=== PATIENT | male | born 1940 | race Caucasian/White ===

== ENCOUNTER → 2017-06-28 10:54 | Outpatient (CLI) | payer MEDICARE, OTHER, SELFPAY ==
--- NOTE | 2017-06-28 | DI.RAD.S_ITS ---
PROCEDURE: XR CERVICAL SPINE 2V OR 3V INDICATIONS: NECK PAIN, SPINAL STENOSIS TECHNIQUE: 3 view(s) of the cervical spine were acquired. COMPARISON: [facility], , CERVICAL SPINE 2 OR 3 VIEWS, 05/13/2014, 11:52. FINDINGS: Bones: Reversal of cervical lordosis, unchanged. No fractures or dislocations to the C7 level. The lateral masses of C1 appear intact on the odontoid view. No suspicious bony lesions. Multilevel disc degeneration and spondylosis C3-4 through C6-7 as before. Soft tissues: No prevertebral soft tissue swelling. Atheromatous calcifications in the carotid bifurcations again noted. IMPRESSION: 1. No acute bony abnormality. 2. Reversal of cervical lordosis and diffuse degenerative disc disease, unchanged. Dictated by: Santos Renteria M.D. on 06/28/2017 at 11:54 Approved by: Santos Renteria M.D. on 06/28/2017 at 11:56
== END ==
PROVIDERS: PCP Family Medicine; Visit Provider Family Medicine
DX: M54.2 Cervicalgia (principal); M50.30 Other cervical disc degeneration, unspecified cervical region
CPT/HCPCS: 72040

== ENCOUNTER 2017-08-12 07:30 | Outpatient (RCR) | payer MEDICARE, OTHER, SELFPAY ==
--- NOTE | 2017-07-11 12:43 | PT.OIE ---
Current Diagnoses Spinal stenosis, cervical region (07/11/17) Other cervical disc degeneration, unspecified cervical region (07/11/17) Cervicalgia (07/11/17) Past Medical History (Last Reviewed 07/11/17 @ 08:42 by Suzie Patterson, PT) CVA (cerebral vascular accident) (Acute) Myocardial infarction (Acute) Provider Visit Care Team Role Provider Type Sol Stockton MD Attending Provider Physician Family Provider Primary Care Provider Specialty: Family Practice Address: [address] [place] [address], [facility] Email: Physical Therapy Initial Evaluation PT-OP-A Visit Information Start: 07/11/17 07:26 Freq: Status: Active Protocol: Document 07/11/17 07:30 AMB (Rec: 07/11/17 08:38 AMB [email or web address]) Out-Patient Physical Therapy Visit Information Visit Information Visit Type Initial Evaluation Visit Note Pt seen for 10 visits previously in 2018. Visit Start Time 07:30 Visit Stop Time 08:10 Total Visit Minutes 40 Visit Number 1 Evaluation Information Evaluation Date 07/11/17 PT-OP-B Current Condition Start: 07/11/17 07:26 Freq: Status: Active Protocol: Document 07/11/17 07:30 AMB (Rec: 07/11/17 08:38 AMB [email or web address]) Current Condition History of Current Condition History of Current Condition The patient reports he has had neck discomfort for the past 1-2 years. He denies numbness tingling, or radiating pain down the arms. He finds the neck is the worst after lying on his orellana. He denies pain when he gets up in the morning. Prior Treatments and Tests Cervical spine X-ray: 06/28/17 : multilevel spondylosis and degenerative disc disease C3-4 , C6-7, reversal of cervical lordosis. Treatment Goals Patient/Caregiver Goals Decrease neck pain, improve range of motion Personal Factors Other Personal Factors That May Effect History of low back pain Therapy/Recovery PT-OP-C Subjective Start: 07/11/17 07:26 Freq: Status: Active Protocol: Document 07/11/17 07:30 AMB (Rec: 07/11/17 08:38 AMB [email or web address]) OP-PT Subjective Patient Comments Patient Comments Patient notes neck feels better with heat, feels better after PT. Patient Questionnaires Oswestry Low Back Index Oswestry Score 18 Oswestry Impairment 1 to 19% Impaired (Score 1-19) OP-PT Pain Assessment Pain Assessment Grid Paper Pain Assessment Grid Completed Yes Location Left Neck Intensity 3 Scale Used Numeric (1 - 10) PT-OP-J Posture/Palpation/Skin Start: 07/11/17 07:26 Freq: Status: Active Protocol: Document 07/11/17 07:30 AMB (Rec: 07/11/17 12:42 AMB [email or web address]) Posture Evaluation Position 1 Evaluation View Posterior Head/C-Spine Posture C-Spine Flattened Forward Head Palpation Assessment Location One Palpation Location cervical spine Palpation Details No pain with central PAs but stiffness throughout. Generally tight throughout posterior neck soft tissue bilaterally. More discomfort with deep palpation on the left. PT-OP-K Range of Motion Start: 07/11/17 07:26 Freq: Status: Active Protocol: Document 07/11/17 07:30 AMB (Rec: 07/11/17 08:50 AMB [email or web address]) Cervical Spine Range of Motion Cervical Spine Active Degrees Testing Position Sitting Flexion 45 Extension 20 Rotation Left 30 Rotation Right 60 Lateral Flexion Left 10 Lateral Flexion Right 20 ROM Limitations Soft Tissue Tightness Bony Restriction PT-OP-M Strength Start: 07/11/17 07:26 Freq: Status: Active Protocol: Document 07/11/17 07:30 AMB (Rec: 07/11/17 08:50 AMB [email or web address]) Hand Poultry Vaccinator/Pinch Strength Hand Dominance Hand Dominance Left Hand Strength Right Poultry Vaccinator (lbs) 90 Left Poultry Vaccinator (lbs) 95 PT-OP-Q Treatments Start: 07/11/17 07:26 Freq: Status: Active Protocol: Document 07/11/17 07:30 AMB (Rec: 07/11/17 12:40 AMB [email or web address]) Manual Therapy Treatment Soft Tissue Mobilization 1 Body Location L UT, levator scap, paraspinals Mobilization Type Sustained Pressure Intensity/Depth Moderate Body Position Sitting Manual Techniques 1 Type stretching with over pressure Body Location cervical spine Body Position Sitting PT-OP-T Assessment and Plan Start: 07/11/17 07:26 Freq: Status: Active Protocol: Document 07/11/17 07:30 AMB (Rec: 07/11/17 09:02 AMB [email or web address]) Physical Therapy Assessment Rehab Potential Rehabilitation Potential Good Evaluation Complexity Number of Personal Factors/Comorbidities 1-2 Number of Body Systems Impaired 3 Clinical Presentation at Evaluation Stable Impairments Impairments Pain Posture ROM Goals 2 Impairment Pain Short Term Goal (STG) The patient will relax on his orellana for 1 hour with neck pain of 2/10 or less. STG Duration 4 weeks Tailor Apprentice Goal (LTG) The patient will watch TV for 3 hours without neck pain. LTG Duration 8 weeks 1 Impairment Range of motion Short Term Goal (STG) The patient will improve his range of motion to 45 degrees of left rotation. STG Duration 4 weeks Tailor Apprentice Goal (LTG) The patient will turn his head to the left so that he can back up his truck without being overly reliant on his mirrors. LTG Duration 8 weeks Assessment Summary Assessment The patient presents with impaired cervical range of motion. Neck pain presents especially with lying on his orellana. No radiating symptoms. He has previously tried physical therapy which he found helpful. He does have a prior history of back pain, but that is not currently bothering him. He will benefit from PT to improve his cervical range of motion and decrease his pain, although he may need to adjust his habit of watching TV from his orellana. Physical Therapy Plan Frequency and Duration Frequency of Treatment 2x/Week Duration of Treatment 8 weeks Plan of Care Start Date 07/11/17 Plan of Care End Date 09/05/17 Therapeutic Interventions Therapeutic Interventions Home Exercise Program Joint Mobilizations Manual Therapy Neuromuscular Re-education Self-Care/Home Management Soft Tissue Mobilization Therapeutic Activities Therapeutic Exercises Modalities Electric Stimulation Hot Packs Traction- Mechanical Ultrasound Next Visit Focus/Plan Next Note Type Treatment Note Please Sign and Return: I have reviewed this Plan of Care and certify that the skilled therapy services above are required to meet the patient?s needs. Physician Signature Date Printed Name and Credentials Clinical Instructor Signature Printed Name and Credentials
--- NOTE | 2017-07-14 13:08 | PT.OTN ---
Physical Therapy Treatment Note PT-OP-A Visit Information Start: 07/11/17 07:26 Freq: Status: Active Protocol: Document 07/14/17 07:30 AMB (Rec: 07/14/17 07:38 AMB [id number]) Out-Patient Physical Therapy Visit Information Visit Information Visit Type Treatment Note Visit Start Time 07:30 Visit Stop Time 08:10 Total Visit Minutes 40 Visit Number 2 Evaluation Information Evaluation Date 07/14/17 PT-OP-B Current Condition Start: 07/11/17 07:26 Freq: Status: Active Protocol: Document 07/11/17 07:30 AMB (Rec: 07/11/17 08:38 AMB [email or web address]) Current Condition History of Current Condition History of Current Condition The patient reports he has had neck discomfort for the past 1-2 years. He denies numbness tingling, or radiating pain down the arms. He finds the neck is the worst after lying on his orellana. He denies pain when he gets up in the morning. Prior Treatments and Tests Cervical spine X-ray: 06/28/17 : multilevel spondylosis and degenerative disc disease C3-4 , C6-7, reversal of cervical lordosis. Treatment Goals Patient/Caregiver Goals Decrease neck pain, improve range of motion Personal Factors Other Personal Factors That May Effect History of low back pain Therapy/Recovery PT-OP-C Subjective Start: 07/11/17 07:26 Freq: Status: Active Protocol: Document 07/14/17 07:30 AMB (Rec: 07/14/17 07:38 AMB [id number]) OP-PT Subjective Patient Comments Patient Comments Pt is planning to buy a recliner. He has been busy with pruning. PT-OP-J Posture/Palpation/Skin Start: 07/11/17 07:26 Freq: Status: Active Protocol: Document 07/11/17 07:30 AMB (Rec: 07/11/17 12:42 AMB [email or web address]) Posture Evaluation Position 1 Evaluation View Posterior Head/C-Spine Posture C-Spine Flattened Forward Head Palpation Assessment Location One Palpation Location cervical spine Palpation Details No pain with central PAs but stiffness throughout. Generally tight throughout posterior neck soft tissue bilaterally. More discomfort with deep palpation on the left. PT-OP-K Range of Motion Start: 07/11/17 07:26 Freq: Status: Active Protocol: Document 07/11/17 07:30 AMB (Rec: 07/11/17 08:50 AMB [email or web address]) Cervical Spine Range of Motion Cervical Spine Active Degrees Testing Position Sitting Flexion 45 Extension 20 Rotation Left 30 Rotation Right 60 Lateral Flexion Left 10 Lateral Flexion Right 20 ROM Limitations Soft Tissue Tightness Bony Restriction PT-OP-M Strength Start: 07/11/17 07:26 Freq: Status: Active Protocol: Document 07/11/17 07:30 AMB (Rec: 07/11/17 08:50 AMB [email or web address]) Hand Aeronautical Project Engineer/Pinch Strength Hand Dominance Hand Dominance Left Hand Strength Right Aeronautical Project Engineer (lbs) 90 Left Aeronautical Project Engineer (lbs) 95 PT-OP-Q Treatments Start: 07/11/17 07:26 Freq: Status: Active Protocol: Document 07/14/17 07:30 AMB (Rec: 07/14/17 13:08 AMB [email or web address]) Manual Therapy Treatment Soft Tissue Mobilization 1 Body Location L UT, levator scap, paraspinals Mobilization Type Sustained Pressure Intensity/Depth Moderate Body Position Supine Joint Mobilizations 1 Joint C4-7 Direction unilateral PAs Grade III Body Position Hooklying Reps/Duration 15 x 3 Manual Traction Cervical Body Position Supine PT-OP-T Assessment and Plan Start: 07/11/17 07:26 Freq: Status: Active Protocol: Document 07/14/17 07:30 AMB (Rec: 07/14/17 13:08 AMB [email or web address]) Physical Therapy Assessment Assessment Summary Assessment Pt continues to be stiff into L rotation. Physical Therapy Plan Frequency and Duration Frequency of Treatment 2x/Week Duration of Treatment 8 weeks Plan of Care Start Date 07/11/17 Plan of Care End Date 09/05/17 Next Visit Focus/Plan Next Note Type Treatment Note Next Visit Plan Progress cervical rotation ROM Please Sign and Return: I have reviewed this Plan of Care and certify that the skilled therapy services above are required to meet the patient?s needs. Physician Signature Date Printed Name and Credentials Clinical Instructor Signature Printed Name and Credentials
--- NOTE | 2017-07-18 15:17 | PT.OTN ---
Current Diagnoses Cervicalgia (07/18/17) Physical Therapy Treatment Note PT-OP-A Visit Information Start: 07/11/17 07:26 Freq: Status: Active Protocol: Document 07/18/17 07:30 AMB (Rec: 07/18/17 07:38 AMB [id number]) Out-Patient Physical Therapy Visit Information Visit Information Visit Type Treatment Note Visit Start Time 07:30 Visit Stop Time 08:10 Total Visit Minutes 40 Visit Number 3 Evaluation Information Evaluation Date 07/14/17 PT-OP-B Current Condition Start: 07/11/17 07:26 Freq: Status: Active Protocol: Document 07/11/17 07:30 AMB (Rec: 07/11/17 08:38 AMB [email or web address]) Current Condition History of Current Condition History of Current Condition The patient reports he has had neck discomfort for the past 1-2 years. He denies numbness tingling, or radiating pain down the arms. He finds the neck is the worst after lying on his orellana. He denies pain when he gets up in the morning. Prior Treatments and Tests Cervical spine X-ray: 06/28/17 : multilevel spondylosis and degenerative disc disease C3-4 , C6-7, reversal of cervical lordosis. Treatment Goals Patient/Caregiver Goals Decrease neck pain, improve range of motion Personal Factors Other Personal Factors That May Effect History of low back pain Therapy/Recovery PT-OP-C Subjective Start: 07/11/17 07:26 Freq: Status: Active Protocol: Document 07/18/17 07:30 AMB (Rec: 07/18/17 07:38 AMB [id number]) OP-PT Subjective Patient Comments Patient Comments Pt has not bought the recliner yet, is planning on going clam digging. PT-OP-J Posture/Palpation/Skin Start: 07/11/17 07:26 Freq: Status: Active Protocol: Document 07/11/17 07:30 AMB (Rec: 07/11/17 12:42 AMB [email or web address]) Posture Evaluation Position 1 Evaluation View Posterior Head/C-Spine Posture C-Spine Flattened Forward Head Palpation Assessment Location One Palpation Location cervical spine Palpation Details No pain with central PAs but stiffness throughout. Generally tight throughout posterior neck soft tissue bilaterally. More discomfort with deep palpation on the left. PT-OP-K Range of Motion Start: 07/11/17 07:26 Freq: Status: Active Protocol: Document 07/11/17 07:30 AMB (Rec: 07/11/17 08:50 AMB [email or web address]) Cervical Spine Range of Motion Cervical Spine Active Degrees Testing Position Sitting Flexion 45 Extension 20 Rotation Left 30 Rotation Right 60 Lateral Flexion Left 10 Lateral Flexion Right 20 ROM Limitations Soft Tissue Tightness Bony Restriction PT-OP-M Strength Start: 07/11/17 07:26 Freq: Status: Active Protocol: Document 07/11/17 07:30 AMB (Rec: 07/11/17 08:50 AMB [email or web address]) Hand Hide Curer/Pinch Strength Hand Dominance Hand Dominance Left Hand Strength Right Hide Curer (lbs) 90 Left Hide Curer (lbs) 95 PT-OP-Q Treatments Start: 07/11/17 07:26 Freq: Status: Active Protocol: Document 07/18/17 07:30 AMB (Rec: 07/18/17 13:56 AMB [id number]) Manual Therapy Treatment Soft Tissue Mobilization 1 Body Location L UT, levator scap, paraspinals Mobilization Type Sustained Pressure Intensity/Depth Moderate Body Position Supine Joint Mobilizations 1 Joint C4-7 Direction unilateral PAs Grade III Body Position Hooklying Reps/Duration 15 x 3 Manual Traction Cervical Body Position Supine Manual Techniques 2 Type contract relax Comments L rotation 1 Type stretching with over pressure Body Location cervical spine Body Position Sitting PT-OP-T Assessment and Plan Start: 07/11/17 07:26 Freq: Status: Active Protocol: Document 07/18/17 07:30 AMB (Rec: 07/18/17 13:56 AMB [id number]) Physical Therapy Assessment Assessment Summary Assessment Improved rotation to the right , L remains stiff. Physical Therapy Plan Frequency and Duration Frequency of Treatment 2x/Week Duration of Treatment 8 weeks Plan of Care Start Date 07/11/17 Plan of Care End Date 09/05/17 Next Visit Focus/Plan Next Note Type Treatment Note Next Visit Plan Progress cervical rotation ROM Please Sign and Return: I have reviewed this Plan of Care and certify that the skilled therapy services above are required to meet the patient?s needs. Physician Signature Date Printed Name and Credentials Clinical Instructor Signature Printed Name and Credentials
--- NOTE | 2017-07-21 08:14 | PT.OTN ---
Current Diagnoses Cervicalgia (07/21/17) Physical Therapy Treatment Note PT-OP-A Visit Information Start: 07/11/17 07:26 Freq: Status: Active Protocol: Document 07/21/17 07:30 AMB (Rec: 07/21/17 07:32 AMB [id number]) Out-Patient Physical Therapy Visit Information Visit Information Visit Type Treatment Note Visit Start Time 07:30 Visit Stop Time 08:10 Total Visit Minutes 40 Visit Number 4 Evaluation Information Evaluation Date 07/14/17 PT-OP-B Current Condition Start: 07/11/17 07:26 Freq: Status: Active Protocol: Document 07/11/17 07:30 AMB (Rec: 07/11/17 08:38 AMB [email or web address]) Current Condition History of Current Condition History of Current Condition The patient reports he has had neck discomfort for the past 1-2 years. He denies numbness tingling, or radiating pain down the arms. He finds the neck is the worst after lying on his orellana. He denies pain when he gets up in the morning. Prior Treatments and Tests Cervical spine X-ray: 06/28/17 : multilevel spondylosis and degenerative disc disease C3-4 , C6-7, reversal of cervical lordosis. Treatment Goals Patient/Caregiver Goals Decrease neck pain, improve range of motion Personal Factors Other Personal Factors That May Effect History of low back pain Therapy/Recovery PT-OP-C Subjective Start: 07/11/17 07:26 Freq: Status: Active Protocol: Document 07/21/17 07:30 AMB (Rec: 07/21/17 07:32 AMB [id number]) OP-PT Subjective Patient Comments Patient Reported Progress Improving PT-OP-J Posture/Palpation/Skin Start: 07/11/17 07:26 Freq: Status: Active Protocol: Document 07/11/17 07:30 AMB (Rec: 07/11/17 12:42 AMB [email or web address]) Posture Evaluation Position 1 Evaluation View Posterior Head/C-Spine Posture C-Spine Flattened Forward Head Palpation Assessment Location One Palpation Location cervical spine Palpation Details No pain with central PAs but stiffness throughout. Generally tight throughout posterior neck soft tissue bilaterally. More discomfort with deep palpation on the left. PT-OP-K Range of Motion Start: 07/11/17 07:26 Freq: Status: Active Protocol: Document 07/11/17 07:30 AMB (Rec: 07/11/17 08:50 AMB [email or web address]) Cervical Spine Range of Motion Cervical Spine Active Degrees Testing Position Sitting Flexion 45 Extension 20 Rotation Left 30 Rotation Right 60 Lateral Flexion Left 10 Lateral Flexion Right 20 ROM Limitations Soft Tissue Tightness Bony Restriction PT-OP-M Strength Start: 07/11/17 07:26 Freq: Status: Active Protocol: Document 07/11/17 07:30 AMB (Rec: 07/11/17 08:50 AMB [email or web address]) Hand Vending Supervisor/Pinch Strength Hand Dominance Hand Dominance Left Hand Strength Right Vending Supervisor (lbs) 90 Left Vending Supervisor (lbs) 95 PT-OP-Q Treatments Start: 07/11/17 07:26 Freq: Status: Active Protocol: Document 07/21/17 07:30 AMB (Rec: 07/21/17 07:32 AMB [id number]) Manual Therapy Treatment Soft Tissue Mobilization 1 Body Location L UT, levator scap, paraspinals Mobilization Type Sustained Pressure Intensity/Depth Moderate Body Position Supine Joint Mobilizations 1 Joint C4-7 Direction unilateral PAs Grade III Body Position Hooklying Reps/Duration 15 x 3 Manual Traction Cervical Body Position Supine Manual Techniques 2 Type contract relax Comments L rotation 1 Type stretching with over pressure Body Location cervical spine Body Position Sitting PT-OP-T Assessment and Plan Start: 07/11/17 07:26 Freq: Status: Active Protocol: Document 07/21/17 07:30 AMB (Rec: 07/21/17 07:32 AMB [id number]) Physical Therapy Assessment Assessment Summary Assessment L rotation slightly improved, continues to be stiff Physical Therapy Plan Frequency and Duration Frequency of Treatment 2x/Week Duration of Treatment 8 weeks Plan of Care Start Date 07/11/17 Plan of Care End Date 09/05/17 Next Visit Focus/Plan Next Note Type Treatment Note Next Visit Plan Progress HEP Please Sign and Return: I have reviewed this Plan of Care and certify that the skilled therapy services above are required to meet the patient?s needs. Physician Signature Date Printed Name and Credentials Clinical Instructor Signature Printed Name and Credentials
--- NOTE | 2017-07-25 10:30 | PT.OTN ---
Current Diagnoses Cervicalgia (07/25/17) Physical Therapy Treatment Note PT-OP-A Visit Information Start: 07/11/17 07:26 Freq: Status: Active Protocol: Document 07/25/17 07:30 AMB (Rec: 07/25/17 07:31 AMB [id number]) Out-Patient Physical Therapy Visit Information Visit Information Visit Type Treatment Note Visit Start Time 07:30 Visit Stop Time 08:10 Total Visit Minutes 40 Visit Number 5 Evaluation Information Evaluation Date 07/11/17 PT-OP-B Current Condition Start: 07/11/17 07:26 Freq: Status: Active Protocol: Document 07/11/17 07:30 AMB (Rec: 07/11/17 08:38 AMB [email or web address]) Current Condition History of Current Condition History of Current Condition The patient reports he has had neck discomfort for the past 1-2 years. He denies numbness tingling, or radiating pain down the arms. He finds the neck is the worst after lying on his orellana. He denies pain when he gets up in the morning. Prior Treatments and Tests Cervical spine X-ray: 06/28/17 : multilevel spondylosis and degenerative disc disease C3-4 , C6-7, reversal of cervical lordosis. Treatment Goals Patient/Caregiver Goals Decrease neck pain, improve range of motion Personal Factors Other Personal Factors That May Effect History of low back pain Therapy/Recovery PT-OP-C Subjective Start: 07/11/17 07:26 Freq: Status: Active Protocol: Document 07/25/17 07:30 AMB (Rec: 07/25/17 07:31 AMB [id number]) OP-PT Subjective Patient Comments Patient Reported Progress Same PT-OP-J Posture/Palpation/Skin Start: 07/11/17 07:26 Freq: Status: Active Protocol: Document 07/11/17 07:30 AMB (Rec: 07/11/17 12:42 AMB [email or web address]) Posture Evaluation Position 1 Evaluation View Posterior Head/C-Spine Posture C-Spine Flattened Forward Head Palpation Assessment Location One Palpation Location cervical spine Palpation Details No pain with central PAs but stiffness throughout. Generally tight throughout posterior neck soft tissue bilaterally. More discomfort with deep palpation on the left. PT-OP-K Range of Motion Start: 07/11/17 07:26 Freq: Status: Active Protocol: Document 07/11/17 07:30 AMB (Rec: 07/11/17 08:50 AMB [email or web address]) Cervical Spine Range of Motion Cervical Spine Active Degrees Testing Position Sitting Flexion 45 Extension 20 Rotation Left 30 Rotation Right 60 Lateral Flexion Left 10 Lateral Flexion Right 20 ROM Limitations Soft Tissue Tightness Bony Restriction PT-OP-M Strength Start: 07/11/17 07:26 Freq: Status: Active Protocol: Document 07/11/17 07:30 AMB (Rec: 07/11/17 08:50 AMB [email or web address]) Hand Ore Smelter/Pinch Strength Hand Dominance Hand Dominance Left Hand Strength Right Ore Smelter (lbs) 90 Left Ore Smelter (lbs) 95 PT-OP-Q Treatments Start: 07/11/17 07:26 Freq: Status: Active Protocol: Document 07/25/17 07:30 AMB (Rec: 07/25/17 07:31 AMB [id number]) Manual Therapy Treatment Soft Tissue Mobilization 1 Body Location L UT, levator scap, paraspinals Mobilization Type Sustained Pressure Intensity/Depth Moderate Body Position Supine Joint Mobilizations 1 Joint C4-7 Direction unilateral PAs Grade III Body Position Hooklying Reps/Duration 15 x 3 Manual Traction Cervical Body Position Supine Manual Techniques 2 Type contract relax Comments L rotation 1 Type stretching with over pressure Body Location cervical spine Body Position Sitting PT-OP-R Modalities Start: 07/11/17 07:26 Freq: Status: Active Protocol: Document 07/25/17 07:30 AMB (Rec: 07/25/17 10:29 AMB [email or web address]) Hot Pack/Cold Pack Treatment Hot Pack Location cervical spine during manual Patient Position Hooklying Treatment Duration (minutes) 30 Patient Tolerance Good PT-OP-T Assessment and Plan Start: 07/11/17 07:26 Freq: Status: Active Protocol: Document 07/25/17 07:30 AMB (Rec: 07/25/17 10:29 AMB [email or web address]) Physical Therapy Assessment Assessment Summary Assessment Pt reports he can continue to feel discomfort at end range rotation and sidebending. Physical Therapy Plan Next Visit Focus/Plan Next Note Type Treatment Note Next Visit Plan Review self mobilization with movement Please Sign and Return: I have reviewed this Plan of Care and certify that the skilled therapy services above are required to meet the patient?s needs. Physician Signature Date Printed Name and Credentials Clinical Instructor Signature Printed Name and Credentials
--- NOTE | 2017-07-29 08:15 | PT.OTN ---
Current Diagnoses Cervicalgia (07/29/17) Physical Therapy Treatment Note PT-OP-A Visit Information Start: 07/11/17 07:26 Freq: Status: Active Protocol: Document 07/29/17 07:30 AMB (Rec: 07/29/17 07:30 AMB [id number]) Out-Patient Physical Therapy Visit Information Visit Information Visit Type Treatment Note Visit Start Time 07:30 Visit Stop Time 08:10 Total Visit Minutes 40 Visit Number 6 Evaluation Information Evaluation Date 07/11/17 PT-OP-B Current Condition Start: 07/11/17 07:26 Freq: Status: Active Protocol: Document 07/11/17 07:30 AMB (Rec: 07/11/17 08:38 AMB [email or web address]) Current Condition History of Current Condition History of Current Condition The patient reports he has had neck discomfort for the past 1-2 years. He denies numbness tingling, or radiating pain down the arms. He finds the neck is the worst after lying on his orellana. He denies pain when he gets up in the morning. Prior Treatments and Tests Cervical spine X-ray: 06/28/17 : multilevel spondylosis and degenerative disc disease C3-4 , C6-7, reversal of cervical lordosis. Treatment Goals Patient/Caregiver Goals Decrease neck pain, improve range of motion Personal Factors Other Personal Factors That May Effect History of low back pain Therapy/Recovery PT-OP-C Subjective Start: 07/11/17 07:26 Freq: Status: Active Protocol: Document 07/29/17 07:30 AMB (Rec: 07/29/17 07:30 AMB [id number]) OP-PT Subjective Patient Comments Patient Comments Pt reports stiffness at end range cervical rotation and sidebending, not painful at midrange. PT-OP-J Posture/Palpation/Skin Start: 07/11/17 07:26 Freq: Status: Active Protocol: Document 07/11/17 07:30 AMB (Rec: 07/11/17 12:42 AMB [email or web address]) Posture Evaluation Position 1 Evaluation View Posterior Head/C-Spine Posture C-Spine Flattened Forward Head Palpation Assessment Location One Palpation Location cervical spine Palpation Details No pain with central PAs but stiffness throughout. Generally tight throughout posterior neck soft tissue bilaterally. More discomfort with deep palpation on the left. PT-OP-K Range of Motion Start: 06/04/18 07:26 Freq: Status: Active Protocol: Document 07/11/17 07:30 AMB (Rec: 07/11/17 08:50 AMB [email or web address]) Cervical Spine Range of Motion Cervical Spine Active Degrees Testing Position Sitting Flexion 45 Extension 20 Rotation Left 30 Rotation Right 60 Lateral Flexion Left 10 Lateral Flexion Right 20 ROM Limitations Soft Tissue Tightness Bony Restriction PT-OP-M Strength Start: 07/11/17 07:26 Freq: Status: Active Protocol: Document 07/11/17 07:30 AMB (Rec: 07/11/17 08:50 AMB [email or web address]) Hand Production Operations Manager/Pinch Strength Hand Dominance Hand Dominance Left Hand Strength Right Production Operations Manager (lbs) 90 Left Production Operations Manager (lbs) 95 PT-OP-Q Treatments Start: 07/11/17 07:26 Freq: Status: Active Protocol: Document 07/29/17 07:30 AMB (Rec: 07/29/17 07:30 AMB [id number]) Manual Therapy Treatment Soft Tissue Mobilization 1 Body Location L UT, levator scap, paraspinals Mobilization Type Sustained Pressure Intensity/Depth Moderate Body Position Supine Joint Mobilizations 1 Joint C4-7 Direction unilateral PAs Grade III Body Position Hooklying Reps/Duration 15 x 3 Manual Traction Cervical Body Position Supine Manual Techniques 2 Type contract relax Comments B rotation 1 Type stretching with over pressure Body Location cervical spine Body Position Sitting PT-OP-R Modalities Start: 07/11/17 07:26 Freq: Status: Active Protocol: Document 07/29/17 07:30 AMB (Rec: 07/29/17 08:15 AMB [id number]) Hot Pack/Cold Pack Treatment Hot Pack Location cervical spine Patient Position Hooklying Patient Tolerance Good Comments with manual therapy PT-OP-T Assessment and Plan Start: 07/11/17 07:26 Freq: Status: Active Protocol: Document 07/29/17 07:30 AMB (Rec: 07/29/17 07:30 AMB [id number]) Physical Therapy Assessment Assessment Summary Assessment Pt has been careful with his body mechanics, so has not been noticing as much pain, but ROM remains stiff. Physical Therapy Plan Next Visit Focus/Plan Next Note Type Treatment Note Next Visit Plan Review stretching techniques
--- NOTE | 2017-08-01 10:04 | PT.OTN ---
Current Diagnoses Cervicalgia (08/01/17) Physical Therapy Treatment Note PT-OP-A Visit Information Start: 07/11/17 07:26 Freq: Status: Active Protocol: Document 08/01/17 07:30 AMB (Rec: 08/01/17 07:38 AMB [id number]) Out-Patient Physical Therapy Visit Information Visit Information Visit Type Treatment Note Visit Start Time 07:30 Visit Stop Time 08:15 Total Visit Minutes 45 Visit Number 7 Evaluation Information Evaluation Date 07/11/17 PT-OP-B Current Condition Start: 07/11/17 07:26 Freq: Status: Active Protocol: Document 07/11/17 07:30 AMB (Rec: 07/11/17 08:38 AMB [email or web address]) Current Condition History of Current Condition History of Current Condition The patient reports he has had neck discomfort for the past 1-2 years. He denies numbness tingling, or radiating pain down the arms. He finds the neck is the worst after lying on his orellana. He denies pain when he gets up in the morning. Prior Treatments and Tests Cervical spine X-ray: 06/28/17 : multilevel spondylosis and degenerative disc disease C3-4 , C6-7, reversal of cervical lordosis. Treatment Goals Patient/Caregiver Goals Decrease neck pain, improve range of motion Personal Factors Other Personal Factors That May Effect History of low back pain Therapy/Recovery PT-OP-C Subjective Start: 07/11/17 07:26 Freq: Status: Active Protocol: Document 08/01/17 07:30 AMB (Rec: 08/01/17 07:38 AMB [id number]) OP-PT Subjective Patient Comments Patient Comments Standing on the cement in his shop increased ankle pain, but didn't bother the neck. PT-OP-J Posture/Palpation/Skin Start: 07/11/17 07:26 Freq: Status: Active Protocol: Document 07/11/17 07:30 AMB (Rec: 07/11/17 12:42 AMB [email or web address]) Posture Evaluation Position 1 Evaluation View Posterior Head/C-Spine Posture C-Spine Flattened Forward Head Palpation Assessment Location One Palpation Location cervical spine Palpation Details No pain with central PAs but stiffness throughout. Generally tight throughout posterior neck soft tissue bilaterally. More discomfort with deep palpation on the left. PT-OP-K Range of Motion Start: 07/11/17 07:26 Freq: Status: Active Protocol: Document 07/11/17 07:30 AMB (Rec: 07/11/17 08:50 AMB [email or web address]) Cervical Spine Range of Motion Cervical Spine Active Degrees Testing Position Sitting Flexion 45 Extension 20 Rotation Left 30 Rotation Right 60 Lateral Flexion Left 10 Lateral Flexion Right 20 ROM Limitations Soft Tissue Tightness Bony Restriction PT-OP-M Strength Start: 07/11/17 07:26 Freq: Status: Active Protocol: Document 07/11/17 07:30 AMB (Rec: 07/11/17 08:50 AMB [email or web address]) Hand Headline Writer/Pinch Strength Hand Dominance Hand Dominance Left Hand Strength Right Headline Writer (lbs) 90 Left Headline Writer (lbs) 95 PT-OP-Q Treatments Start: 07/11/17 07:26 Freq: Status: Active Protocol: Document 08/01/17 07:30 AMB (Rec: 08/01/17 10:00 AMB [id number]) Manual Therapy Treatment Soft Tissue Mobilization 1 Body Location L UT, levator scap, paraspinals Mobilization Type Sustained Pressure Intensity/Depth Moderate Body Position Supine Joint Mobilizations 1 Joint C4-7 Direction unilateral PAs Grade III Body Position Hooklying Reps/Duration 15 x 3 Manual Traction Cervical Body Position Supine Manual Techniques 2 Type contract relax Comments B rotation 1 Type stretching with over pressure Body Location cervical spine Body Position Sitting PT-OP-R Modalities Start: 07/11/17 07:26 Freq: Status: Active Protocol: Document 08/01/17 07:30 AMB (Rec: 08/01/17 10:00 AMB [id number]) Hot Pack/Cold Pack Treatment Hot Pack Location cervical spine Patient Position Hooklying Patient Tolerance Good Comments with manual therapy PT-OP-T Assessment and Plan Start: 07/11/17 07:26 Freq: Status: Active Protocol: Document 08/01/17 07:30 AMB (Rec: 08/01/17 10:00 AMB [id number]) Physical Therapy Assessment Assessment Summary Assessment Pt has been tolerating PT well , lying on the orellana can make the neck stiff. Physical Therapy Plan Frequency and Duration Frequency of Treatment 2x/Week Duration of Treatment 8 weeks Plan of Care Start Date 07/11/17 Plan of Care End Date 09/05/17 Next Visit Focus/Plan Next Note Type Treatment Note Next Visit Plan Review HEP
--- NOTE | 2017-08-05 08:15 | PT.OTN ---
Current Diagnoses Cervicalgia (08/05/17) Physical Therapy Treatment Note PT-OP-A Visit Information Start: 07/11/17 07:26 Freq: Status: Active Protocol: Document 08/05/17 07:30 AMB (Rec: 08/05/17 07:37 AMB [id number]) Out-Patient Physical Therapy Visit Information Visit Information Visit Type Treatment Note Visit Start Time 07:30 Visit Stop Time 08:10 Total Visit Minutes 40 Visit Number 8 Evaluation Information Evaluation Date 07/11/17 PT-OP-B Current Condition Start: 07/11/17 07:26 Freq: Status: Active Protocol: Document 07/11/17 07:30 AMB (Rec: 07/11/17 08:38 AMB [email or web address]) Current Condition History of Current Condition History of Current Condition The patient reports he has had neck discomfort for the past 1-2 years. He denies numbness tingling, or radiating pain down the arms. He finds the neck is the worst after lying on his orellana. He denies pain when he gets up in the morning. Prior Treatments and Tests Cervical spine X-ray: 06/28/17 : multilevel spondylosis and degenerative disc disease C3-4 , C6-7, reversal of cervical lordosis. Treatment Goals Patient/Caregiver Goals Decrease neck pain, improve range of motion Personal Factors Other Personal Factors That May Effect History of low back pain Therapy/Recovery PT-OP-C Subjective Start: 07/11/17 07:26 Freq: Status: Active Protocol: Document 08/05/17 07:30 AMB (Rec: 08/05/17 07:37 AMB [id number]) OP-PT Subjective Patient Comments Patient Comments Neck feeling good this morning . Shower makes it feel better , no problem getting up from bed, but the orellana angle and still be a problem PT-OP-J Posture/Palpation/Skin Start: 07/11/17 07:26 Freq: Status: Active Protocol: Document 07/11/17 07:30 AMB (Rec: 07/11/17 12:42 AMB [email or web address]) Posture Evaluation Position 1 Evaluation View Posterior Head/C-Spine Posture C-Spine Flattened Forward Head Palpation Assessment Location One Palpation Location cervical spine Palpation Details No pain with central PAs but stiffness throughout. Generally tight throughout posterior neck soft tissue bilaterally. More discomfort with deep palpation on the left. PT-OP-K Range of Motion Start: 07/11/17 07:26 Freq: Status: Active Protocol: Document 07/11/17 07:30 AMB (Rec: 07/11/17 08:50 AMB [email or web address]) Cervical Spine Range of Motion Cervical Spine Active Degrees Testing Position Sitting Flexion 45 Extension 20 Rotation Left 30 Rotation Right 60 Lateral Flexion Left 10 Lateral Flexion Right 20 ROM Limitations Soft Tissue Tightness Bony Restriction PT-OP-M Strength Start: 07/11/17 07:26 Freq: Status: Active Protocol: Document 07/11/17 07:30 AMB (Rec: 07/11/17 08:50 AMB [email or web address]) Hand Mobile Product Manager/Pinch Strength Hand Dominance Hand Dominance Left Hand Strength Right Mobile Product Manager (lbs) 90 Left Mobile Product Manager (lbs) 95 PT-OP-Q Treatments Start: 07/11/17 07:26 Freq: Status: Active Protocol: Document 08/05/17 07:30 AMB (Rec: 08/05/17 08:13 AMB [id number]) Manual Therapy Treatment Soft Tissue Mobilization 1 Body Location L UT, levator scap, paraspinals Mobilization Type Sustained Pressure Intensity/Depth Moderate Body Position Supine Joint Mobilizations 1 Joint C4-7 Direction unilateral PAs Grade III Body Position Hooklying Reps/Duration 15 x 3 Manual Traction Cervical Body Position Supine Manual Techniques 2 Type contract relax Comments B rotation 1 Type stretching with over pressure Body Location cervical spine Body Position Sitting PT-OP-R Modalities Start: 07/11/17 07:26 Freq: Status: Active Protocol: Document 08/05/17 07:30 AMB (Rec: 08/05/17 08:13 AMB [id number]) Hot Pack/Cold Pack Treatment Hot Pack Location cervical spine Patient Position Hooklying Patient Tolerance Good Comments with manual therapy PT-OP-T Assessment and Plan Start: 07/11/17 07:26 Freq: Status: Active Protocol: Document 08/05/17 07:30 AMB (Rec: 08/05/17 08:13 AMB [id number]) Physical Therapy Assessment Assessment Summary Assessment Begin discussing d/c as pt is doing well Physical Therapy Plan Frequency and Duration Frequency of Treatment 2x/Week Duration of Treatment 8 weeks Plan of Care Start Date 07/11/17 Plan of Care End Date 09/05/17 Next Visit Focus/Plan Next Note Type Treatment Note Next Visit Plan Review HEP
--- NOTE | 2017-08-12 15:36 | PT.OTN ---
Current Diagnoses Cervicalgia (08/12/17) Physical Therapy Treatment Note PT-OP-A Visit Information Start: 07/11/17 07:26 Freq: Status: Active Protocol: Document 08/12/17 07:30 AMB (Rec: 08/12/17 07:31 AMB [id number]) Out-Patient Physical Therapy Visit Information Visit Information Visit Type Discharge Summary Visit Start Time 07:30 Visit Stop Time 08:10 Total Visit Minutes 40 Visit Number 9 Evaluation Information Evaluation Date 07/11/17 PT-OP-B Current Condition Start: 07/11/17 07:26 Freq: Status: Active Protocol: Document 07/11/17 07:30 AMB (Rec: 07/11/17 08:38 AMB [email or web address]) Current Condition History of Current Condition History of Current Condition The patient reports he has had neck discomfort for the past 1-2 years. He denies numbness tingling, or radiating pain down the arms. He finds the neck is the worst after lying on his orellana. He denies pain when he gets up in the morning. Prior Treatments and Tests Cervical spine X-ray: 06/28/17 : multilevel spondylosis and degenerative disc disease C3-4 , C6-7, reversal of cervical lordosis. 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 PT-OP-J Posture/Palpation/Skin Start: 07/11/17 07:26 Freq: Status: Active Protocol: Document 07/11/17 07:30 AMB (Rec: 07/11/17 12:42 AMB [email or web address]) Posture Evaluation Position 1 Evaluation View Posterior Head/C-Spine Posture C-Spine Flattened Forward Head Palpation Assessment Location One Palpation Location cervical spine Palpation Details No pain with central PAs but stiffness throughout. Generally tight throughout posterior neck soft tissue bilaterally. More discomfort with deep palpation on the left. PT-OP-K Range of Motion Start: 07/11/17 07:26 Freq: Status: Active Protocol: Document 08/12/17 07:30 AMB (Rec: 08/12/17 07:45 AMB [id number]) Cervical Spine Range of Motion Cervical Spine Active Degrees Flexion 35 Extension 26 Rotation Left 40 Rotation Right 60 Lateral Flexion Left 15 Lateral Flexion Right 25 PT-OP-M Strength Start: 07/11/17 07:26 Freq: Status: Active Protocol: Document 07/11/17 07:30 AMB (Rec: 07/11/17 08:50 AMB [email or web address]) Hand Tape Transferrer/Pinch Strength Hand Dominance Hand Dominance Left Hand Strength Right Tape Transferrer (lbs) 90 Left Tape Transferrer (lbs) 95 PT-OP-Q Treatments Start: 07/11/17 07:26 Freq: Status: Active Protocol: Document 08/12/17 07:30 AMB (Rec: 08/12/17 15:25 AMB [email or web address]) Manual Therapy Treatment Soft Tissue Mobilization 1 Body Location L UT, levator scap, paraspinals Mobilization Type Sustained Pressure Intensity/Depth Moderate Body Position Supine Joint Mobilizations 1 Joint C4-7 Direction unilateral PAs Grade III Body Position Hooklying Reps/Duration 15 x 3 Manual Traction Cervical Body Position Supine Manual Techniques 2 Type contract relax Comments B rotation 1 Type stretching with over pressure Body Location cervical spine Body Position Sitting PT-OP-R Modalities Start: 07/11/17 07:26 Freq: Status: Active Protocol: Document 08/12/17 07:30 AMB (Rec: 08/12/17 15:25 AMB [email or web address]) Hot Pack/Cold Pack Treatment Hot Pack Location cervical spine Patient Position Hooklying Patient Tolerance Good Comments with manual therapy PT-OP-T Assessment and Plan Start: 07/11/17 07:26 Freq: Status: Active Protocol: Document 08/12/17 07:30 AMB (Rec: 08/12/17 07:31 AMB [id number]) Physical Therapy Assessment Goals 2 Impairment Pain Short Term Goal (STG) The patient will relax on his orellana for 1 hour with neck pain of 2/10 or less. MET STG Duration 4 weeks Program Manager Rn Goal (LTG) The patient will watch TV for 3 hours without neck pain. NOT MET LTG Duration 8 weeks 1 Impairment Range of motion Short Term Goal (STG) The patient will improve his range of motion to 45 degrees of left rotation. PROGRESS MADE STG Duration 4 weeks Penitentiary Goal (LTG) The patient will turn his head to the left so that he can back up his truck without being overly reliant on his mirrors. NOT MET LTG Duration 8 weeks Assessment Summary Assessment The patient continues to have stiffness with cervical rotation to the left. He has improved by 10 degrees, but he will need to continue stretching his neck. Would recommend he not rest his head on the end of his couch, as this is his most painful activity. Physical Therapy Plan Discharge Physical Therapy Discharge Reasons Plateau in Progress Discharge Comments The pt really does not notice neck pain, except for when he is on his couch for an extended period of time, lying down on it. He does not get pain with sleeping in his bed.
== END 2017-10-26 13:05 ==
LOC: PHYS 07:30
PROVIDERS: Family Provider Family Medicine; PCP Family Medicine; Visit Provider Family Medicine
DX: M54.2 Cervicalgia (principal)
CPT/HCPCS: 97140; 97161

== ENCOUNTER 2017-11-15 08:34 | Outpatient (CLI) | payer MEDICARE, OTHER, SELFPAY ==
[2017-11-15] VITALS (8 sets, daily range): BP systolic 117–143; BP diastolic 73–98; PULSE 60–68; RESP 18–22; TEMP 35.9; O2SAT 96–100
--- NOTE | 2017-11-15 08:36 | DI.RAD.S_ITS ---
PROCEDURE: PAIN L/SI FACET INJ/BLK 1STL INDICATIONS: SPONDYLOSIS FINDINGS: Fluoroscopic spot filming was performed to verify placement of spinal needles at the left L4, L5, S1 level(s), as labeled on the films. Appropriate location(s) of the needle tip(s) was confirmed by injection of iodinated contrast. Dictated by: Darin Brambila M.D. on 11/16/2017 at 8:57 Approved by: Darin Brambila M.D. on 11/16/2017 at 8:58
[2017-11-15] MEDS: MIDAZOLAM 5 MG/5 ML VIAL IV (09:36)
--- NOTE | 2017-11-15 09:45 | PM.PROC.1 ---
Procedures Date/Time Date of procedure: 11/15/17 Time of procedure: 09:45 General Procedure description: POST OP DIAGNOSIS 1. FACET ARTHROPATHY PROCEDURES 1. Left L4, L5 and S1 MB BLOCKS PHYSICIAN: Blake Ventura DO INDICATIONS Иван is referred by Dr. Stockton for treatment of Left Axial LBP. DESCRIPTION OF PROCEDURE Fluoroscopically guided, contrast-controlled left L4, L5 and S1 medial branch blocks with 0.5cc of 0.5% Marcaine. Following denial of allergy and review of potential side effects and complications, including, but not necessarily limited to, infection, allergic reaction, local tissue breakdown, nerve injury, paralysis, stroke and possible , the patient indicated that the patient understood and agreed to proceed. An informed consent document was signed by the patient, witnessed by a nurse, and placed in the patient's chart. After review of previous anaesthesic history and IV conscious sedation the patient was deemed safe to proceed with todays procedure with IV conscious sedation as ASA class II designation. Safety time-out was performed to confirm patient ID, procedure to be performed and site of procedure. IV sedation was accomplished with a combination of 4mg of Versed was administered by the RN after DO order, titrated to patient comfort during the course of the procedure while the patient remained responsive to all verbal commands. In the prone position, following sterile prep and drape of the lumbar region, the left L4, L5 and S1 anatomical location of the medial branch of the dorsal ramus was identified fluoroscopically. Subsequently an anesthetic skin wheal using 1% lidocaine solution was initiated at each of the anatomical spots. Subsequently then a 22-gauge 3.5-inch spinal needle was atraumatically introduced and advanced under fluoroscopic guidance at each of the corresponding sites at the left L4, L5 and S1 MB. After negative aspiration, 0.2 cc of Isovue 200 was injected, confirming placement without vascular or intrathecal uptake. Subsequently then 0.5 cc of 0.5% Marcaine solution was injected at each of the corresponding sites at the left L4, L5 and S1 medial branch locations. The patient tolerated the procedure well without signs or symptoms of complications. The patient tolerated the procedure well without signs or symptoms of complications prior to transfer to the recovery area continued monitoring without incident. Post-procedure, the patient was monitored initiating provocative activities to measure the amount of relief from block of the facetogenic pain. The patient reported a VAS of 7 prior to the procedure and a post-procedure VAS of 1. It has been a pleasure to assist in the diagnostic and therapeutic care of your patient. Total Fluoroscopy Time: 24.8 seconds Total Conscious Sedation Time: 24min POST OP INSTRUCTIONS The patient was provided with a Pain Log to complete over the next several hours and subsequent days prior to the patient's follow up with the ordering physician. If the patient has drafter engineering relief to the solution applied, then they may be a candidate for medial branch rhizotomy. The patient is aware, was provided, once again, with a Pain Log and will follow up with the referring physician for review and clinical correlation Blake Ventura DO Complications: none
[2017-11-15] MEDS: IOPAMIDOL 15 ML VIAL 3 ML INJ (09:58)
[2017-11-15] MEDS: BETAMETHASONE 30 MG/5 ML MDV 12 MG INJ (09:59)
[2017-11-15] MEDS: BUPIVACAINE 0.5% (PF) VIAL 30 ML INJ (09:59)
== END 2017-11-15 10:18 | disposition home or self-care (01) ==
LOC: RAD 08:35
PROVIDERS: Family Provider Family Medicine; PCP Family Medicine; Visit Provider Physical Medicine & Rehabilitation
DX: M47.817 Spondylosis without myelopathy or radiculopathy, lumbosacral region (principal); M47.816 Spondylosis without myelopathy or radiculopathy, lumbar region
CPT/HCPCS: 64493; 64494; 99152; J0702; J2250

== ENCOUNTER → 2018-05-15 12:00 | Outpatient (CLI) | payer MEDICARE, OTHER, SELFPAY ==
[2018-05-15 09:32] LABS: INR 2.4 (0.9-1.3); Prothrombin Time 28.1 SECONDS (10.1-12.7)
== END ==
PROVIDERS: PCP Family Medicine; Visit Provider Family Medicine
DX: Z79.01 Long term (current) use of anticoagulants (principal)
CPT/HCPCS: 85610

== ENCOUNTER 2018-06-05 07:30 | Outpatient (RCR) | payer MEDICARE, OTHER, SELFPAY ==
--- NOTE | 2018-05-10 15:01 | PT.OIE ---
Current Diagnoses Other cervical disc degeneration, unspecified cervical region (05/10/18) Past Medical History (Last Reviewed 12/09/17 @ 09:54 by Blake Ventura DO) CVA (cerebral vascular accident) (Acute) Myocardial infarction (Acute) Provider Visit Care Team Role Provider Type Sol Stockton MD Attending Provider Physician Primary Care Provider Specialty: Family Practice Address: [address] [place] [address], [facility] Email: Physical Therapy Initial Evaluation PT-OP-A Visit Information Start: 05/10/18 13:00 Freq: Status: Active Protocol: Document 05/10/18 13:01 BS (Rec: 05/10/18 13:03 BS [id number]) Out-Patient Physical Therapy Visit Information Visit Information Visit Type Initial Evaluation Visit Start Time 09:00 Visit Stop Time 09:45 Total Visit Minutes 45 Visit Number 1 Evaluation Information Evaluation Date 05/10/18 PT-OP-B Current Condition Start: 05/10/18 13:00 Freq: Status: Active Protocol: Document 05/10/18 13:01 BS (Rec: 05/10/18 13:44 BS [id number]) Current Condition History of Current Condition Onset Date 2 months ago Current Complaints Neck pain/discomfort History of Current Condition Pt is a 77 year old male who presents with complaints of neck pain/discomfort and stiffness. He reports that this began around 2 months ago , insidious onset, and that is it most noticeable when lying down on the sofa. He states that he is aware of his posture and attempts to keep his neck in a neutral position with use of a towel roll while lying down to watch television. Pt does not report difficulties with other ADLs and denies radicular symptoms into his extremities. Prior Treatments and Tests Pt has been to [facility] for LBP previously. Future Testing and Treatments Planned Cervical mobility exercises, postural strengthening, manual therapy for tight upper traps bilaterally, and cervical mobiliations to address hypombility. Treatment Goals Patient/Caregiver Goals To reduce neck pain Prior Functional Status Baseline Function- ADL's Independent Baseline Function- Mobility Independent Current Functional Impairments (Reported) Functional Limitations- ADL's Unable to lie down for prolonged periods of time due to neck pain/discomfort. Functional Limitations- Recreation/ reading, yard work Hobbies PT-OP-C Subjective Start: 05/10/18 13:00 Freq: Status: Active Protocol: Document 05/10/18 13:01 BS (Rec: 05/10/18 13:44 BS [id number]) OP-PT Subjective Patient Comments Patient Comments Pt states he has had success in the past with therapy for his low back so wanted to give it a try to reduce neck pain/ discomfort. Patient Reported Progress Improving Patient Questionnaires Neck Disability Index NDI Score 7 Neck Disability Index Impairment 1 to 19% Impaired (Score 1-9) OP-PT Pain Assessment Pain Assessment Grid Paper Pain Assessment Grid Completed Yes Location Neck Pain Location Details Pt reports it is not pinpoint, but just general aching along cervical spine Intensity 4 Scale Used Numeric (1 - 10) Description Aching Dull Frequency Occasional Radiating Location denies radiation of pain Variations/Patterns most noticeable after lying down on sofa Pain Aggravating Factors Position Pain Alleviating Factors Position Changing Position Patient Stated Pain Goal To get rid of neck pain Home Pain Medication Use Pain Medications Used No Comments Pain Comments Pt states its more of a discomfort than pain. PT-OP-F Manual Assessment Start: 05/10/18 13:00 Freq: Status: Active Protocol: Document 05/10/18 13:01 BS (Rec: 05/10/18 13:44 BS [id number]) Manual Assessments Soft Tissue Assessment Soft Tissue Mobility Assessment Hypertonicity and tightness of bilateral upper traps, levator, and cervical paraspinals. Joint Mobility Assessment Joint Mobility Assessment Hypomobility with central and unilateral PAs C2-C7. PT-OP-G Mobility & Gait Start: 05/10/18 13:00 Freq: Status: Active Protocol: Document 05/10/18 13:01 BS (Rec: 05/10/18 13:44 [id number]) OP Mobility Evaluation Bed Mobility Supine to and from Sit Independent Transfers Sit to Stand Independent no use of AD. Bed to Chair Transfers Independent no use of AD. OP Gait Assessment Gait Gait Assistance Required: Independent Able to Maintain Weight Bearing Status Yes During Gait Assistive Devices Assistive Device None Gait Deviations General Gait Pattern Decreased Stride Length Flexed Trunk PT-OP-J Posture/Palpation/Skin Start: 05/10/18 13:00 Freq: Status: Active Protocol: Document 05/10/18 13:01 BS (Rec: 05/10/18 13:44 BS [id number]) Posture Evaluation Position 1 Head/C-Spine Posture Forward Head T-Spine Posture Increased Kyphosis L-Spine Posture Decreased Lordosis Shoulder Posture (L) Rounded (R) Rounded Scapula Posture (L) Protracted Palpation Assessment Location One Palpation Location Bilateral upper trapezius and levator Palpation Findings Soft Tissue Tightness PT-OP-K Range of Motion Start: 05/10/18 13:00 Freq: Status: Active Protocol: Document 05/10/18 13:01 BS (Rec: 05/10/18 13:44 BS [id number]) Cervical Spine Range of Motion Cervical Spine Active Degrees Testing Position Sitting Flexion 45 Extension 40 Rotation Left 40 Rotation Right 42 Lateral Flexion Left 16 Lateral Flexion Right 15 ROM Limitations Soft Tissue Tightness Comments ROM most limited with bilateral sidebend, rotation, and flexion. Shoulder Goniometric Range of Motion Shoulder ROM Limitations Comments Gross shoulder AROM WFL and pain free. PT-OP-L Special Tests Start: 05/10/18 13:00 Freq: Status: Active Protocol: Document 05/10/18 13:01 BS (Rec: 05/10/18 13:44 [id number]) Special Tests Cervical Spine Special Tests Spurling's Test Test Results negative Traction Test Results negative PT-OP-M Strength Start: 05/10/18 13:00 Freq: Status: Active Protocol: Document 05/10/18 13:01 BS (Rec: 05/10/18 13:44 [id number]) Cervical Spine Strength Cervical Spine Manual Muscle Testing Testing Position Sitting Flexion (C1-2) 4+ Good+ Extension 4+ Good+ Rotation Left 4+ Good+ Rotation Right 4+ Good+ Lateral Flexion Left (C3) 4+ Good+ Lateral Flexion Right (C3) 4+ Good+ PT-OP-Q Treatments Start: 05/10/18 13:00 Freq: Status: Active Protocol: Document 05/10/18 13:01 BS (Rec: 05/10/18 13:44 BS [id number]) Therapeutic Exercises Sitting Exercises 2 Sitting Exercise Name Upper trapezius stretch Side bilateral Reps/Minutes 2x30 each Comments VCs to drop shoulder for increased stretch 1 Sitting Exercise Name Cervical AROM: SB/ROT Side bilateral Reps/Minutes x10 each way Manual Therapy Treatment Soft Tissue Mobilization 1 Body Location Bilateral upper trapezius Mobilization Type Myofascial Release Intensity/Depth Moderate Body Position Sitting Self-Care/Home Management Treatment Education Patient Education Home Exercise Program Posture PT-OP-T Assessment and Plan Start: 05/10/18 13:00 Freq: Status: Active Protocol: Document 05/10/18 13:01 BS (Rec: 05/10/18 13:44 BS [id number]) Physical Therapy Assessment Rehab Potential Rehabilitation Potential Good Evaluation Complexity Number of Personal Factors/Comorbidities 0 Number of Body Systems Impaired 1-2 Clinical Presentation at Evaluation Stable Impairments Impairments Functional Activities Functional Mobility Pain Posture ROM Soft Tissue Mobility Goals One Impairment HEP Short Term Goal (STG) Pt to become independent with HEP for cervical mobility and stretching of upper traps. STG Duration 3 2 Impairment ROM Short Term Goal (STG) Cervical AROM B rotation to improve to at least 70 degrees . STG Duration 4 Mcc Goal (LTG) Pt to be able to lie down on couch for at leat 2 hours without experiencing neck pain /discomfort. LTG Duration 8 1 Impairment Posture Short Term Goal (STG) Pt to become more aware of correct posture and positioning strategies to avoid aggravation of neck symptoms. STG Duration 4 Game Breeding Farm Manager Goal (LTG) Cervical AROM for bilateral sidebending to increase to at least 25 degrees. LTG Duration 8 Assessment Summary Assessment Pt presents with positional cervical discomfort/pain secondary to cervical hypomobility, decreased ROM, and postural deficits. Pt will benefit from skilled PT to address the above listed impairments to promote return to PLOF pain-free. Physical Therapy Plan Frequency and Duration Frequency of Treatment 1-2x/week Duration of Treatment 6-8 weeks Plan of Care Start Date 05/10/18 Plan of Care End Date 07/05/18 Therapeutic Interventions Therapeutic Interventions Home Exercise Program Joint Mobilizations Manual Therapy Patient/Caregiver Education Self-Care/Home Management Soft Tissue Mobilization Taping Therapeutic Activities Therapeutic Exercises Modalities Cold Pack/Ice Massage Electric Stimulation Hot Packs Next Visit Focus/Plan Next Note Type Treatment Note Next Visit Plan Cervical ROM, cervical mobilizations, STM to upper traps, postural strengthening.
--- NOTE | 2018-05-10 15:04 | PT.OPPOC ---
Current Diagnoses Other cervical disc degeneration, unspecified cervical region (05/10/18) Provider Visit Care Team Role Provider Type Sol Stockton MD Attending Provider Physician Primary Care Provider Specialty: Family Practice Address: [address] [place] [address], [facility] Email: Plan Of Care PT-OP-T Assessment and Plan Start: 05/10/18 13:00 Freq: Status: Active Protocol: Document 05/10/18 13:01 BS (Rec: 05/10/18 13:44 BS [id number]) Physical Therapy Assessment Rehab Potential Rehabilitation Potential Good Evaluation Complexity Number of Personal Factors/Comorbidities 0 Number of Body Systems Impaired 1-2 Clinical Presentation at Evaluation Stable Impairments Impairments Functional Activities Functional Mobility Pain Posture ROM Soft Tissue Mobility Goals One Impairment HEP Short Term Goal (STG) Pt to become independent with HEP for cervical mobility and stretching of upper traps. STG Duration 3 2 Impairment ROM Short Term Goal (STG) Cervical AROM B rotation to improve to at least 70 degrees . STG Duration 4 Senior Living Goal (LTG) Pt to be able to lie down on couch for at leat 2 hours without experiencing neck pain /discomfort. LTG Duration 8 1 Impairment Posture Short Term Goal (STG) Pt to become more aware of correct posture and positioning strategies to avoid aggravation of neck symptoms. STG Duration 4 Glass Blower Goal (LTG) Cervical AROM for bilateral sidebending to increase to at least 25 degrees. LTG Duration 8 Assessment Summary Assessment Pt presents with positional cervical discomfort/pain secondary to cervical hypomobility, decreased ROM, and postural deficits. Pt will benefit from skilled PT to address the above listed impairments to promote return to PLOF pain-free. Physical Therapy Plan Frequency and Duration Frequency of Treatment 1-2x/week Duration of Treatment 6-8 weeks Plan of Care Start Date 05/10/18 Plan of Care End Date 07/05/18 Therapeutic Interventions Therapeutic Interventions Home Exercise Program Joint Mobilizations Manual Therapy Patient/Caregiver Education Self-Care/Home Management Soft Tissue Mobilization Taping Therapeutic Activities Therapeutic Exercises Modalities Cold Pack/Ice Massage Electric Stimulation Hot Packs Next Visit Focus/Plan Next Note Type Treatment Note Next Visit Plan Cervical ROM, cervical mobilizations, STM to upper traps, postural strengthening. Plan of Care Dates Plan of Care Start Date 05/10/18 Plan of Care End Date 07/05/18 Please Sign and Return: I have reviewed this Plan of Care and certify that the skilled therapy services above are required to meet the patient?s needs. Physician Signature Date Printed Name and Credentials Clinical Instructor Signature Printed Name and Credentials
--- NOTE | 2018-05-15 15:28 | PT.OTN ---
Current Diagnoses Other cervical disc degeneration, unspecified cervical region (05/15/18) senior care (current) use of anticoagulants (05/15/18) Physical Therapy Treatment Note PT-OP-A Visit Information Start: 05/10/18 13:00 Freq: Status: Active Protocol: Document 05/15/18 07:40 BS (Rec: 05/15/18 07:44 BS [id number]) Out-Patient Physical Therapy Visit Information Visit Information Visit Type Treatment Note Visit Start Time 07:35 Visit Stop Time 08:15 Total Visit Minutes 40 Visit Number 2 PT-OP-B Current Condition Start: 05/10/18 13:00 Freq: Status: Active Protocol: Document 05/10/18 13:01 BS (Rec: 05/10/18 13:44 BS [id number]) Current Condition History of Current Condition Onset Date 2 months ago Current Complaints Neck pain/discomfort History of Current Condition Pt is a 77 year old male who presents with complaints of neck pain/discomfort and stiffness. He reports that this began around 2 months ago , insidious onset, and that is it most noticeable when lying down on the sofa. He states that he is aware of his posture and attempts to keep his neck in a neutral position with use of a towel roll while lying down to watch television. Pt does not report difficulties with other ADLs and denies radicular symptoms into his extremities. Prior Treatments and Tests Pt has been to [facility] therapy for LBP previously. Future Testing and Treatments Planned Cervical mobility exercises, postural strengthening, manual therapy for tight upper traps bilaterally, and cervical mobiliations to address hypombility. Treatment Goals Patient/Caregiver Goals To reduce neck pain Prior Functional Status Baseline Function- ADL's Independent Baseline Function- Mobility Independent Current Functional Impairments (Reported) Functional Limitations- ADL's Unable to lie down for prolonged periods of time due to neck pain/discomfort. Functional Limitations- Recreation/ reading, yard work Hobbies PT-OP-C Subjective Start: 05/10/18 13:00 Freq: Status: Active Protocol: Document 05/15/18 07:40 BS (Rec: 05/15/18 07:44 BS [id number]) OP-PT Subjective Patient Comments Patient Comments Pt states his neck pain is as usual and only bothering him when lying down on the couch. His R low back continues to hurt after traveling in car last week. Patient Reported Progress Same PT-OP-F Manual Assessment Start: 05/10/18 13:00 Freq: Status: Active Protocol: Document 05/10/18 13:01 BS (Rec: 05/10/18 13:44 BS [id number]) Manual Assessments Soft Tissue Assessment Soft Tissue Mobility Assessment Hypertonicity and tightness of bilateral upper traps, levator, and cervical paraspinals. Joint Mobility Assessment Joint Mobility Assessment Hypomobility with central and unilateral PAs C2-C7. PT-OP-G Mobility & Gait Start: 05/10/18 13:00 Freq: Status: Active Protocol: Document 05/10/18 13:01 BS (Rec: 05/10/18 13:44 BS [id number]) OP Mobility Evaluation Bed Mobility Supine to and from Sit Independent Transfers Sit to Stand Independent no use of AD. Bed to Chair Transfers Independent no use of AD. OP Gait Assessment Gait Gait Assistance Required: Independent Able to Maintain Weight Bearing Status Yes During Gait Assistive Devices Assistive Device None Gait Deviations General Gait Pattern Decreased Stride Length Flexed Trunk PT-OP-J Posture/Palpation/Skin Start: 05/10/18 13:00 Freq: Status: Active Protocol: Document 05/10/18 13:01 BS (Rec: 05/10/18 13:44 BS [id number]) Posture Evaluation Position 1 Head/C-Spine Posture Forward Head T-Spine Posture Increased Kyphosis L-Spine Posture Decreased Lordosis Shoulder Posture (L) Rounded (R) Rounded Scapula Posture (L) Protracted Palpation Assessment Location One Palpation Location Bilateral upper trapezius and levator Palpation Findings Soft Tissue Tightness PT-OP-K Range of Motion Start: 05/10/18 13:00 Freq: Status: Active Protocol: Document 05/10/18 13:01 BS (Rec: 05/10/18 13:44 BS [id number]) Cervical Spine Range of Motion Cervical Spine Active Degrees Testing Position Sitting Flexion 45 Extension 40 Rotation Left 40 Rotation Right 42 Lateral Flexion Left 16 Lateral Flexion Right 15 ROM Limitations Soft Tissue Tightness Comments ROM most limited with bilateral sidebend, rotation, and flexion. Shoulder Goniometric Range of Motion Shoulder ROM Limitations Comments Gross shoulder AROM WFL and pain free. PT-OP-L Special Tests Start: 05/10/18 13:00 Freq: Status: Active Protocol: Document 05/10/18 13:01 BS (Rec: 05/10/18 13:44 BS [id number]) Special Tests Cervical Spine Special Tests Spurling's Test Test Results negative Traction Test Results negative PT-OP-M Strength Start: 05/10/18 13:00 Freq: Status: Active Protocol: Document 05/10/18 13:01 BS (Rec: 05/10/18 13:44 BS [id number]) Cervical Spine Strength Cervical Spine Manual Muscle Testing Testing Position Sitting Flexion (C1-2) 4+ Good+ Extension 4+ Good+ Rotation Left 4+ Good+ Rotation Right 4+ Good+ Lateral Flexion Left (C3) 4+ Good+ Lateral Flexion Right (C3) 4+ Good+ PT-OP-Q Treatments Start: 05/10/18 13:00 Freq: Status: Active Protocol: Document 05/15/18 07:40 BS (Rec: 05/15/18 12:20 BS [id number]) Therapeutic Exercises Sitting Exercises 4 Sitting Exercise Name Scapular Retraction Side bilateral Reps/Minutes x15 Comments VCs for correct technique 3 Sitting Exercise Name Shoulder Rolls-Posterior Side bilateral Reps/Minutes x15 Comments VCs for correct technique 2 Sitting Exercise Name Upper trapezius stretch Side bilateral Reps/Minutes 2x30 each Comments VCs for correct technique 1 Sitting Exercise Name Cervical AROM: SB/ROT/Flex/Ext Side bilateral Reps/Minutes x10 each way Manual Therapy Treatment Soft Tissue Mobilization 2 Body Location Bilateral Suboccipitals Mobilization Type Myofascial Release Rolling Intensity/Depth Moderate Body Position Hooklying 1 Body Location Bilateral upper trapezius Mobilization Type Myofascial Release Intensity/Depth Moderate Body Position Supine Joint Mobilizations 1 Joint C2-C7 Direction Central and unilateral PAs Grade III Body Position Hooklying Comments Hypomobility throughout C spine with mobilizations. Followed by PROM into sidebend and rotation bilaterally Manual Traction Cervical Details Manual Cervical Traction Body Position Hooklying PT-OP-T Assessment and Plan Start: 05/10/18 13:00 Freq: Status: Active Protocol: Document 05/15/18 07:40 BS (Rec: 05/15/18 12:20 BS [id number]) Physical Therapy Assessment Assessment Summary Assessment Reviewed HEP with patient and with education and demonstration for correct technique with upper trapezius stretch. Manual therapy and cervical AROM with postural mm strengthening today. Physical Therapy Plan Frequency and Duration Frequency of Treatment 1-2x/week Duration of Treatment 6-8 weeks Plan of Care Start Date 05/10/18 Plan of Care End Date 07/05/18 Therapeutic Interventions Therapeutic Interventions Home Exercise Program Joint Mobilizations Manual Therapy Patient/Caregiver Education Self-Care/Home Management Soft Tissue Mobilization Taping Therapeutic Activities Therapeutic Exercises Modalities Cold Pack/Ice Massage Electric Stimulation Hot Packs Next Visit Focus/Plan Next Note Type Treatment Note Next Visit Plan Cervical ROM, mobilizations and manual therapy with progression toward more postural strengthening. Possibly trial mechanical traction.
--- NOTE | 2018-05-19 09:43 | PT.OTN ---
Current Diagnoses Other cervical disc degeneration, unspecified cervical region (05/19/18) Physical Therapy Treatment Note PT-OP-A Visit Information Start: 05/10/18 13:00 Freq: Status: Active Protocol: Document 05/19/18 07:30 AMB (Rec: 05/19/18 07:40 AMB [id number]) Out-Patient Physical Therapy Visit Information Visit Information Visit Start Time 07:35 Visit Stop Time 08:15 Total Visit Minutes 40 Visit Number 3 PT-OP-B Current Condition Start: 05/10/18 13:00 Freq: Status: Active Protocol: Document 05/10/18 13:01 BS (Rec: 05/10/18 13:44 BS [id number]) Current Condition History of Current Condition Onset Date 2 months ago Current Complaints Neck pain/discomfort History of Current Condition Pt is a 77 year old male who presents with complaints of neck pain/discomfort and stiffness. He reports that this began around 2 months ago , insidious onset, and that is it most noticeable when lying down on the sofa. He states that he is aware of his posture and attempts to keep his neck in a neutral position with use of a towel roll while lying down to watch television. Pt does not report difficulties with other ADLs and denies radicular symptoms into his extremities. Prior Treatments and Tests Pt has been to [facility] for [facility]BP previously. Future Testing and Treatments Planned Cervical mobility exercises, postural strengthening, manual therapy for tight upper traps bilaterally, and cervical mobiliations to address hypombility. Treatment Goals Patient/Caregiver Goals To reduce neck pain Prior Functional Status Baseline Function- ADL's Independent Baseline Function- Mobility Independent Current Functional Impairments (Reported) Functional Limitations- ADL's Unable to lie down for prolonged periods of time due to neck pain/discomfort. Functional Limitations- Recreation/ reading, yard work Hobbies PT-OP-C Subjective Start: 05/10/18 13:00 Freq: Status: Active Protocol: Document 05/19/18 07:30 AMB (Rec: 05/19/18 07:40 AMB [id number]) OP-PT Subjective Patient Comments Patient Comments Pt states he is continuing to have right sided low back pain that he will be seeing his PCP next week for. His neck has been ok, he has been arranging his house a bit moving and lifting things. PT-OP-F Manual Assessment Start: 05/10/18 13:00 Freq: Status: Active Protocol: Document 05/10/18 13:01 BS (Rec: 05/10/18 13:44 BS [id number]) Manual Assessments Soft Tissue Assessment Soft Tissue Mobility Assessment Hypertonicity and tightness of bilateral upper traps, levator, and cervical paraspinals. Joint Mobility Assessment Joint Mobility Assessment Hypomobility with central and unilateral PAs C2-C7. PT-OP-G Mobility & Gait Start: 05/10/18 13:00 Freq: Status: Active Protocol: Document 05/10/18 13:01 BS (Rec: 05/10/18 13:44 BS [id number]) OP Mobility Evaluation Bed Mobility Supine to and from Sit Independent Transfers Sit to Stand Independent no use of AD. Bed to Chair Transfers Independent no use of AD. OP Gait Assessment Gait Gait Assistance Required: Independent Able to Maintain Weight Bearing Status Yes During Gait Assistive Devices Assistive Device None Gait Deviations General Gait Pattern Decreased Stride Length Flexed Trunk PT-OP-J Posture/Palpation/Skin Start: 05/10/18 13:00 Freq: Status: Active Protocol: Document 05/10/18 13:01 BS (Rec: 05/10/18 13:44 BS [id number]) Posture Evaluation Position 1 Head/C-Spine Posture Forward Head T-Spine Posture Increased Kyphosis L-Spine Posture Decreased Lordosis Shoulder Posture (L) Rounded (R) Rounded Scapula Posture (L) Protracted Palpation Assessment Location One Palpation Location Bilateral upper trapezius and levator Palpation Findings Soft Tissue Tightness PT-OP-K Range of Motion Start: 05/10/18 13:00 Freq: Status: Active Protocol: Document 05/10/18 13:01 BS (Rec: 05/10/18 13:44 [id number]) Cervical Spine Range of Motion Cervical Spine Active Degrees Testing Position Sitting Flexion 45 Extension 40 Rotation Left 40 Rotation Right 42 Lateral Flexion Left 16 Lateral Flexion Right 15 ROM Limitations Soft Tissue Tightness Comments ROM most limited with bilateral sidebend, rotation, and flexion. Shoulder Goniometric Range of Motion Shoulder ROM Limitations Comments Gross shoulder AROM WFL and pain free. PT-OP-L Special Tests Start: 05/10/18 13:00 Freq: Status: Active Protocol: Document 05/10/18 13:01 BS (Rec: 05/10/18 13:44 BS [id number]) Special Tests Cervical Spine Special Tests Spurling's Test Test Results negative Traction Test Results negative PT-OP-M Strength Start: 05/10/18 13:00 Freq: Status: Active Protocol: Document 05/10/18 13:01 BS (Rec: 05/10/18 13:44 BS [id number]) Cervical Spine Strength Cervical Spine Manual Muscle Testing Testing Position Sitting Flexion (C1-2) 4+ Good+ Extension 4+ Good+ Rotation Left 4+ Good+ Rotation Right 4+ Good+ Lateral Flexion Left (C3) 4+ Good+ Lateral Flexion Right (C3) 4+ Good+ PT-OP-Q Treatments Start: 05/10/18 13:00 Freq: Status: Active Protocol: Document 05/19/18 07:30 AMB (Rec: 05/19/18 07:42 AMB [id number]) Therapeutic Exercises Sitting Exercises 3 Sitting Exercise Name Shoulder Rolls-Posterior Side bilateral Reps/Minutes x15 Comments VCs for correct technique 2 Sitting Exercise Name Upper trapezius stretch Side bilateral Reps/Minutes 2x30 each Comments VCs for correct technique 1 Sitting Exercise Name Cervical AROM: SB/ROT/Flex/Ext Side bilateral Reps/Minutes x10 each way Manual Therapy Treatment Soft Tissue Mobilization 1 Body Location Bilateral upper trapezius Mobilization Type Myofascial Release Intensity/Depth Moderate Body Position Supine Joint Mobilizations 1 Joint C2-C7 Direction Central and unilateral PAs Grade III Body Position Hooklying Comments Hypomobility throughout C spine with mobilizations. Followed by PROM into sidebend and rotation bilaterally Manual Traction Cervical Details Manual Cervical Traction Body Position Hooklying Manual Techniques 1 Type contract relax cervical rotation Comments supine PT-OP-T Assessment and Plan Start: 05/10/18 13:00 Freq: Status: Active Protocol: Document 05/19/18 07:30 AMB (Rec: 05/19/18 09:42 AMB [id number]) Physical Therapy Assessment Assessment Summary Assessment Pt continues to need cueing for correct form with HEP. Physical Therapy Plan Next Visit Focus/Plan Next Note Type Treatment Note Next Visit Plan Cervical ROM, mobilizations and manual therapy with progression toward more postural strengthening. Possibly trial mechanical traction.
--- NOTE | 2018-05-22 09:01 | PT.OTN ---
Current Diagnoses Other cervical disc degeneration, unspecified cervical region (05/22/18) Physical Therapy Treatment Note PT-OP-A Visit Information Start: 05/10/18 13:00 Freq: Status: Active Protocol: Document 05/22/18 07:30 AMB (Rec: 05/22/18 07:36 AMB [id number]) Out-Patient Physical Therapy Visit Information Visit Information Visit Type Treatment Note Visit Start Time 07:30 Visit Stop Time 08:10 Total Visit Minutes 40 Visit Number 4 PT-OP-B Current Condition Start: 05/10/18 13:00 Freq: Status: Active Protocol: Document 05/10/18 13:01 BS (Rec: 05/10/18 13:44 BS [id number]) Current Condition History of Current Condition Onset Date 2 months ago Current Complaints Neck pain/discomfort History of Current Condition Pt is a 77 year old male who presents with complaints of neck pain/discomfort and stiffness. He reports that this began around 2 months ago , insidious onset, and that is it most noticeable when lying down on the sofa. He states that he is aware of his posture and attempts to keep his neck in a neutral position with use of a towel roll while lying down to watch television. Pt does not report difficulties with other ADLs and denies radicular symptoms into his extremities. Prior Treatments and Tests Pt has been to [facility] for [facility]BP previously. Future Testing and Treatments Planned Cervical mobility exercises, postural strengthening, manual therapy for tight upper traps bilaterally, and cervical mobiliations to address hypombility. Treatment Goals Patient/Caregiver Goals To reduce neck pain Prior Functional Status Baseline Function- ADL's Independent Baseline Function- Mobility Independent Current Functional Impairments (Reported) Functional Limitations- ADL's Unable to lie down for prolonged periods of time due to neck pain/discomfort. Functional Limitations- Recreation/ reading, yard work Hobbies PT-OP-C Subjective Start: 05/10/18 13:00 Freq: Status: Active Protocol: Document 05/22/18 07:30 AMB (Rec: 05/22/18 07:36 AMB [id number]) OP-PT Subjective Patient Comments Patient Comments Pt reports neck is feeling good. Seeing MD tomorrow about low back. PT-OP-F Manual Assessment Start: 05/10/18 13:00 Freq: Status: Active Protocol: Document 05/10/18 13:01 BS (Rec: 05/10/18 13:44 BS [id number]) Manual Assessments Soft Tissue Assessment Soft Tissue Mobility Assessment Hypertonicity and tightness of bilateral upper traps, levator, and cervical paraspinals. Joint Mobility Assessment Joint Mobility Assessment Hypomobility with central and unilateral PAs C2-C7. PT-OP-G Mobility & Gait Start: 05/10/18 13:00 Freq: Status: Active Protocol: Document 05/10/18 13:01 BS (Rec: 05/10/18 13:44 BS [id number]) OP Mobility Evaluation Bed Mobility Supine to and from Sit Independent Transfers Sit to Stand Independent no use of AD. Bed to Chair Transfers Independent no use of AD. OP Gait Assessment Gait Gait Assistance Required: Independent Able to Maintain Weight Bearing Status Yes During Gait Assistive Devices Assistive Device None Gait Deviations General Gait Pattern Decreased Stride Length Flexed Trunk PT-OP-J Posture/Palpation/Skin Start: 05/10/18 13:00 Freq: Status: Active Protocol: Document 05/10/18 13:01 BS (Rec: 05/10/18 13:44 BS [id number]) Posture Evaluation Position 1 Head/C-Spine Posture Forward Head T-Spine Posture Increased Kyphosis L-Spine Posture Decreased Lordosis Shoulder Posture (L) Rounded (R) Rounded Scapula Posture (L) Protracted Palpation Assessment Location One Palpation Location Bilateral upper trapezius and levator Palpation Findings Soft Tissue Tightness PT-OP-K Range of Motion Start: 05/10/18 13:00 Freq: Status: Active Protocol: Document 05/10/18 13:01 BS (Rec: 05/10/18 13:44 [id number]) Cervical Spine Range of Motion Cervical Spine Active Degrees Testing Position Sitting Flexion 45 Extension 40 Rotation Left 40 Rotation Right 42 Lateral Flexion Left 16 Lateral Flexion Right 15 ROM Limitations Soft Tissue Tightness Comments ROM most limited with bilateral sidebend, rotation, and flexion. Shoulder Goniometric Range of Motion Shoulder ROM Limitations Comments Gross shoulder AROM WFL and pain free. PT-OP-L Special Tests Start: 05/10/18 13:00 Freq: Status: Active Protocol: Document 05/10/18 13:01 BS (Rec: 05/10/18 13:44 BS [id number]) Special Tests Cervical Spine Special Tests Spurling's Test Test Results negative Traction Test Results negative PT-OP-M Strength Start: 04/03/19 13:00 Freq: Status: Active Protocol: Document 05/10/18 13:01 BS (Rec: 05/10/18 13:44 BS [id number]) Cervical Spine Strength Cervical Spine Manual Muscle Testing Testing Position Sitting Flexion (C1-2) 4+ Good+ Extension 4+ Good+ Rotation Left 4+ Good+ Rotation Right 4+ Good+ Lateral Flexion Left (C3) 4+ Good+ Lateral Flexion Right (C3) 4+ Good+ PT-OP-Q Treatments Start: 05/10/18 13:00 Freq: Status: Active Protocol: Document 05/22/18 07:30 AMB (Rec: 05/22/18 07:40 AMB [id number]) Therapeutic Exercises Sitting Exercises 3 Sitting Exercise Name Shoulder Rolls-Posterior Side bilateral Reps/Minutes x15 Comments VCs for correct technique 2 Sitting Exercise Name Upper trapezius stretch Side bilateral Reps/Minutes 2x30 each Comments VCs for correct technique 1 Sitting Exercise Name Cervical AROM: SB/ROT/Flex/Ext Side bilateral Reps/Minutes x10 each way Manual Therapy Treatment Soft Tissue Mobilization 2 Body Location Bilateral Suboccipitals Mobilization Type Myofascial Release Rolling Intensity/Depth Moderate Body Position Hooklying 1 Body Location Bilateral upper trapezius Mobilization Type Myofascial Release Intensity/Depth Moderate Body Position Supine Joint Mobilizations 1 Joint C2-C7 Direction Central and unilateral PAs Grade III Body Position Hooklying Comments Hypomobility throughout C spine with mobilizations. Followed by PROM into sidebend and rotation bilaterally Manual Traction Cervical Details Manual Cervical Traction Body Position Hooklying PT-OP-T Assessment and Plan Start: 05/10/18 13:00 Freq: Status: Active Protocol: Document 05/22/18 07:30 AMB (Rec: 05/22/18 08:16 AMB [id number]) Physical Therapy Assessment Assessment Summary Assessment Иван reports his neck is feeling good, he does continue to have reduced left rotation , right rotation improving. Physical Therapy Plan Next Visit Focus/Plan Next Note Type Treatment Note Next Visit Plan Progress postural strengthening.
--- NOTE | 2018-05-25 08:15 | PT.OTN ---
Current Diagnoses Other cervical disc degeneration, unspecified cervical region (05/25/18) Physical Therapy Treatment Note PT-OP-A Visit Information Start: 05/10/18 13:00 Freq: Status: Active Protocol: Document 05/25/18 07:30 AMB (Rec: 05/25/18 07:39 AMB [id number]) Out-Patient Physical Therapy Visit Information Visit Information Visit Type Treatment Note Visit Start Time 07:30 Visit Stop Time 08:10 Total Visit Minutes 40 Visit Number 5 PT-OP-B Current Condition Start: 05/10/18 13:00 Freq: Status: Active Protocol: Document 05/10/18 13:01 BS (Rec: 05/10/18 13:44 BS [id number]) Current Condition History of Current Condition Onset Date 2 months ago Current Complaints Neck pain/discomfort History of Current Condition Pt is a 77 year old male who presents with complaints of neck pain/discomfort and stiffness. He reports that this began around 2 months ago , insidious onset, and that is it most noticeable when lying down on the sofa. He states that he is aware of his posture and attempts to keep his neck in a neutral position with use of a towel roll while lying down to watch television. Pt does not report difficulties with other ADLs and denies radicular symptoms into his extremities. Prior Treatments and Tests Pt has been to [facility] for [facility]BP previously. Future Testing and Treatments Planned Cervical mobility exercises, postural strengthening, manual therapy for tight upper traps bilaterally, and cervical mobiliations to address hypombility. Treatment Goals Patient/Caregiver Goals To reduce neck pain Prior Functional Status Baseline Function- ADL's Independent Baseline Function- Mobility Independent Current Functional Impairments (Reported) Functional Limitations- ADL's Unable to lie down for prolonged periods of time due to neck pain/discomfort. Functional Limitations- Recreation/ reading, yard work Hobbies PT-OP-C Subjective Start: 05/10/18 13:00 Freq: Status: Active Protocol: Document 05/25/18 07:30 AMB (Rec: 05/25/18 07:39 AMB [id number]) OP-PT Subjective Patient Comments Patient Comments Pt is going to wait out the back pain for now. My neck is doing well PT-OP-F Manual Assessment Start: 05/10/18 13:00 Freq: Status: Active Protocol: Document 05/10/18 13:01 BS (Rec: 05/10/18 13:44 BS [id number]) Manual Assessments Soft Tissue Assessment Soft Tissue Mobility Assessment Hypertonicity and tightness of bilateral upper traps, levator, and cervical paraspinals. Joint Mobility Assessment Joint Mobility Assessment Hypomobility with central and unilateral PAs C2-C7. PT-OP-G Mobility & Gait Start: 05/10/18 13:00 Freq: Status: Active Protocol: Document 05/10/18 13:01 BS (Rec: 05/10/18 13:44 BS [id number]) OP Mobility Evaluation Bed Mobility Supine to and from Sit Independent Transfers Sit to Stand Independent no use of AD. Bed to Chair Transfers Independent no use of AD. OP Gait Assessment Gait Gait Assistance Required: Independent Able to Maintain Weight Bearing Status Yes During Gait Assistive Devices Assistive Device None Gait Deviations General Gait Pattern Decreased Stride Length Flexed Trunk PT-OP-J Posture/Palpation/Skin Start: 05/10/18 13:00 Freq: Status: Active Protocol: Document 05/10/18 13:01 BS (Rec: 05/10/18 13:44 BS [id number]) Posture Evaluation Position 1 Head/C-Spine Posture Forward Head T-Spine Posture Increased Kyphosis L-Spine Posture Decreased Lordosis Shoulder Posture (L) Rounded (R) Rounded Scapula Posture (L) Protracted Palpation Assessment Location One Palpation Location Bilateral upper trapezius and levator Palpation Findings Soft Tissue Tightness PT-OP-K Range of Motion Start: 05/10/18 13:00 Freq: Status: Active Protocol: Document 05/10/18 13:01 BS (Rec: 05/10/18 13:44 BS [id number]) Cervical Spine Range of Motion Cervical Spine Active Degrees Testing Position Sitting Flexion 45 Extension 40 Rotation Left 40 Rotation Right 42 Lateral Flexion Left 16 Lateral Flexion Right 15 ROM Limitations Soft Tissue Tightness Comments ROM most limited with bilateral sidebend, rotation, and flexion. Shoulder Goniometric Range of Motion Shoulder ROM Limitations Comments Gross shoulder AROM WFL and pain free. PT-OP-L Special Tests Start: 05/10/18 13:00 Freq: Status: Active Protocol: Document 05/10/18 13:01 BS (Rec: 05/10/18 13:44 BS [id number]) Special Tests Cervical Spine Special Tests Spurling's Test Test Results negative Traction Test Results negative PT-OP-M Strength Start: 05/10/18 13:00 Freq: Status: Active Protocol: Document 05/10/18 13:01 BS (Rec: 05/10/18 13:44 BS [id number]) Cervical Spine Strength Cervical Spine Manual Muscle Testing Testing Position Sitting Flexion (C1-2) 4+ Good+ Extension 4+ Good+ Rotation Left 4+ Good+ Rotation Right 4+ Good+ Lateral Flexion Left (C3) 4+ Good+ Lateral Flexion Right (C3) 4+ Good+ PT-OP-Q Treatments Start: 05/10/18 13:00 Freq: Status: Active Protocol: Document 05/25/18 07:30 AMB (Rec: 05/25/18 07:39 AMB [id number]) Therapeutic Exercises Sitting Exercises 4 Sitting Exercise Name Scapular Retraction Side bilateral Reps/Minutes x15 Comments VCs for correct technique 3 Sitting Exercise Name Shoulder Rolls-Posterior Side bilateral Reps/Minutes x15 Comments VCs for correct technique 2 Sitting Exercise Name Upper trapezius stretch Side bilateral Reps/Minutes 2x30 each Comments VCs for correct technique 1 Sitting Exercise Name Cervical AROM: SB/ROT/Flex/Ext Side bilateral Reps/Minutes x10 each way Standing Exercises 1 Standing Exercise Name pec stretch Reps/Minutes 30x2 Comments corner Manual Therapy Treatment Soft Tissue Mobilization 2 Body Location Bilateral Suboccipitals Mobilization Type Myofascial Release Rolling Intensity/Depth Moderate Body Position Hooklying 1 Body Location Bilateral upper trapezius Mobilization Type Myofascial Release Intensity/Depth Moderate Body Position Supine Joint Mobilizations 1 Joint C2-C7 Direction Central and unilateral PAs Grade III Body Position Hooklying Comments Hypomobility throughout C spine with mobilizations. Followed by PROM into sidebend and rotation bilaterally Manual Traction Cervical Details Manual Cervical Traction Body Position Hooklying Manual Techniques 1 Type contract relax cervical rotation Comments supine PT-OP-R Modalities Start: 05/25/18 08:09 Freq: Status: Active Protocol: Document 05/25/18 07:30 AMB (Rec: 05/25/18 08:11 AMB [id number]) Spinal Traction Traction Treatment Cervical Method Static Patient Position Hooklying Force Applied (Pounds) 20 Duration of Treatment (Minutes) 5 Heating Pad Applied No PT-OP-T Assessment and Plan Start: 05/10/18 13:00 Freq: Status: Active Protocol: Document 05/25/18 07:30 AMB (Rec: 05/25/18 08:15 DERRICK [id number]) Physical Therapy Assessment Assessment Summary Assessment Иван's ROM is improving, pt tolerated short duration of traction well, could try to increase duration next visit. Physical Therapy Plan Next Visit Focus/Plan Next Note Type Treatment Note Next Visit Plan Continue to work on what Иван can do at home to progress his cervical movement.
--- NOTE | 2018-05-29 13:01 | PT.OTN ---
Current Diagnoses Other cervical disc degeneration, unspecified cervical region (05/29/18) Physical Therapy Treatment Note PT-OP-A Visit Information Start: 05/10/18 13:00 Freq: Status: Active Protocol: Document 05/29/18 08:20 BS (Rec: 05/29/18 08:13 BS [id number]) Out-Patient Physical Therapy Visit Information Visit Information Visit Type Treatment Note Visit Start Time 07:30 Visit Stop Time 08:15 Total Visit Minutes 45 Visit Number 7 PT-OP-B Current Condition Start: 05/10/18 13:00 Freq: Status: Active Protocol: Document 05/10/18 13:01 BS (Rec: 05/10/18 13:44 BS [id number]) Current Condition History of Current Condition Onset Date 2 months ago Current Complaints Neck pain/discomfort History of Current Condition Pt is a 77 year old male who presents with complaints of neck pain/discomfort and stiffness. He reports that this began around 2 months ago , insidious onset, and that is it most noticeable when lying down on the sofa. He states that he is aware of his posture and attempts to keep his neck in a neutral position with use of a towel roll while lying down to watch television. Pt does not report difficulties with other ADLs and denies radicular symptoms into his extremities. Prior Treatments and Tests Pt has been to [facility] therapy for LBP previously. Future Testing and Treatments Planned Cervical mobility exercises, postural strengthening, manual therapy for tight upper traps bilaterally, and cervical mobiliations to address hypombility. Treatment Goals Patient/Caregiver Goals To reduce neck pain Prior Functional Status Baseline Function- ADL's Independent Baseline Function- Mobility Independent Current Functional Impairments (Reported) Functional Limitations- ADL's Unable to lie down for prolonged periods of time due to neck pain/discomfort. Functional Limitations- Recreation/ reading, yard work Hobbies PT-OP-C Subjective Start: 05/10/18 13:00 Freq: Status: Active Protocol: Document 05/29/18 08:20 BS (Rec: 05/29/18 07:34 BS [id number]) OP-PT Subjective Patient Comments Patient Comments Pt reports the neck is feeling good and that he feels therapy is really helping. His back is still about the same. PT-OP-F Manual Assessment Start: 05/10/18 13:00 Freq: Status: Active Protocol: Document 05/10/18 13:01 BS (Rec: 05/10/18 13:44 BS [id number]) Manual Assessments Soft Tissue Assessment Soft Tissue Mobility Assessment Hypertonicity and tightness of bilateral upper traps, levator, and cervical paraspinals. Joint Mobility Assessment Joint Mobility Assessment Hypomobility with central and unilateral PAs C2-C7. PT-OP-G Mobility & Gait Start: 05/10/18 13:00 Freq: Status: Active Protocol: Document 05/10/18 13:01 BS (Rec: 05/10/18 13:44 BS [id number]) OP Mobility Evaluation Bed Mobility Supine to and from Sit Independent Transfers Sit to Stand Independent no use of AD. Bed to Chair Transfers Independent no use of AD. OP Gait Assessment Gait Gait Assistance Required: Independent Able to Maintain Weight Bearing Status Yes During Gait Assistive Devices Assistive Device None Gait Deviations General Gait Pattern Decreased Stride Length Flexed Trunk PT-OP-J Posture/Palpation/Skin Start: 05/10/18 13:00 Freq: Status: Active Protocol: Document 05/10/18 13:01 BS (Rec: 05/10/18 13:44 BS [id number]) Posture Evaluation Position 1 Head/C-Spine Posture Forward Head T-Spine Posture Increased Kyphosis L-Spine Posture Decreased Lordosis Shoulder Posture (L) Rounded (R) Rounded Scapula Posture (L) Protracted Palpation Assessment Location One Palpation Location Bilateral upper trapezius and levator Palpation Findings Soft Tissue Tightness PT-OP-K Range of Motion Start: 05/10/18 13:00 Freq: Status: Active Protocol: Document 05/10/18 13:01 BS (Rec: 05/10/18 13:44 [id number]) Cervical Spine Range of Motion Cervical Spine Active Degrees Testing Position Sitting Flexion 45 Extension 40 Rotation Left 40 Rotation Right 42 Lateral Flexion Left 16 Lateral Flexion Right 15 ROM Limitations Soft Tissue Tightness Comments ROM most limited with bilateral sidebend, rotation, and flexion. Shoulder Goniometric Range of Motion Shoulder ROM Limitations Comments Gross shoulder AROM WFL and pain free. PT-OP-L Special Tests Start: 05/10/18 13:00 Freq: Status: Active Protocol: Document 05/10/18 13:01 BS (Rec: 05/10/18 13:44 BS [id number]) Special Tests Cervical Spine Special Tests Spurling's Test Test Results negative Traction Test Results negative PT-OP-M Strength Start: 05/10/18 13:00 Freq: Status: Active Protocol: Document 05/10/18 13:01 BS (Rec: 05/10/18 13:44 BS [id number]) Cervical Spine Strength Cervical Spine Manual Muscle Testing Testing Position Sitting Flexion (C1-2) 4+ Good+ Extension 4+ Good+ Rotation Left 4+ Good+ Rotation Right 4+ Good+ Lateral Flexion Left (C3) 4+ Good+ Lateral Flexion Right (C3) 4+ Good+ PT-OP-Q Treatments Start: 05/10/18 13:00 Freq: Status: Active Protocol: Document 05/29/18 08:20 BS (Rec: 05/29/18 07:30 BS [id number]) Therapeutic Exercises Sitting Exercises 4 Sitting Exercise Name Scapular Retraction Side bilateral Reps/Minutes x15 Comments VCs for correct technique 3 Sitting Exercise Name Shoulder Rolls-Posterior Side bilateral Reps/Minutes x15 Comments VCs for correct technique 2 Sitting Exercise Name Upper trapezius stretch Side bilateral Reps/Minutes 2x30 each Comments VCs for correct technique 1 Sitting Exercise Name Cervical AROM: SB/ROT/Flex/Ext Side bilateral Reps/Minutes x10 each way Standing Exercises 1 Standing Exercise Name pec stretch Side bilateral Reps/Minutes 30x2 Comments at wall Manual Therapy Treatment Soft Tissue Mobilization 2 Body Location Bilateral Suboccipitals Mobilization Type Myofascial Release Rolling Intensity/Depth Moderate Body Position Hooklying 1 Body Location Bilateral upper trapezius Mobilization Type Myofascial Release Intensity/Depth Moderate Body Position Supine Joint Mobilizations 1 Joint C2-C7 Direction Central and unilateral PAs Grade III Body Position Hooklying Comments Hypomobility throughout C spine with mobilizations. Followed by PROM into sidebend and rotation bilaterally Manual Traction Cervical Details Manual Cervical Traction Body Position Hooklying PT-OP-R Modalities Start: 05/25/18 08:09 Freq: Status: Active Protocol: Document 05/29/18 08:20 BS (Rec: 05/29/18 08:21 BS [id number]) Spinal Traction Traction Treatment Cervical Method Static Patient Position Hooklying Force Applied (Pounds) 20 Duration of Treatment (Minutes) 5 Heating Pad Applied No Traction Treatment Comment 15-20lbs PT-OP-T Assessment and Plan Start: 05/10/18 13:00 Freq: Status: Active Protocol: Document 05/29/18 08:20 BS (Rec: 05/29/18 08:21 BS [id number]) Physical Therapy Assessment Assessment Summary Assessment Pt reports that he feels therapy is really helping with his neck, he admits he is not very compliant with HEP. He tolerated mechanical traction well today and continues to need some VCs for correct technique with most exercises. Physical Therapy Plan Next Visit Focus/Plan Next Note Type Treatment Note Next Visit Plan Progress postural strenthening as able. Continue with mechanical traction as long as pt continues to tolerate it and notices improvements.
--- NOTE | 2018-06-01 08:36 | PT.OTN ---
Current Diagnoses Other cervical disc degeneration, unspecified cervical region (06/01/18) Physical Therapy Treatment Note PT-OP-A Visit Information Start: 05/10/18 13:00 Freq: Status: Active Protocol: Document 06/01/18 08:16 BS (Rec: 06/01/18 07:43 BS [id number]) Out-Patient Physical Therapy Visit Information Visit Information Visit Type Treatment Note Visit Start Time 07:35 Visit Stop Time 08:15 Total Visit Minutes 40 Visit Number 8 PT-OP-B Current Condition Start: 05/10/18 13:00 Freq: Status: Active Protocol: Document 05/10/18 13:01 BS (Rec: 05/10/18 13:44 BS [id number]) Current Condition History of Current Condition Onset Date 2 months ago Current Complaints Neck pain/discomfort History of Current Condition Pt is a 77 year old male who presents with complaints of neck pain/discomfort and stiffness. He reports that this began around 2 months ago , insidious onset, and that is it most noticeable when lying down on the sofa. He states that he is aware of his posture and attempts to keep his neck in a neutral position with use of a towel roll while lying down to watch television. Pt does not report difficulties with other ADLs and denies radicular symptoms into his extremities. Prior Treatments and Tests Pt has been to [facility] for [facility]BP previously. Future Testing and Treatments Planned Cervical mobility exercises, postural strengthening, manual therapy for tight upper traps bilaterally, and cervical mobiliations to address hypombility. Treatment Goals Patient/Caregiver Goals To reduce neck pain Prior Functional Status Baseline Function- ADL's Independent Baseline Function- Mobility Independent Current Functional Impairments (Reported) Functional Limitations- ADL's Unable to lie down for prolonged periods of time due to neck pain/discomfort. Functional Limitations- Recreation/ reading, yard work Hobbies PT-OP-C Subjective Start: 05/10/18 13:00 Freq: Status: Active Protocol: Document 06/01/18 08:16 BS (Rec: 06/01/18 07:43 BS [id number]) OP-PT Subjective Patient Comments Patient Comments Pt states that his neck is feeling better than fair. PT-OP-F Manual Assessment Start: 05/10/18 13:00 Freq: Status: Active Protocol: Document 05/10/18 13:01 BS (Rec: 05/10/18 13:44 BS [id number]) Manual Assessments Soft Tissue Assessment Soft Tissue Mobility Assessment Hypertonicity and tightness of bilateral upper traps, levator, and cervical paraspinals. Joint Mobility Assessment Joint Mobility Assessment Hypomobility with central and unilateral PAs C2-C7. PT-OP-G Mobility & Gait Start: 05/10/18 13:00 Freq: Status: Active Protocol: Document 05/10/18 13:01 BS (Rec: 05/10/18 13:44 BS [id number]) OP Mobility Evaluation Bed Mobility Supine to and from Sit Independent Transfers Sit to Stand Independent no use of AD. Bed to Chair Transfers Independent no use of AD. OP Gait Assessment Gait Gait Assistance Required: Independent Able to Maintain Weight Bearing Status Yes During Gait Assistive Devices Assistive Device None Gait Deviations General Gait Pattern Decreased Stride Length Flexed Trunk PT-OP-J Posture/Palpation/Skin Start: 05/10/18 13:00 Freq: Status: Active Protocol: Document 05/10/18 13:01 BS (Rec: 05/10/18 13:44 [id number]) Posture Evaluation Position 1 Head/C-Spine Posture Forward Head T-Spine Posture Increased Kyphosis L-Spine Posture Decreased Lordosis Shoulder Posture (L) Rounded (R) Rounded Scapula Posture (L) Protracted Palpation Assessment Location One Palpation Location Bilateral upper trapezius and levator Palpation Findings Soft Tissue Tightness PT-OP-K Range of Motion Start: 05/10/18 13:00 Freq: Status: Active Protocol: Document 05/10/18 13:01 BS (Rec: 05/10/18 13:44 [id number]) Cervical Spine Range of Motion Cervical Spine Active Degrees Testing Position Sitting Flexion 45 Extension 40 Rotation Left 40 Rotation Right 42 Lateral Flexion Left 16 Lateral Flexion Right 15 ROM Limitations Soft Tissue Tightness Comments ROM most limited with bilateral sidebend, rotation, and flexion. Shoulder Goniometric Range of Motion Shoulder ROM Limitations Comments Gross shoulder AROM WFL and pain free. PT-OP-L Special Tests Start: 05/10/18 13:00 Freq: Status: Active Protocol: Document 05/10/18 13:01 BS (Rec: 05/10/18 13:44 [id number]) Special Tests Cervical Spine Special Tests Spurling's Test Test Results negative Traction Test Results negative PT-OP-M Strength Start: 05/10/18 13:00 Freq: Status: Active Protocol: Document 05/10/18 13:01 BS (Rec: 05/10/18 13:44 BS [id number]) Cervical Spine Strength Cervical Spine Manual Muscle Testing Testing Position Sitting Flexion (C1-2) 4+ Good+ Extension 4+ Good+ Rotation Left 4+ Good+ Rotation Right 4+ Good+ Lateral Flexion Left (C3) 4+ Good+ Lateral Flexion Right (C3) 4+ Good+ PT-OP-Q Treatments Start: 05/10/18 13:00 Freq: Status: Active Protocol: Document 06/01/18 08:16 BS (Rec: 06/01/18 07:43 BS [id number]) Therapeutic Exercises Sitting Exercises 4 Sitting Exercise Name Scapular Retraction Side bilateral Reps/Minutes x15 Comments VCs for correct technique 3 Sitting Exercise Name Shoulder Rolls-Posterior Side bilateral Reps/Minutes x15 Comments VCs for correct technique 2 Sitting Exercise Name Upper trapezius stretch Side bilateral Reps/Minutes 2x30 each Comments VCs for correct technique 1 Sitting Exercise Name Cervical AROM: SB/ROT/Flex/Ext Side bilateral Reps/Minutes x10 each way Standing Exercises 1 Standing Exercise Name pec stretch Side bilateral Reps/Minutes 30x2 Comments at wall Manual Therapy Treatment Soft Tissue Mobilization 2 Body Location Bilateral Suboccipitals Mobilization Type Myofascial Release Rolling Intensity/Depth Moderate Body Position Hooklying 1 Body Location Bilateral upper trapezius Mobilization Type Myofascial Release Intensity/Depth Moderate Body Position Supine Joint Mobilizations 1 Joint C2-C7 Direction Central and unilateral PAs Grade III Body Position Hooklying Comments Hypomobility throughout C spine with mobilizations. Followed by PROM into sidebend and rotation bilaterally PT-OP-R Modalities Start: 05/25/18 08:09 Freq: Status: Active Protocol: Document 06/01/18 08:16 BS (Rec: 06/01/18 07:43 BS [id number]) Spinal Traction Traction Treatment Cervical Method Static Patient Position Hooklying Force Applied (Pounds) 20 Duration of Treatment (Minutes) 5 Heating Pad Applied No Traction Treatment Comment 15-20lbs. PT-OP-T Assessment and Plan Start: 05/10/18 13:00 Freq: Status: Active Protocol: Document 06/01/18 08:16 BS (Rec: 06/01/18 07:43 BS [id number]) Physical Therapy Assessment Assessment Summary Assessment Pt subjectively reports that his neck is feeling a lot better. Plan to d/c patient next visit. Physical Therapy Plan Next Visit Focus/Plan Next Note Type Discharge Summary Next Visit Plan Assess goal progress and cervical AROM. Plan to d/c pt and review HEP.
--- NOTE | 2018-06-05 11:33 | PT.OTN ---
Current Diagnoses Other cervical disc degeneration, unspecified cervical region (06/05/18) Physical Therapy Treatment Note PT-OP-A Visit Information Start: 05/10/18 13:00 Freq: Status: Active Protocol: Document 06/05/18 08:15 BS (Rec: 06/05/18 07:29 BS [id number]) Out-Patient Physical Therapy Visit Information Visit Information Visit Type Discharge Summary Visit Start Time 07:30 Visit Stop Time 08:15 Total Visit Minutes 45 Visit Number 9 PT-OP-B Current Condition Start: 05/10/18 13:00 Freq: Status: Active Protocol: Document 05/10/18 13:01 BS (Rec: 05/10/18 13:44 BS [id number]) Current Condition History of Current Condition Onset Date 2 months ago Current Complaints Neck pain/discomfort History of Current Condition Pt is a 77 year old male who presents with complaints of neck pain/discomfort and stiffness. He reports that this began around 2 months ago , insidious onset, and that is it most noticeable when lying down on the sofa. He states that he is aware of his posture and attempts to keep his neck in a neutral position with use of a towel roll while lying down to watch television. Pt does not report difficulties with other ADLs and denies radicular symptoms into his extremities. Prior Treatments and Tests Pt has been to [facility] therapy for [facility]BP previously. Future Testing and Treatments Planned Cervical mobility exercises, postural strengthening, manual therapy for tight upper traps bilaterally, and cervical mobiliations to address hypombility. Treatment Goals Patient/Caregiver Goals To reduce neck pain Prior Functional Status Baseline Function- ADL's Independent Baseline Function- Mobility Independent Current Functional Impairments (Reported) Functional Limitations- ADL's Unable to lie down for prolonged periods of time due to neck pain/discomfort. Functional Limitations- Recreation/ reading, yard work Hobbies PT-OP-C Subjective Start: 05/10/18 13:00 Freq: Status: Active Protocol: Document 06/05/18 08:15 BS (Rec: 06/05/18 07:36 BS [id number]) OP-PT Subjective Patient Comments Patient Comments Pt to PT with no new complaints today. Patient Reported Progress Improving PT-OP-F Manual Assessment Start: 05/10/18 13:00 Freq: Status: Active Protocol: Document 05/10/18 13:01 BS (Rec: 05/10/18 13:44 BS [id number]) Manual Assessments Soft Tissue Assessment Soft Tissue Mobility Assessment Hypertonicity and tightness of bilateral upper traps, levator, and cervical paraspinals. Joint Mobility Assessment Joint Mobility Assessment Hypomobility with central and unilateral PAs C2-C7. PT-OP-G Mobility & Gait Start: 05/10/18 13:00 Freq: Status: Active Protocol: Document 05/10/18 13:01 BS (Rec: 05/10/18 13:44 BS [id number]) OP Mobility Evaluation Bed Mobility Supine to and from Sit Independent Transfers Sit to Stand Independent no use of AD. Bed to Chair Transfers Independent no use of AD. OP Gait Assessment Gait Gait Assistance Required: Independent Able to Maintain Weight Bearing Status Yes During Gait Assistive Devices Assistive Device None Gait Deviations General Gait Pattern Decreased Stride Length Flexed Trunk PT-OP-J Posture/Palpation/Skin Start: 05/10/18 13:00 Freq: Status: Active Protocol: Document 05/10/18 13:01 BS (Rec: 05/10/18 13:44 BS [id number]) Posture Evaluation Position 1 Head/C-Spine Posture Forward Head T-Spine Posture Increased Kyphosis L-Spine Posture Decreased Lordosis Shoulder Posture (L) Rounded (R) Rounded Scapula Posture (L) Protracted Palpation Assessment Location One Palpation Location Bilateral upper trapezius and levator Palpation Findings Soft Tissue Tightness PT-OP-K Range of Motion Start: 05/10/18 13:00 Freq: Status: Active Protocol: Document 06/05/18 08:15 BS (Rec: 06/05/18 09:57 BS [id number]) Cervical Spine Range of Motion Cervical Spine Active Degrees Testing Position Sitting Rotation Left 55 Rotation Right 60 Lateral Flexion Left 15 Lateral Flexion Right 35 Comments improvements in bilateral sidebending and rotation since IE. PT-OP-L Special Tests Start: 05/10/18 13:00 Freq: Status: Active Protocol: Document 05/10/18 13:01 BS (Rec: 05/10/18 13:44 BS [id number]) Special Tests Cervical Spine Special Tests Spurling's Test Test Results negative Traction Test Results negative PT-OP-M Strength Start: 05/10/18 13:00 Freq: Status: Active Protocol: Document 05/10/18 13:01 BS (Rec: 05/10/18 13:44 BS [id number]) Cervical Spine Strength Cervical Spine Manual Muscle Testing Testing Position Sitting Flexion (C1-2) 4+ Good+ Extension 4+ Good+ Rotation Left 4+ Good+ Rotation Right 4+ Good+ Lateral Flexion Left (C3) 4+ Good+ Lateral Flexion Right (C3) 4+ Good+ PT-OP-Q Treatments Start: 05/10/18 13:00 Freq: Status: Active Protocol: Document 06/05/18 08:15 BS (Rec: 06/05/18 07:29 BS [id number]) Therapeutic Exercises Sitting Exercises 4 Sitting Exercise Name Scapular Retraction Side bilateral Reps/Minutes x15 Comments VCs for correct technique 3 Sitting Exercise Name Shoulder Rolls-Posterior Side bilateral Reps/Minutes x15 Comments VCs for correct technique 2 Sitting Exercise Name Upper trapezius stretch Side bilateral Reps/Minutes 2x30 each Comments VCs for correct technique 1 Sitting Exercise Name Cervical AROM: SB/ROT/Flex/Ext Side bilateral Reps/Minutes x10 each way Standing Exercises 1 Standing Exercise Name pec stretch Side bilateral Reps/Minutes 30 x3 Comments at wall Manual Therapy Treatment Soft Tissue Mobilization 2 Body Location Bilateral Suboccipitals Mobilization Type Myofascial Release Rolling Intensity/Depth Moderate Body Position Hooklying 1 Body Location Bilateral upper trapezius Mobilization Type Myofascial Release Intensity/Depth Moderate Body Position Supine Joint Mobilizations 1 Joint C2-C7 Direction Central and unilateral PAs Grade III Body Position Hooklying Comments Hypomobility throughout C spine with mobilizations. Followed by PROM into sidebend and rotation bilaterally Manual Traction Cervical Details Manual Cervical Traction Body Position Hooklying PT-OP-R Modalities Start: 05/25/18 08:09 Freq: Status: Active Protocol: Document 06/05/18 08:15 BS (Rec: 06/05/18 07:29 BS [id number]) Spinal Traction Traction Treatment Cervical Method Static Patient Position Hooklying Force Applied (Pounds) 20 Duration of Treatment (Minutes) 5 Heating Pad Applied No Traction Treatment Comment 15-20lbs. PT-OP-T Assessment and Plan Start: 05/10/18 13:00 Freq: Status: Active Protocol: Document 06/05/18 08:15 BS (Rec: 06/05/18 07:26 BS [id number]) Physical Therapy Assessment Goals One Impairment HEP Short Term Goal (STG) Pt to become independent with HEP for cervical mobility and stretching of upper traps. STG Duration MET 2 Impairment ROM Short Term Goal (STG) Cervical AROM B rotation to improve to at least 70 deg. R Rot: 60 deg, L Rot: 55 deg STG Duration NOT MET Seat Cover Installer Goal (LTG) Pt to be able to lie down on couch for at leat 2 hours without experiencing neck pain /discomfort. LTG Duration MET 1 Impairment Posture Short Term Goal (STG) Pt to become more aware of correct posture and positioning strategies to avoid aggravation of neck symptoms. STG Duration MET Seat Cover Installer Goal (LTG) Cervical AROM for bilateral sidebending to increase to at least 25 degrees. 06/05/18 L SB:15 deg R SB:35 deg. LTG Duration NOT MET Assessment Summary Assessment Pt has made improvements with physical therapy and he is more aware of cervical posture and positioning strategies when laying on couch. His cervical AROM has improved bilaterally with sidebending and flexion. Pt denies neck pain and has been prescribed a HEP for continued cervical ROM and stretching. Pt has met most goals set upon IE and will be discharged at this time.
== END 2018-06-20 11:14 ==
LOC: PHYS 07:30
PROVIDERS: PCP Family Medicine; Visit Provider Family Medicine
DX: M50.30 Other cervical disc degeneration, unspecified cervical region (principal)
CPT/HCPCS: 85610; 97110; 97140; 97161

== ENCOUNTER → 2018-06-21 08:38 | Outpatient (ROUT) | payer MEDICARE, OTHER, SELFPAY ==
[2018-06-21 09:05] LABS: INR 2.1 (0.9-1.3); Prothrombin Time 24.7 SECONDS (10.1-12.7)
== END ==
PROVIDERS: PCP Family Medicine; Visit Provider Family Medicine
DX: Z79.01 Long term (current) use of anticoagulants (principal)
CPT/HCPCS: 85610

== ENCOUNTER → 2018-07-25 08:13 | Outpatient (ROUT) | payer MEDICARE, OTHER, SELFPAY ==
[2018-07-25 08:32] LABS: INR 2.6 (0.9-1.3); Prothrombin Time 30.6 SECONDS (10.1-12.7)
== END ==
PROVIDERS: PCP Family Medicine; Visit Provider Family Medicine
DX: Z79.01 Long term (current) use of anticoagulants (principal)
CPT/HCPCS: 85610

== ENCOUNTER → 2018-08-07 10:33 | Outpatient (CLI) | payer MEDICARE, OTHER, SELFPAY ==
--- NOTE | 2018-08-07 10:35 | DI.RAD.S_ITS ---
PROCEDURE: XR LUMBAR SPINE MIN 4V INDICATIONS: Lumbosacral spondylosis TECHNIQUE: 3 views of the lumbar spine were acquired. [facility] [place] [facility] LUMB [facility] 4VW, 12/25/2015, 11:35. FINDINGS: Bones: No fracture or focal osseous destruction. Multilevel degenerative endplate sclerosis and spurring. Diffuse facet arthropathy. Straightening of the normal lordotic curvature. Moderate narrowing of L5-S1 disc space. Mild narrowing of the lower thoracic, L2-L3, and L1-L2 disc spaces. Grade 1 retrolisthesis of L2 on L3, unchanged. Soft tissues: Overlying bowel gas pattern is normal. Scattered vascular calcifications seen in the aorta. No suspicious soft tissue calcifications. Oblique images: No pars defects. IMPRESSION: Multilevel spondylosis and facet arthropathy, grossly unchanged since 12/25/15. Dictated by: Darin Brambila M.D. on 08/07/2018 at 12:50 Approved by: Darin Brambila M.D. on 08/07/2018 at 12:52
== END ==
PROVIDERS: PCP Family Medicine; Visit Provider Physical Medicine & Rehabilitation
DX: M47.817 Spondylosis without myelopathy or radiculopathy, lumbosacral region (principal); M48.00 Spinal stenosis, site unspecified; I48.2 Chronic atrial fibrillation
CPT/HCPCS: 72110; 99214

== ENCOUNTER → 2018-08-23 09:26 | Outpatient (ROUT) | payer MEDICARE, OTHER, SELFPAY ==
[2018-08-23 09:40] LABS: Prothrombin Time 22.7 SECONDS (10.1-12.7)
== END ==
PROVIDERS: PCP Family Medicine; Visit Provider Family Medicine
DX: Z79.01 Long term (current) use of anticoagulants (principal)
CPT/HCPCS: 85610

== ENCOUNTER 2018-08-24 12:12 | Outpatient (CLI) | payer MEDICARE, OTHER, SELFPAY ==
[2018-08-24] VITALS (8 sets, daily range): BP systolic 122–157; BP diastolic 67–86; PULSE 54–66; RESP 16–20; TEMP 36.3; O2SAT 96–100
--- NOTE | 2018-08-24 12:13 | DI.RAD.S_ITS ---
PROCEDURE: PAIN L/SI FACET INJ/BLK 1STL INDICATIONS: Lumbosacral spondylosis FINDINGS: Fluoroscopic spot filming was performed to verify placement of spinal needles at the L4, L5, S1 level(s), as labeled on the films. Appropriate location(s) of the needle tip(s) was confirmed by injection of iodinated contrast. Dictated by: Darin Brambila M.D. on 08/24/2018 at 14:43 Approved by: Darin Brambila M.D. on 08/24/2018 at 14:43
[2018-08-24] MEDS: MIDAZOLAM 5 MG/5 ML VIAL IV (13:10)
[2018-08-24] MEDS: IOPAMIDOL 15 ML VIAL 3 ML INJ (13:14)
[2018-08-24] MEDS: BUPIVACAINE 0.5% (PF) VIAL 2 ML INJ (13:14)
[2018-08-24] MEDS: LIDOCAINE 1% 20 ML INJ 10 ML INJ (13:14)
[2018-08-24] MEDS: BETAMETHASONE 30 MG/5 ML MDV 12 MG INJ (13:15)
--- NOTE | 2018-08-24 13:18 | PC.NURSE ---
Pt tolerated procedure well. Able to get off table with standby assist. Transferred pt via wheelchair to pre procedure room for continued monitoring with Mati ARAUJO.
--- NOTE | 2018-08-24 13:22 | PM.PROC.1 ---
Procedures Date/Time Date of procedure: 08/24/18 Time of procedure: 13:22 General Procedure description: POST OP DIAGNOSIS 1. FACET ARTHROPATHY PROCEDURES 1. Right L4, L5 and S1 MB BLOCKS PHYSICIAN: Blake Ventura DO INDICATIONS Иван is referred by Dr. Stockton for treatment of Right Axial LBP. DESCRIPTION OF PROCEDURE Fluoroscopically guided, contrast-controlled right L4, L5 and S1 medial branch blocks with 0.5cc of 0.5% Marcaine. Following review of allergy and review of potential side effects and complications, including, but not necessarily limited to, infection, allergic reaction, local tissue breakdown, nerve injury, paralysis, stroke and possible , the patient indicated that the patient understood and agreed to proceed. An informed consent document was signed by the patient, witnessed by a nurse, and placed in the patient's chart. After review of previous anaesthesic history and IV conscious sedation the patient was deemed safe to proceed with todays procedure with IV conscious sedation as ASA class II designation. Safety time-out was performed to confirm patient ID, procedure to be performed and site of procedure. IV sedation was accomplished with a combination of 2mg of Versed was administered by the RN after DO order, titrated to patient comfort during the course of the procedure while the patient remained responsive to all verbal commands In the prone position, following sterile prep and drape of the lumbar region, the right L4, L5 and S1 anatomical location of the medial branch of the dorsal ramus was identified fluoroscopically. Subsequently an anesthetic skin wheal using 1% lidocaine solution was initiated at each of the anatomical spots. Subsequently then a 22-gauge 3.5-inch spinal needle was atraumatically introduced and advanced under fluoroscopic guidance at each of the corresponding sites at the right L4, L5 and S1 MB. After negative aspiration, 0.2 cc of Isovue 200 was injected, confirming placement without vascular or intrathecal uptake. Subsequently then 0.5 cc of 0.5% Marcaine solution was injected at each of the corresponding sites at the right L4, L5 and S1 medial branch locations. The patient tolerated the procedure well without signs or symptoms of complications. The procedure tolerated the procedure well without signs or symptoms of complications prior to transfer to the recovery area continued monitoring without incident. Post-procedure, the patient was monitored initiating provocative activities to measure the amount of relief from block of the facetogenic pain. The patient reported a VAS of 7 prior to the procedure and a post-procedure VAS of 1. It has been a pleasure to assist in the diagnostic and therapeutic care of your patient. Total Fluoroscopy Time: 24.8 seconds Total Conscious Sedation Time: 24min POST OP INSTRUCTIONS The patient was provided with a Pain Log to complete over the next several hours and subsequent days prior to the patient's follow up with the ordering physician. If the patient has radiology orderly relief to the solution applied, then they may be a candidate for medial branch rhizotomy. The patient is aware, was provided, once again, with a Pain Log and will follow up with the referring physician for review and clinical correlation Blake Ventura DO Complications: none
== END 2018-08-24 13:48 ==
LOC: RAD 12:12
PROVIDERS: PCP Family Medicine; Visit Provider Physical Medicine & Rehabilitation
DX: M47.817 Spondylosis without myelopathy or radiculopathy, lumbosacral region (principal); M47.816 Spondylosis without myelopathy or radiculopathy, lumbar region
CPT/HCPCS: 64493; 64494; 99152; J0702; J2250; J3010

== ENCOUNTER 2018-10-24 10:09 | Outpatient (CLI) | payer MEDICARE, OTHER, SELFPAY ==
[2018-10-24] VITALS (10 sets, daily range): BP systolic 118–152; BP diastolic 54–90; PULSE 51–60; RESP 16; TEMP 36.1; O2SAT 95–100
--- NOTE | 2018-10-24 10:10 | DI.RAD.S_ITS ---
PROCEDURE: PAIN L/S MED/LAT N RFA INDICATIONS: SPONDYLOSIS FINDINGS: Fluoroscopic spot filming was performed to verify placement of spinal needles at the right side L4, L5 and S1 medial branch level(s), as labeled on the films. Appropriate location(s) of the needle tip(s) was confirmed by injection of iodinated contrast. IMPRESSION: Successful needle tip localization for L4-S1 medial branch block procedure. Dictated by: Shay Arnold M.D. on 10/24/2018 at 13:46 Approved by: Shay Arnold M.D. on 10/24/2018 at 13:47
--- NOTE | 2018-10-24 11:24 | PC.NURSE ---
waiting for supplies.
--- NOTE | 2018-10-24 11:55 | P.PCN_ITS ---
Procedures Date/Time Date of procedure: 10/24/18 Time of procedure: 12:34 General Procedure description: PREOP DIAGNOSIS 1. RECALCITRANT FACET ARTHROPATHY, POST OP DIAGNOSIS 1. RECALCITRANT FACET ARTHROPATHY, PROCEDURES 1. RIGHT L4 AND L5 MEDIAL BRANCH RADIOFREQUENCY NEUROTOMY AND RIGHT S1 DORSAL RAMUS BRANCH RADIOFREQUENCY NEUROTOMY, SURGEON: Blake Ventura, DO INDICATIONS Иван is referred by Dr. Stockton for treatment of facet arthropathy. DESCRIPTION OF PROCEDURE Right L4 and L5 medial branch radiofrequency neurotomy and right S1 dorsal ramus branch radiofrequency neurotomy under fluoroscopy with conscious sedation. The patient is well known to this clinic having undergone previous facet injections with good but temporary relief. The patient has experienced appropriate, concordant relief with previous facet and median branch blocks but the patient's pain has been recalcitrant to further conservative measures. Therefore, based upon the patient's relief and persistent symptoms, the patient is considered an appropriate candidate for facet rhizotomy. All of the patient's questions regarding the risks versus benefits of the procedure, including, but not limited to, bleeding, infection, temporary as well as lasting nerve injury, paralysis, stroke, and , as well treatment alternatives were answered to satisfaction. After review of previous anaesthesic history and IV conscious sedation the patient was deemed safe to proceed with todays procedure with IV conscious sedation as ASA class II designation. Safety time-out was performed to confirm patient ID, procedure to be performed and site of procedure. IV sedation was accomplished with a combination of 2mg of Versed and 50mcg of Fentanyl was administered by the RN after DO order, titrated to patient comfort during the course of the procedure while the patient remained responsive to all verbal commands. After obtaining informed consent, denial of pertinent drug allergies, as well as being made aware of the potential risks of bleeding, infection, spinal cord trauma, paralysis, temporary and permanent nerve damage, seizure, stroke, and possible , the patient was brought to the fluoroscopy suite and positioned prone on the fluoroscopy table. The lumbar region was prepped with Betadine and covered with a fenestrated drape in the usual sterile fashion. Appropriate monitors applied including pulse oximeter, pulse, and blood pressure for regular monitoring throughout the procedure. After local infiltration using 1% lidocaine, under fluoroscopic guidance, a 10- cm RF insulated needle with a 10-mm active tip was positioned parallel to the junction of the right sacral ala and the superior articulating process where the S1 dorsal ramus resides. Needle placement was confirmed with sensory stimulation at 50 Hz, with motor stimulation of .5v on the right which produced local stimulation without radicular component. The stimulation was then increased to 1.5v with, once again, only local multifidus stimulation without radicular component. This was then followed by two discreet lesions performed at 80 degrees Celsius for 90 seconds each. The needle was then removed and the identical procedure was performed along the length of the right L5 medial branch with motor stimulation at .7v on the right. The identical procedure was once again performed along the length of the right L4 medial branch with motor stimulation of .5v on the right. The patient tolerated the procedure well without signs or symptoms of complications prior to transfer to the recovery area continued monitoring without incident. The patient was then transferred to the recovery area where they were observed for an appropriate period of time after the injection. The patient was then transferred to the recovery area where they were observed for an appropriate period of time after the injection. The patient reported a VAS score of 9 prior to the procedure and a post- procedure VAS of 0. Total Fluoroscopy Time: 31 seconds Total Conscious Sedation Time: 45min POST OP INSTRUCTIONS The patient was provided a Pain Log to continue to record the patient's response to the target-specific procedure prior to the patient's follow-up visit with the referring physician. Additionally, specific post-injection care instructions and a contact number to our office were provided if concerns arise regarding possible complications associated with the procedure are suspected. Blake Ventura DO Complications: none
[2018-10-24] MEDS: MIDAZOLAM 5 MG/5 ML VIAL IV (12:02)
[2018-10-24] MEDS: fentaNYL 100 MCG/2 ML INJ 50 MCG IV (12:06)
[2018-10-24] MEDS: BUPIVACAINE 0.5% (PF) VIAL 2 ML INJ (12:18)
[2018-10-24] MEDS: LIDOCAINE 1% 20 ML 10 ML INJ (12:18)
[2018-10-24] MEDS: BETAMETHASONE 30 MG/5 ML MDV 12 MG INJ (12:19)
--- NOTE | 2018-10-24 12:27 | PC.NURSE ---
ASSISTING PT OFF TABLE AND TRANSPORTING TO POST PROC AREA IN STABLE CONDITION. PASSING CARE OF PT ON TO FREDI Buchanan RN.
--- NOTE | 2018-10-24 12:38 | PC.NURSE ---
Post procedure nurses note: patient arrived to post procedure recovery via w/c. AA/O x 3 VSS, O2 sat WNL, no complaints of pain or numbness to lower extremities. tolerating PO without any nausea.
== END 2018-10-24 13:05 | disposition home or self-care (01) ==
LOC: RAD 10:10
PROVIDERS: PCP Family Medicine; Visit Provider Physical Medicine & Rehabilitation
DX: M47.817 Spondylosis without myelopathy or radiculopathy, lumbosacral region (principal); M47.816 Spondylosis without myelopathy or radiculopathy, lumbar region
CPT/HCPCS: 64635; 64636; 99152; J0702; J2250; J3010

== ENCOUNTER → 2018-12-25 09:23 | Outpatient (ROUT) | payer MEDICARE, OTHER, SELFPAY ==
[2018-12-25 09:43] LABS: INR 2.8 (0.9-1.3); Prothrombin Time 32.4 SECONDS (10.1-12.7)
== END ==
PROVIDERS: PCP Family Medicine; Visit Provider Family Medicine
DX: Z79.01 Long term (current) use of anticoagulants (principal)
CPT/HCPCS: 85610

== ENCOUNTER → 2019-01-23 10:20 | Outpatient (ROUT) | payer MEDICARE, OTHER, SELFPAY ==
[2019-01-23 11:11] LABS: INR 2.9 (0.9-1.3); Prothrombin Time 34.3 SECONDS (10.1-12.7)
== END ==
PROVIDERS: PCP Family Medicine; Visit Provider Family Medicine
DX: Z79.01 Long term (current) use of anticoagulants (principal)
CPT/HCPCS: 85610

== ENCOUNTER → 2019-02-26 10:27 | Outpatient (ROUT) | payer MEDICARE, OTHER, SELFPAY ==
[2019-02-26 10:33] LABS: INR 2.6 (0.9-1.3); Prothrombin Time 30.9 SECONDS (10.1-12.7)
== END ==
PROVIDERS: PCP Family Medicine; Visit Provider Family Medicine
DX: Z79.01 Long term (current) use of anticoagulants (principal)
CPT/HCPCS: 85610

== ENCOUNTER → 2019-03-28 10:54 | Outpatient (ROUT) | payer MEDICARE, OTHER, SELFPAY ==
[2019-03-28 11:02] LABS: Prothrombin Time 22.5 SECONDS (10.1-12.7)
== END ==
PROVIDERS: PCP Family Medicine; Visit Provider Family Medicine
DX: Z79.01 Long term (current) use of anticoagulants (principal)
CPT/HCPCS: 85610

== ENCOUNTER → 2019-05-10 09:37 | Outpatient (ROUT) | payer MEDICARE, OTHER, SELFPAY ==
[2019-05-10 09:43] LABS: INR 2.1 (0.9-1.3); Prothrombin Time 23.5 SECONDS (10.1-12.7)
== END ==
PROVIDERS: PCP Family Medicine; Visit Provider Family Medicine
DX: Z79.01 Long term (current) use of anticoagulants (principal)
CPT/HCPCS: 85610

== ENCOUNTER → 2019-06-19 10:07 | Outpatient (ROUT) | payer MEDICARE, OTHER, SELFPAY ==
[2019-06-19 10:25] LABS: INR 2.7 (0.9-1.3); Prothrombin Time 30.8 SECONDS (10.1-12.7)
== END ==
PROVIDERS: PCP Family Medicine; Visit Provider Family Medicine
DX: Z79.01 Long term (current) use of anticoagulants (principal)
CPT/HCPCS: 85610

== ENCOUNTER → 2019-06-19 11:25 | Outpatient (CLI) | payer MEDICARE, OTHER, SELFPAY ==
--- NOTE | 2019-06-19 | DI.RAD.S_ITS ---
PROCEDURE: XR CHEST 2V INDICATIONS: pneumonia, left foot/great toe pain TECHNIQUE: 2 views of the chest were acquired. COMPARISON: [facility], CR, XR CHEST 1 VIEW, 05/15/2019, 10:08. FINDINGS: Surgical changes and devices: None. Lungs and pleura: Lungs are clear except for what appears to be mild focal consolidation seen on the lateral view at the posterior lung bases, and on the frontal view likely at the right lower lung. No pleural effusions or pneumothorax. Mediastinum: Mediastinal contours are normal. Heart size is normal. Bones and chest wall: No suspicious bony abnormalities. Soft tissues appear unremarkable. IMPRESSION: Minimal pneumonia lower lungs seen on the lateral view, likely on the right from the frontal projection view. Followup 2 view chest is recommended to confirm resolution in several weeks. Dictated by: Shay Arnold M.D. on 06/19/2019 at 11:52 Approved by: Shay Arnold M.D. on 06/19/2019 at 11:53
--- NOTE | 2019-06-19 | DI.RAD.S_ITS ---
PROCEDURE: XR FOOT LT 2V INDICATIONS: pneumonia, left foot/great toe pain TECHNIQUE: 3 views of the foot were acquired. COMPARISON: [facility], CR, FOOT 3V LEFT, 10/20/2016, 10:20. FINDINGS: Bones: No fractures or dislocations. No suspicious bony lesions. Soft tissues: No tibiotalar joint effusion. Achilles tendon appears normal. Mild soft tissue swelling over the MTP joint at the first ray, no sign of osteomyelitis or joint effusion. No trauma seen. IMPRESSION: Degenerative osteoarthritic change, mild soft tissue swelling as discussed, no trauma found. Dictated by: Shay Arnold M.D. on 06/19/2019 at 12:20 Approved by: Shay Arnold M.D. on 06/19/2019 at 12:21
== END ==
PROVIDERS: PCP Family Medicine; Referring Provider Family Medicine; Visit Provider Family Medicine
DX: J18.9 Pneumonia, unspecified organism (principal); M79.676 Pain in unspecified toe(s); M79.89 Other specified soft tissue disorders; Z79.01 Long term (current) use of anticoagulants
CPT/HCPCS: 71046; 73630; 85610

== ENCOUNTER → 2019-06-22 12:26 | Outpatient (CLI) | payer MEDICARE, OTHER, SELFPAY ==
--- NOTE | 2019-06-22 12:44 | DI.CT.S_ITS ---
PROCEDURE: CT CHEST W CON INDICATIONS: pneumonia, unspec organism TECHNIQUE: After the administration of intravenous contrast, 5 mm thick sections acquired from the pulmonary apices to the posterior costophrenic angles. 1 mm axial lung, 5 mm thick coronal and sagittal reformats and 7 mm axial MIP were acquired. For radiation dose reduction, the following was used: automated exposure control, adjustment of mA and/or kV according to patient size. COMPARISON: [facility], CR, XR CHEST 2V, 06/19/2019, 11:26. FINDINGS: Image quality: Excellent. Lungs and pleura: No acute air space opacities. Note is made of a 6 x 8 mm sharply demarcated ovoid radiodensity within the deep medial left posterior costophrenic sulcus seen on series 3 image 292. A single additional pulmonary nodule is found at the medial segment right middle lobe measuring up to 7 x 9 mm. This is seen on series 4 image 43.. A single lateral right lower lobe nodule is found at the mid chest level, seen on series 4 image 41 and measuring 5 mm in diameter. Finally, mild alveolar infiltration is seen at the posterior right lower lobe,, which correlates with the area of prior plain film concern seen on the lateral view superimposed on the low thoracic spine anteriorly. No pleural effusions or pneumothorax. Central and peripheral airways are patent and normal in caliber. Mediastinum: Heart size is normal. No pericardial effusion. No mediastinal or hilar adenopathy by size criteria. Thoracic aorta and central pulmonary arteries are normal in size. Esophagus is normal in caliber. No hiatal hernia. Bones and chest wall: No suspicious bony lesions. No vertebral body compression fractures. No axillary or supraclavicular adenopathy by size criteria. Thyroid gland appears normal where well seen. Abdomen: Visualized upper abdominal solid organs appear normal. Upper abdominal bowel loops are normal in caliber. IMPRESSION: 3 separate pulmonary nodules are found, the largest of which is seen within the medial segment right middle lobe measuring up to 7 x 9 mm. Superimposed mild pneumonia seen at the medial right lung base. No definite malignancy. The [facility] ID criteria for followup of pulmonary nodules of this size warrants noncontrast CT scanning in 6 months. Dictated by: Shay Arnold M.D. on 06/22/2019 at 13:21 Approved by: Shay Arnold M.D. on 06/22/2019 at 13:29
== END ==
PROVIDERS: PCP Family Medicine; Referring Provider Family Medicine; Visit Provider Family Medicine
DX: J18.9 Pneumonia, unspecified organism (principal); R91.8 Other nonspecific abnormal finding of lung field
CPT/HCPCS: 71260; Q9967

== ENCOUNTER → 2019-08-02 09:12 | Outpatient (CLI) | payer MEDICARE, OTHER, SELFPAY ==
--- NOTE | 2019-08-02 | DI.RAD.S_ITS ---
PROCEDURE: XR CHEST 2V INDICATIONS: PNEUMONIA TECHNIQUE: 2 views of the chest were acquired. COMPARISON: [facility], CR, XR CHEST 1 VIEW, 05/15/2019, 10:08. [facility], CT, CT CHEST W CON, 06/22/2019, 12:38. [facility], CR, XR CHEST 2V, 06/19/2019, 11:26. FINDINGS: Surgical changes and devices: None. Lungs and pleura: Lungs are little if any change, with mild interstitial prominence and slight stranding of the lung base on lateral view imaging. No pleural effusions or pneumothorax. Mediastinum: Mediastinal contours are normal. Heart size is normal. Bones and chest wall: No suspicious bony abnormalities. Soft tissues appear unremarkable. IMPRESSION: The study is essentially unchanged from prior plain film imaging 06/19/19. Chronic mild interstitial prominence. This may represent lung scarring rather than evidence of mild pneumonia given stability over time. Please refer to prior CT scanning report from 06/22/[address]-identified small pulmonary nodules. Dictated by: Shay Arnold M.D. on 08/02/2019 at 10:03 Approved by: Shay Arnold M.D. on 08/02/2019 at 10:06
== END ==
PROVIDERS: PCP Family Medicine; Referring Provider Family Medicine; Visit Provider Family Medicine
DX: J18.9 Pneumonia, unspecified organism (principal); R91.8 Other nonspecific abnormal finding of lung field
CPT/HCPCS: 71046

== ENCOUNTER → 2019-09-17 12:10 | Outpatient (CLI) | payer MEDICARE, OTHER, SELFPAY ==
--- NOTE | 2019-09-17 12:12 | DI.RAD.S_ITS ---
PROCEDURE: XR LUMBAR SPINE MIN 4V INDICATIONS: LBP TECHNIQUE: 5 views of the lumbar spine were acquired. COMPARISON: [facility], CR, XR LUMBAR SPINE MIN 4V, 08/07/2018, 10:44. FINDINGS: Bones: 5 nonrib-bearing vertebrae are present. There is trace retrolisthesis of L2 on L3, L3 on L4. There is severe disc space narrowing at L5-S1, moderate at L1-L2, L2-3 and mild L3-4, L4-5. Severe foraminal narrowing is noted L4-5, L5-S1, moderate at L2-3, L3-4. Anterior osteophytes are present at multiple levels. Overall, mild interval progression of degenerative changes No vertebral body compression fractures. No suspicious bony lesions. Soft tissues: Overlying bowel gas pattern is normal. No suspicious soft tissue calcifications. Oblique images: No pars defects. IMPRESSION: Multilevel degenerative changes as above, progressive compared to 2019. Dictated by: Pema Garcia M.D. on 09/17/2019 at 14:28 Approved by: Pema Garcia M.D. on 09/17/2019 at 14:29
== END ==
PROVIDERS: PCP Family Medicine; Referring Provider Family Medicine; Visit Provider Physical Medicine & Rehabilitation
DX: M54.5 Low back pain (principal); M47.817 Spondylosis without myelopathy or radiculopathy, lumbosacral region; M48.061 Spinal stenosis, lumbar region without neurogenic claudication; M48.07 Spinal stenosis, lumbosacral region; I48.20 Chronic atrial fibrillation, unspecified; Z79.01 Long term (current) use of anticoagulants
CPT/HCPCS: 72110; 99214

== ENCOUNTER → 2019-09-20 11:38 | Outpatient (CLI) | payer MEDICARE, OTHER, SELFPAY ==
--- NOTE | 2019-09-20 11:40 | DI.MRI.S_ITS ---
PROCEDURE: MR LUMBAR SPINE WO CON INDICATIONS: chronic progressive LBP TECHNIQUE: Noncontrast sagittal T1 spin echo and T2 fast echo, sagittal STIR, axial T1 and T2 fast spin echo through the lumbar spine. In cases with scoliosis, additional coronal T2 fast spin echo may be performed. COMPARISON: [facility], CR, XR LUMBAR SPINE MIN 4V, 09/17/2019, 12:02. [facility], MR, L-SPINE WITHOUT CONTRAST, 01/02/2016, 9:47. FINDINGS: Image quality: Excellent. Alignment and Curvature: There is there is trace L2-L3 retrolisthesis. Bone Marrow: Marrow is of normal overall signal. No acute vertebral body compression fractures. Spinal Cord: Conus medullaris terminates at the L1-2 disc level. Visualized cord demonstrates normal signal and size. Paraspinous Soft Tissues: No paravertebral masses. Bilateral renal cysts noted.. L1-L2: Loss of disc signal and height. Mild to moderate diffuse disc bulge. Mild narrowing of the central canal. Mild bilateral neural foraminal narrowing. No neural compression. L2-L3: Loss of disc signal and height. Mild to moderate diffuse disc bulge. Mild narrowing of the central canal. Mild bilateral neural foraminal narrowing. No neural compression. L3-L4: Loss of disc space signal and slight loss of disc height. Mild to moderate diffuse disc bulge. Mild narrowing of the central canal. Mild bilateral neural foraminal narrowing. No neural compression. L4-L5: Loss of disc signal. Mild to moderate diffuse disc bulge. Mild narrowing of the central canal. Moderate right mild left neural foraminal narrowing. No neural compression. L5-S1: Loss of disc space signal and height. Mild, diffuse disc bulge. No central stenosis. Moderate right and mild left neural foraminal narrowing. No neural compression. IMPRESSION: 1. Multilevel degenerative disease. 2. Mild L1-L2, L2-L3, L3-L4 and L4-L5 central canal narrowing. 3. Moderate right and mild left L4-L5 and L5-S1 neural foraminal narrowing. Mild bilateral L1-L2, L2-L3 and L3-L4 neural foraminal narrowing. 4. No neural compression. Dictated by: Leydi Olson MD, PhD on 09/20/2019 at 14:58 Approved by: Leydi Olson MD, PhD on 09/20/2019 at 15:07
== END ==
PROVIDERS: PCP Family Medicine; Referring Provider Family Medicine; Visit Provider Physical Medicine & Rehabilitation
DX: M47.817 Spondylosis without myelopathy or radiculopathy, lumbosacral region (principal); M54.5 Low back pain; M51.36 Other intervertebral disc degeneration, lumbar region; M51.37 Other intervertebral disc degeneration, lumbosacral region; M48.061 Spinal stenosis, lumbar region without neurogenic claudication; M48.07 Spinal stenosis, lumbosacral region
CPT/HCPCS: 72148

== ENCOUNTER → 2019-10-13 13:45 | Outpatient (CLI) | payer MEDICARE, OTHER, SELFPAY ==
[2019-10-16 15:48] LABS: COVID19 Sendout Not Detected (Not Detect)
== END ==
PROVIDERS: PCP Family Medicine; Visit Provider Physician Assistant
DX: Z11.59 Encounter for screening for other viral diseases (principal)
CPT/HCPCS: 87635

== ENCOUNTER 2019-10-16 11:59 | Outpatient (CLI) | payer MEDICARE, OTHER, SELFPAY ==
[2019-10-16] VITALS (8 sets, daily range): BP systolic 115–146; BP diastolic 62–78; PULSE 57–67; RESP 14–21; TEMP 36.1; O2SAT 94–100
--- NOTE | 2019-10-16 12:00 | DI.RAD.S_ITS ---
PROCEDURE: PAIN L/SI FACET INJ/BLK 1STL INDICATIONS: SPONDYLOSIS COMPARISON: [facility], , PAIN L/SI FACET INJ/BLK 1STL, 08/24/2018, 13:15. FINDINGS: Fluoroscopic spot filming was performed to verify placement of spinal needles at the L3-L4, L4-L5, L5-S1 level(s), as labeled on the films. Appropriate location(s) of the needle tip(s) was confirmed by injection of iodinated contrast. Dictated by: Darin Brambila M.D. on 10/16/2019 at 15:01 Approved by: Darni Brambila M.D. on 10/16/2019 at 15:02
[2019-10-16 13:22] LABS: COVID19 -Nasal RAPID Negative (Negative)
[2019-10-16] MEDS: MIDAZOLAM 5 MG/5 ML VIAL IV (13:28)
[2019-10-16] MEDS: BETAMETHASONE 30 MG/5 ML MDV 12 MG INJ (13:30)
[2019-10-16] MEDS: LIDOCAINE 1% 20 ML 5 ML INJ (13:30)
[2019-10-16] MEDS: IOPAMIDOL 15 ML VIAL 3 ML INJ (13:35)
[2019-10-16] MEDS: BUPIVACAINE 0.5% (PF) VIAL 2 ML INJ (13:35)
--- NOTE | 2019-10-16 13:44 | P.PCN_ITS ---
Date/Time/Diagnoses Date of procedure: 10/16/19 Time of procedure: 13:44 Pre-procedure diagnosis: 1. FACET ARTHROPATHY, 2. AXIAL LBP, 3. MULTILEVEL DDD Post-procedure diagnosis: same Procedure Notes Procedure: 1. FLUOROSCOPICALLY GUIDED CONTRAST CONTROLLED FACET JOINT INJECTIONS RIGHT L3/4, L4/5, L5/S1 Indications: Иван is referred by for treatment of Axial LBP Physician: Blake Ventura Total Fluoroscopy time (seconds): 4 Total sedation minutes: 11 Complications: none Procedure in detail & Post-procedure care: FINDINGS Multilevel Facet Arthropathy with Clinically significant axial LBP DESCRIPTION OF PROCEDURE Fluoroscopically guided, contrast-controlled right L3/4, L4/5, L5/S1 facet joint injections. Following review of allergy and review of potential side effects and complications, including, but not necessarily limited to, infection, allergic reaction, local tissue breakdown, stroke, temporary or permanent nerve injury, paralysis, and possible , the patient indicated that the patient understood and agreed to proceed. An informed consent document was signed by the patient, witnessed by a nurse, and placed in the patient's chart. Additionally, other treatment options including medications, modalities, and physical therapy were reviewed with the patient. After review of previous anaesthesic history and IV conscious sedation the yolie ent was deemed safe to proceed with today?s procedure with IV conscious sedation as ASA class II designation. Safety time-out was performed to confirm patient ID, procedure to be performed and site of procedure. IV sedation was accomplished with a combination of 2mg of Versed was administered by the RN after DO order, titrated to patient comfort during the course of the procedure while the patient remained responsive to all verbal commands. In the prone position, following sterile prep and drape of the lumbar region, the posterior aspect of the right L3/4, L4/5, L5/S1 facet joints were identified fluoroscopically. The skin was anesthetized via a 25-gauge 1.5-inch needle with 1% lidocaine solution into the corresponding facet joints. At this point, a 22- gauge 3.5-inch spinal needle was atraumatically introduced and advanced under fluoroscopic guidance into the corresponding facet joints. Following negative aspiration, injections of approximately 0.2-cc of Isovue 200 confirmed int erarticular placement without vascular uptake. Radiological data, including multiple fluoroscopic views of the lumbosacral spine, reveal a spinal needle at the right L3/4, L4/5, L5/S1 facet joints. Subsequent views show flow of contrast material both superiorly and inferiorly within the joint space without vascular or intrathecal uptake. At this point, a total of 0.5cc including a mixture of 0.25cc Marcaine and 0.25cc betamethasone was injected without complication into each of the corresponding facet joints. The procedure tolerated the procedure well without signs or symptoms of com plications prior to transfer to the recovery area continued monitoring without incident. The patient was then transferred to the recovery area where they were observed for an appropriate period of time after the injection. The patient reported a VAS score of 7 prior to the procedure and a post-procedure VAS of 0. POST OP INSTRUCTIONS The patient was provided a Pain Log to continue to record their response to the target-specific procedure prior to follow-up visit with their referring physician. Additionally, specific post-injection care instructions and a contact number to our office were provided if concerns arise regarding possible complications associated with the procedure are suspected.
== END 2019-10-16 14:02 | disposition home or self-care (01) ==
LOC: RAD 12:00
PROVIDERS: PCP Family Medicine; Referring Provider Family Medicine; Visit Provider Physical Medicine & Rehabilitation
DX: M47.817 Spondylosis without myelopathy or radiculopathy, lumbosacral region (principal); M47.816 Spondylosis without myelopathy or radiculopathy, lumbar region; M54.5 Low back pain; M51.36 Other intervertebral disc degeneration, lumbar region; M51.37 Other intervertebral disc degeneration, lumbosacral region; Z11.59 Encounter for screening for other viral diseases
CPT/HCPCS: 64493; 64494; 64495; 87635; 99152; J0702; J2250; J3010

== ENCOUNTER → 2019-11-13 08:04 | Outpatient (ROUT) | payer MEDICARE, OTHER, SELFPAY ==
[2019-11-13 08:13] LABS: INR 1.9 (0.9-1.3); Prothrombin Time 22.4 SECONDS (10.1-12.7)
== END ==
PROVIDERS: PCP Family Medicine; Visit Provider Family Medicine
DX: Z79.01 Long term (current) use of anticoagulants (principal)
CPT/HCPCS: 85610

== ENCOUNTER → 2019-12-20 10:20 | Outpatient (ROUT) | payer MEDICARE, OTHER, SELFPAY ==
[2019-12-20 10:37] LABS: INR 2.1 (0.9-1.3); Prothrombin Time 24.6 SECONDS (10.1-12.7)
== END ==
PROVIDERS: PCP Family Medicine; Visit Provider Family Medicine
DX: I48.91 Unspecified atrial fibrillation (principal); Z79.01 Long term (current) use of anticoagulants
CPT/HCPCS: 85610

== ENCOUNTER → 2020-01-21 08:55 | Outpatient (ROUT) | payer MEDICARE, OTHER, SELFPAY ==
[2020-01-21 09:05] LABS: INR 2.1 (0.9-1.3); Prothrombin Time 24.2 SECONDS (10.1-12.7)
== END ==
PROVIDERS: PCP Family Medicine; Visit Provider Family Medicine
DX: Z79.01 Long term (current) use of anticoagulants (principal)
CPT/HCPCS: 85610

== ENCOUNTER → 2020-02-21 09:57 | Outpatient (ROUT) | payer MEDICARE, OTHER, SELFPAY ==
[2020-02-21 10:09] LABS: INR 2.2 (0.9-1.3)
== END ==
PROVIDERS: PCP Family Medicine; Visit Provider Family Medicine
DX: Z79.01 Long term (current) use of anticoagulants (principal)
CPT/HCPCS: 85610

== ENCOUNTER → 2020-03-24 09:56 | Outpatient (ROUT) | payer MEDICARE, OTHER, SELFPAY ==
[2020-03-24 10:15] LABS: INR 2.1 (0.9-1.3); Prothrombin Time 23.5 SECONDS (10.1-12.7)
== END ==
PROVIDERS: PCP Family Medicine; Visit Provider Family Medicine
DX: Z79.01 Long term (current) use of anticoagulants (principal)
CPT/HCPCS: 85610

== ENCOUNTER → 2020-04-23 09:12 | Outpatient (ROUT) | payer MEDICARE, OTHER, SELFPAY ==
[2020-04-23 09:28] LABS: INR 1.9 (0.9-1.3); Prothrombin Time 21.1 SECONDS (10.1-12.7)
== END ==
PROVIDERS: PCP Family Medicine; Visit Provider Family Medicine
DX: Z79.01 Long term (current) use of anticoagulants (principal)
CPT/HCPCS: 85610

== ENCOUNTER → 2020-05-08 10:23 | Outpatient (CLI) | payer MEDICARE, OTHER, SELFPAY ==
--- NOTE | 2020-05-08 | DI.RAD.S_ITS ---
PROCEDURE: XR ANKLE RT MIN 3V INDICATIONS: Pain in right ankle and joints of right foot TECHNIQUE: 3 views of the ankle were acquired. COMPARISON: None. FINDINGS: Bones: No fractures or dislocations. Ankle mortise is normally aligned. No suspicious bony lesions. Mild midfoot and tibiotalar joint osteoarthritis. Soft tissues: No tibiotalar joint effusion. Achilles tendon appears normal. Lower extremity atherosclerotic calcifications. IMPRESSION: No fracture. No acute osseous lesion. If symptoms and/or clinical suspicion for pathology persists, further assessment with repeat radiographs (7-10 days) or advanced imaging (e.g. CT, MRI or bone scan) should be considered. Dictated by: Leydi Olson MD, PhD on 05/08/2020 at 13:17 Approved by: Leydi Olson MD, PhD on 05/08/2020 at 13:18
== END ==
PROVIDERS: PCP Family Medicine; Referring Provider Nurse Practitioner Family; Visit Provider Nurse Practitioner Family
DX: M25.571 Pain in right ankle and joints of right foot (principal)
CPT/HCPCS: 73610

== ENCOUNTER → 2020-05-26 08:49 | Outpatient (ROUT) | payer MEDICARE, OTHER, SELFPAY ==
[2020-05-26 09:07] LABS: Prothrombin Time 45.8 SECONDS (10.1-12.7)
== END ==
PROVIDERS: PCP Family Medicine; Visit Provider Family Medicine
DX: Z79.01 Long term (current) use of anticoagulants (principal)
CPT/HCPCS: 85610

== ENCOUNTER → 2020-05-28 09:35 | Outpatient (ROUT) | payer MEDICARE, OTHER, SELFPAY ==
[2020-05-28 09:44] LABS: INR 2.4 (0.9-1.3)
== END ==
PROVIDERS: PCP Family Medicine; Visit Provider Family Medicine
DX: Z79.01 Long term (current) use of anticoagulants (principal)
CPT/HCPCS: 85610

== ENCOUNTER → 2020-06-04 09:16 | Outpatient (ROUT) | payer MEDICARE, OTHER, SELFPAY ==
[2020-06-04 09:36] LABS: INR 1.9 (0.9-1.3); Prothrombin Time 21.9 SECONDS (10.1-12.7)
== END ==
PROVIDERS: PCP Family Medicine; Visit Provider Family Medicine
DX: Z79.01 Long term (current) use of anticoagulants (principal)
CPT/HCPCS: 85610

== ENCOUNTER → 2020-06-13 09:16 | Outpatient (ROUT) | payer MEDICARE, OTHER, SELFPAY ==
[2020-06-13 09:22] LABS: Prothrombin Time 22.6 SECONDS (10.1-12.7)
== END ==
PROVIDERS: PCP Family Medicine; Visit Provider Family Medicine
DX: Z79.01 Long term (current) use of anticoagulants (principal)
CPT/HCPCS: 85610

== ENCOUNTER → 2020-06-25 08:50 | Outpatient (ROUT) | payer MEDICARE, OTHER, SELFPAY ==
[2020-06-25 09:41] LABS: INR 2.4 (0.9-1.3); Prothrombin Time 26.9 SECONDS (10.1-12.7)
== END ==
PROVIDERS: PCP Family Medicine; Visit Provider Family Medicine
DX: Z79.01 Long term (current) use of anticoagulants (principal)
CPT/HCPCS: 85610

== ENCOUNTER → 2020-07-14 09:36 | Outpatient (ROUT) | payer MEDICARE, OTHER, SELFPAY ==
[2020-07-14 09:50] LABS: INR 2.9 (0.9-1.3); Prothrombin Time 33.6 SECONDS (10.1-12.7)
== END ==
PROVIDERS: PCP Family Medicine; Visit Provider Family Medicine
DX: Z79.01 Long term (current) use of anticoagulants (principal)
CPT/HCPCS: 85610

== ENCOUNTER → 2020-07-28 09:22 | Outpatient (ROUT) | payer MEDICARE, OTHER, SELFPAY ==
[2020-07-28 09:27] LABS: INR 2.4 (0.9-1.3); Prothrombin Time 26.8 SECONDS (10.1-12.7)
== END ==
PROVIDERS: PCP Family Medicine; Visit Provider Family Medicine
DX: Z79.01 Long term (current) use of anticoagulants (principal)
CPT/HCPCS: 85610

== ENCOUNTER → 2020-08-13 10:17 | Outpatient (ROUT) | payer MEDICARE, OTHER, SELFPAY ==
[2020-08-13 11:02] LABS: INR 2.2 (0.9-1.3); Prothrombin Time 25.8 SECONDS (10.1-12.7)
== END ==
PROVIDERS: PCP Family Medicine; Visit Provider Family Medicine
DX: Z79.01 Long term (current) use of anticoagulants (principal)
CPT/HCPCS: 85610

== ENCOUNTER → 2020-08-27 09:49 | Outpatient (ROUT) | payer MEDICARE, OTHER, SELFPAY ==
[2020-08-27 10:02] LABS: INR 2.4 (0.9-1.3); Prothrombin Time 28.4 SECONDS (10.1-12.7)
== END ==
PROVIDERS: PCP Family Medicine; Visit Provider Family Medicine
DX: Z79.01 Long term (current) use of anticoagulants (principal)
CPT/HCPCS: 85610

== ENCOUNTER → 2020-09-29 10:10 | Outpatient (ROUT) | payer MEDICARE, OTHER, SELFPAY ==
[2020-09-29 10:35] LABS: INR 3.8 (0.9-1.3); Prothrombin Time 44.4 SECONDS (10.1-12.7)
== END ==
PROVIDERS: PCP Family Medicine; Visit Provider Family Medicine
DX: Z79.01 Long term (current) use of anticoagulants (principal)
CPT/HCPCS: 85610

== ENCOUNTER → 2020-09-29 12:23 | Outpatient (CLI) | payer MEDICARE, OTHER, SELFPAY ==
--- NOTE | 2020-09-29 | DI.RAD.S_ITS ---
PROCEDURE: XR HAND RT MIN 3V INDICATIONS: BILATERAL WRIST PAIN TECHNIQUE: 3 views of the hand(s) acquired. COMPARISON: [facility], CR, XR HAND LT MIN 3V, 09/29/2020, 12:36. FINDINGS: Bones: No fractures or dislocations. Osteoarthritic changes are noted throughout right hand and wrist joints more prominent at scaphoid trapezial joint. No definite bony erosion is seen. Subcortical cyst formation involving ulnar aspect of 4th proximal phalangeal head is seen. Carpal bones are normally aligned. No suspicious bony lesions. Soft tissues: No suspicious soft tissue calcifications. IMPRESSION: Mild to moderate osteoarthritic changes in right hand and wrist joints. No fracture or dislocation. No definite bony erosion. Likely subcortical cyst formation in ulnar aspect of 4th proximal phalangeal head. Dictated by: Jay Jung M.D. on 09/29/2020 at 13:49 Approved by: Jay Jung M.D. on 09/29/2020 at 13:49
--- NOTE | 2020-09-29 | DI.RAD.S_ITS ---
PROCEDURE: XR WRIST RT MIN 3V INDICATIONS: BILATERAL WRIST PAIN TECHNIQUE: 4 views of the wrist were acquired. COMPARISON: [facility], CR, XR WRIST LT MIN 3V, 09/29/2020, 12:36. FINDINGS: Bones: No fractures or dislocations. No suspicious bony lesions. Osteoarthritic changes along radial aspect of right wrist are seen more prominent at scaphoid trapezial joint. Scaphoid view: Scaphoid is intact. Soft tissues: Vascular calcifications are noted in right wrist soft tissue. IMPRESSION: Right wrist joint osteoarthritis. No acute fracture or dislocation. Osteoarthritis along radial aspect of right wrist as above. Dictated by: Jay Jung M.D. on 09/29/2020 at 14:35 Approved by: Jay Jung M.D. on 09/29/2020 at 14:36
--- NOTE | 2020-09-29 | DI.RAD.S_ITS ---
PROCEDURE: XR HAND LT MIN 3V INDICATIONS: BILATERAL WRIST PAIN TECHNIQUE: 3 views of the hand(s) acquired. COMPARISON: None. FINDINGS: Bones: No fractures or dislocations. Osteoarthritic changes are noted throughout wrist joints more prominent at scaphoid trapezial joint. Mild interphalangeal joint space narrowing is also seen. No gross bony erosive changes. Carpal bones are normally aligned. No suspicious bony lesions. Soft tissues: No suspicious soft tissue calcifications. IMPRESSION: Mild osteoarthritic changes are noted in left hand and wrist joints. No definite bony erosion is seen. No fracture or dislocation. Dictated by: Jay Jung M.D. on 09/29/2020 at 13:44 Approved by: Jay Jung M.D. on 09/29/2020 at 13:48
--- NOTE | 2020-09-29 | DI.RAD.S_ITS ---
PROCEDURE: XR WRIST LT MIN 3V INDICATIONS: Wrist pain TECHNIQUE: 4 views of the wrist were acquired. COMPARISON: None. FINDINGS: Bones: No fractures or dislocations. No suspicious bony lesions. Scaphoid view: Negative Soft tissues: No suspicious soft tissue calcifications. IMPRESSION: No acute fracture. No osseous lesion. If symptoms and/or clinical suspicion for pathology persist, further assessment with repeat, or advanced imaging (e.g., CT, MRI, or bone scan) may be helpful for further assessment. Dictated by: Tae Baxter M.D. on 09/29/2020 at 14:24 Approved by: Tae Baxter M.D. on 09/29/2020 at 14:25
== END ==
PROVIDERS: PCP Family Medicine; Referring Provider Family Medicine; Visit Provider Family Medicine
DX: M25.531 Pain in right wrist (principal); M25.532 Pain in left wrist; M19.031 Primary osteoarthritis, right wrist; Z79.01 Long term (current) use of anticoagulants
CPT/HCPCS: 73110; 73130; 85610

== ENCOUNTER → 2020-10-15 09:42 | Outpatient (ROUT) | payer MEDICARE, OTHER, SELFPAY ==
[2020-10-15 10:58] LABS: INR 3.1 (0.9-1.3); Prothrombin Time 35.5 SECONDS (10.1-12.7)
== END ==
PROVIDERS: PCP Family Medicine; Visit Provider Family Medicine
DX: Z79.01 Long term (current) use of anticoagulants (principal)
CPT/HCPCS: 85610

== ENCOUNTER → 2020-11-18 09:18 | Outpatient (ROUT) | payer MEDICARE, OTHER, SELFPAY ==
[2020-11-18 09:42] LABS: INR 3.5 (0.9-1.3); Prothrombin Time 40.3 SECONDS (10.1-12.7)
== END ==
PROVIDERS: PCP Family Medicine; Visit Provider Family Medicine
DX: Z79.01 Long term (current) use of anticoagulants (principal)
CPT/HCPCS: 85610

== ENCOUNTER → 2020-11-24 09:53 | Outpatient (ROUT) | payer MEDICARE, OTHER, SELFPAY ==
[2020-11-24 10:20] LABS: INR 1.9 (0.9-1.3); Prothrombin Time 21.2 SECONDS (10.1-12.7)
== END ==
PROVIDERS: PCP Family Medicine; Visit Provider Family Medicine
DX: Z79.01 Long term (current) use of anticoagulants (principal)
CPT/HCPCS: 85610

== ENCOUNTER → 2021-01-29 10:27 | Outpatient (ROUT) | payer MEDICARE, OTHER, SELFPAY ==
[2021-01-29 11:12] LABS: Prothrombin Time 47.3 SECONDS (10.1-12.7)
== END ==
PROVIDERS: PCP Family Medicine; Visit Provider Family Medicine
DX: I48.91 Unspecified atrial fibrillation (principal); Z79.01 Long term (current) use of anticoagulants
CPT/HCPCS: 85610

== ENCOUNTER → 2021-02-16 10:27 | Outpatient (ROUT) | payer MEDICARE, OTHER, SELFPAY ==
[2021-02-16 10:56] LABS: INR 5.6 (0.9-1.3)
== END ==
PROVIDERS: PCP Family Medicine; Visit Provider Family Medicine
DX: Z79.01 Long term (current) use of anticoagulants (principal)
CPT/HCPCS: 85610

== ENCOUNTER → 2021-02-19 09:40 | Outpatient (CLI) | payer MEDICARE, OTHER, SELFPAY ==
[2021-02-19 11:45] LABS: INR 3.2 (0.9-1.3); Prothrombin Time 36.7 SECONDS (10.1-12.7)
== END ==
PROVIDERS: PCP Family Medicine; Referring Provider Family Medicine; Visit Provider Family Medicine
DX: I48.91 Unspecified atrial fibrillation (principal)
CPT/HCPCS: 36415; 85610

== ENCOUNTER → 2021-03-02 10:44 | Outpatient (ROUT) | payer MEDICARE, OTHER, SELFPAY ==
[2021-03-02 11:19] LABS: INR 3.7 (0.9-1.3); Prothrombin Time 42.4 SECONDS (10.1-12.7)
== END ==
PROVIDERS: PCP Family Medicine; Visit Provider Family Medicine
DX: Z79.01 Long term (current) use of anticoagulants (principal)
CPT/HCPCS: 85610

== ENCOUNTER → 2021-03-09 10:48 | Outpatient (ROUT) | payer MEDICARE, OTHER, SELFPAY ==
[2021-03-09 11:12] LABS: INR 1.9 (0.9-1.3); Prothrombin Time 22.1 SECONDS (10.1-12.7)
== END ==
PROVIDERS: PCP Family Medicine; Visit Provider Family Medicine
DX: I48.91 Unspecified atrial fibrillation (principal); Z79.01 Long term (current) use of anticoagulants
CPT/HCPCS: 85610

== ENCOUNTER → 2021-03-16 11:58 | Outpatient (ROUT) | payer MEDICARE, OTHER, SELFPAY ==
[2021-03-16 12:17] LABS: INR 3.3 (0.9-1.3); Prothrombin Time 37.6 SECONDS (10.1-12.7)
== END ==
PROVIDERS: PCP Family Medicine; Visit Provider Family Medicine
DX: I48.91 Unspecified atrial fibrillation (principal); Z79.01 Long term (current) use of anticoagulants
CPT/HCPCS: 85610

== ENCOUNTER → 2021-03-23 10:58 | Outpatient (ROUT) | payer MEDICARE, OTHER, SELFPAY ==
[2021-03-23 11:11] LABS: INR 2.2 (0.9-1.3); Prothrombin Time 25.7 SECONDS (10.1-12.7)
== END ==
PROVIDERS: PCP Family Medicine; Visit Provider Family Medicine
DX: Z79.01 Long term (current) use of anticoagulants (principal)
CPT/HCPCS: 85610

== ENCOUNTER → 2021-04-06 09:49 | Outpatient (ROUT) | payer MEDICARE, OTHER, SELFPAY ==
[2021-04-06 10:04] LABS: Prothrombin Time 22.9 SECONDS (10.1-12.7)
== END ==
PROVIDERS: PCP Family Medicine; Visit Provider Family Medicine
DX: Z79.01 Long term (current) use of anticoagulants (principal)
CPT/HCPCS: 85610

== ENCOUNTER → 2021-05-08 09:27 | Outpatient (ROUT) | payer MEDICARE, OTHER, SELFPAY ==
[2021-05-08 09:39] LABS: INR 1.4 (0.9-1.3)
== END ==
PROVIDERS: PCP Family Medicine; Visit Provider Family Medicine
DX: Z79.01 Long term (current) use of anticoagulants (principal)
CPT/HCPCS: 85610

== ENCOUNTER → 2021-05-22 09:29 | Outpatient (ROUT) | payer MEDICARE, OTHER, SELFPAY ==
[2021-05-22 09:35] LABS: INR 1.6 (0.9-1.3); Prothrombin Time 17.4 SECONDS (10.1-12.7)
== END ==
PROVIDERS: PCP Family Medicine; Visit Provider Family Medicine
DX: Z79.01 Long term (current) use of anticoagulants (principal)
CPT/HCPCS: 85610

== ENCOUNTER → 2021-05-29 10:21 | Outpatient (ROUT) | payer MEDICARE, OTHER, SELFPAY ==
[2021-05-29 10:30] LABS: INR 1.6 (0.9-1.3); Prothrombin Time 18.8 SECONDS (10.1-12.7)
== END ==
PROVIDERS: PCP Family Medicine; Visit Provider Family Medicine
DX: Z79.01 Long term (current) use of anticoagulants (principal)
CPT/HCPCS: 85610

== ENCOUNTER → 2021-06-12 10:54 | Outpatient (ROUT) | payer MEDICARE, OTHER, SELFPAY ==
[2021-06-12 11:09] LABS: INR 2.4 (0.9-1.3); Prothrombin Time 27.7 SECONDS (10.1-12.7)
== END ==
PROVIDERS: PCP Family Medicine; Visit Provider Family Medicine
DX: Z79.01 Long term (current) use of anticoagulants (principal)
CPT/HCPCS: 85610

== ENCOUNTER → 2021-06-19 10:15 | Outpatient (ROUT) | payer MEDICARE, OTHER, SELFPAY ==
[2021-06-19 10:33] LABS: INR 1.8 (0.9-1.3); Prothrombin Time 20.2 SECONDS (10.1-12.7)
== END ==
PROVIDERS: PCP Family Medicine; Visit Provider Family Medicine
DX: Z79.01 Long term (current) use of anticoagulants (principal)
CPT/HCPCS: 85610

== ENCOUNTER → 2021-06-30 09:52 | Outpatient (ROUT) | payer MEDICARE, OTHER, SELFPAY ==
[2021-06-30 10:04] LABS: INR 1.5 (0.9-1.3); Prothrombin Time 16.9 SECONDS (10.1-12.7)
== END ==
PROVIDERS: PCP Family Medicine; Visit Provider Family Medicine
DX: I48.91 Unspecified atrial fibrillation (principal); Z79.01 Long term (current) use of anticoagulants
CPT/HCPCS: 85610

== ENCOUNTER → 2021-07-10 10:58 | Outpatient (ROUT) | payer MEDICARE, OTHER, SELFPAY ==
[2021-07-10 11:22] LABS: Prothrombin Time 22.6 SECONDS (10.1-12.7)
== END ==
PROVIDERS: PCP Family Medicine; Visit Provider Family Medicine
DX: Z79.01 Long term (current) use of anticoagulants (principal)
CPT/HCPCS: 85610

== ENCOUNTER → 2021-07-17 10:12 | Outpatient (ROUT) | payer MEDICARE, OTHER, SELFPAY ==
[2021-07-17 11:27] LABS: INR 2.3 (0.9-1.3)
== END ==
PROVIDERS: PCP Family Medicine; Visit Provider Family Medicine
DX: Z79.01 Long term (current) use of anticoagulants (principal)
CPT/HCPCS: 85610

== ENCOUNTER → 2021-07-24 09:07 | Outpatient (ROUT) | payer MEDICARE, OTHER, SELFPAY ==
[2021-07-24 10:04] LABS: INR 2.7 (0.9-1.3); Prothrombin Time 30.5 SECONDS (10.1-12.7)
== END ==
PROVIDERS: PCP Family Medicine; Visit Provider Family Medicine
DX: Z79.01 Long term (current) use of anticoagulants (principal)
CPT/HCPCS: 85610

== ENCOUNTER → 2021-07-31 11:22 | Outpatient (ROUT) | payer MEDICARE, OTHER, SELFPAY ==
[2021-07-31 12:21] LABS: INR 2.3 (0.9-1.3); Prothrombin Time 25.9 SECONDS (10.1-12.7)
== END ==
PROVIDERS: PCP Family Medicine; Visit Provider Family Medicine
DX: Z79.01 Long term (current) use of anticoagulants (principal)
CPT/HCPCS: 85610

== ENCOUNTER → 2021-08-14 10:20 | Outpatient (ROUT) | payer MEDICARE, OTHER, SELFPAY ==
[2021-08-14 10:39] LABS: INR 2.3 (0.9-1.3); Prothrombin Time 26.3 SECONDS (10.1-12.7)
== END ==
PROVIDERS: PCP Family Medicine; Visit Provider Family Medicine
DX: Z79.01 Long term (current) use of anticoagulants (principal)
CPT/HCPCS: 85610

== ENCOUNTER → 2021-09-14 08:45 | Outpatient (ROUT) | payer MEDICARE, OTHER, SELFPAY ==
[2021-09-14 09:08] LABS: INR 2.7 (0.9-1.3); Prothrombin Time 30.3 SECONDS (10.1-12.7)
== END ==
PROVIDERS: PCP Family Medicine; Visit Provider Family Medicine
DX: Z79.01 Long term (current) use of anticoagulants (principal)
CPT/HCPCS: 85610

== ENCOUNTER → 2021-10-15 14:06 | Outpatient (ROUT) | payer MEDICARE, OTHER, SELFPAY ==
[2021-10-15 14:23] LABS: INR 2.8 (0.9-1.3); Prothrombin Time 31.9 SECONDS (10.1-12.7)
== END ==
PROVIDERS: PCP Family Medicine; Visit Provider Family Medicine
DX: Z79.01 Long term (current) use of anticoagulants (principal)
CPT/HCPCS: 85610

== ENCOUNTER → 2021-11-16 09:08 | Outpatient (ROUT) | payer MEDICARE, OTHER, SELFPAY ==
[2021-11-16 09:23] LABS: INR 2.6 (0.9-1.3); Prothrombin Time 29.9 SECONDS (10.1-12.7)
== END ==
PROVIDERS: PCP Family Medicine; Visit Provider Family Medicine
DX: I48.91 Unspecified atrial fibrillation (principal); Z79.01 Long term (current) use of anticoagulants
CPT/HCPCS: 85610

== ENCOUNTER → 2021-12-15 12:26 | Outpatient (ROUT) | payer MEDICARE, OTHER, SELFPAY ==
[2021-12-15 12:45] LABS: INR 2.6 (0.9-1.3)
== END ==
PROVIDERS: PCP Family Medicine; Visit Provider Family Medicine
DX: I48.91 Unspecified atrial fibrillation (principal)
CPT/HCPCS: 85610

== ENCOUNTER → 2021-12-28 16:05 | Outpatient (ROUT) | payer MEDICARE, OTHER, SELFPAY ==
[2021-12-28 16:13] LABS: INR 2.8 (0.9-1.3); Prothrombin Time 32.9 SECONDS (10.1-12.7)
== END ==
PROVIDERS: PCP Family Medicine; Visit Provider Family Medicine
DX: Z79.01 Long term (current) use of anticoagulants (principal)
CPT/HCPCS: 85610

== ENCOUNTER → 2021-12-30 12:42 | Outpatient (CLI) | payer MEDICARE, OTHER, SELFPAY ==
--- NOTE | 2021-12-30 | DI.MRI.S_ITS ---
PROCEDURE: MR HEAD/BRAIN WO CON INDICATIONS: signs involving cognitive functions and awareness TECHNIQUE: Non-contrast axial T1 spin echo, axial T2 fast spin echo, sagittal and axial FLAIR, coronal T2 fast spin echo, axial gradient echo, axial diffusion and ADC through the brain. COMPARISON: [facility], CT, CT HEAD WITHOUT CONTRAST, 05/15/2019, 11:22. [facility], MR, STROKE PROTOCOL (PNL), 09/19/2013, 8:15. FINDINGS: Image quality: Excellent. CSF spaces: Ventricles appear symmetric in size and shape. Basal cisterns are patent. No extra-axial fluid collections. Brain: No intracranial mass effects. Numerous areas prior hemorrhage can be seen, which are worst involving the left parietal occipital region. However, additional areas of superficial hemorrhage can be seen involving both cerebral hemispheres anteriorly and posteriorly. There is cerebral volume loss for age. There are relatively prominent periventricular and deep white matter chronic small vessel ischemic changes. Brainstem appears normal. Diffusion-weighted images show no acute ischemic insults. Focal volume loss with encephalomalacia can be seen involving the right parietal occipital region. Normal intravascular flow voids are present. Skull and face: Calvarial bone marrow is normal in signal. Orbits are normal. Note is made of bilateral lens replacements. Sinuses: Sinuses and mastoids are clear. 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 IMPRESSION: Numerous areas of remote appearing hemorrhage can be seen, which are worst involving the left parietal occipital region. These are clearly worse compared to 2013. Please correlate with prior history, including superficial siderosis. Brain parenchymal volume loss and relatively prominent chronic small vessel ischemic change can be seen. 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 Remote right parietal occipital infarction. Dictated by: Aquiles Calvert M.D. on 12/30/2021 at 13:07 Approved by: Aquiles Calvert M.D. on 12/30/2021 at 13:12
== END ==
PROVIDERS: PCP Family Medicine; Referring Provider Family Medicine; Visit Provider Family Medicine
DX: R41.89 Other symptoms and signs involving cognitive functions and awareness (principal); I61.1 Nontraumatic intracerebral hemorrhage in hemisphere, cortical; G93.89 Other specified disorders of brain; J34.1 Cyst and mucocele of nose and nasal sinus; Z86.73 Personal history of transient ischemic attack (TIA), and cerebral infarction without residual deficits
CPT/HCPCS: 70551

== ENCOUNTER → 2022-01-08 18:41 | Outpatient (CLI) | payer MEDICARE, OTHER, SELFPAY ==
--- NOTE | 2022-01-08 18:44 | DI.MRI.S_ITS ---
PROCEDURE: MR STROKE Pre- and post-contrast brain MRI, non-contrast brain MR angiogram, pre- and postcontrast neck MR angiogram INDICATIONS: CEREBRAL INFARCTION TECHNIQUE: Brain: Noncontrast axial T1 spin echo, axial T2 fast spin echo, sagittal and axial FLAIR, coronal T2 fast spin echo, axial gradient echo, axial diffusion and ADC through the brain. After the administration of contrast, axial 3D VIBE of the cranial vasculature and brain. Brain MRA: Non-contrast 3-D time of flight MR angiogram, with multiple qyngjck-amgkkvbsg-otrvxfhsjn (MIP) reformats performed. Neck MRA: Axial and sagittal TruFISP through the neck. Coronal dynamic MR angiogram during administration of contrast in the arterial and venous phases, with 3-dimenstional yajpjjo-jzmcgbaqv-uvoqhoywfa (MIP) reformats constructed from subtraction images. COMPARISON: [facility], MR, MR HEAD/BRAIN WO CON, 12/30/2021, 12:53. FINDINGS: Image quality: Excellent. BRAIN: CSF spaces: Ventricles are normal in size and shape. Basal cisterns are patent. No extra-axial fluid collections. Brain: Previously seen curvilinear high T1 signal intensity within the left parietal lobe has decreased. Multiple curvilinear foci of low gradient echo signal intensity within the bilateral cerebral and cerebellar hemispheres, as before. There is moderate diffuse cerebral volume loss. There is a small chronic right occipital lobe infarct. There is a moderate degree of patchy high FLAIR signal within the periventricular and subcortical white matter. Pope-white matter interface is normal. Diffusion weighted images show no acute ischemic insults. Brainstem appears normal. Normal intravascular flow voids are present. No abnormal intracranial enhancement. Skull and face: Calvarial marrow signal is normal. Orbits appear normal. 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 Sinuses: Sinuses and mastoids are clear. BRAIN MR ANGIOGRAM: Anterior circulation: Intracranial internal carotid arteries are normal in size and enhancement. The flow within the paired anterior cerebral arteries is normal and symmetric. The flow within the middle cerebral arteries is normal and symmetric. The anterior communicating artery is seen. No stenoses, occlusions, or aneurysms. Posterior circulation: The visualized portions of the vertebral arteries demonstrate normal caliber, and join to form a normal appearing basilar artery. The flow within the posterior cerebral arteries is normal and symmetric. No stenoses, occlusions, or aneurysms. NECK MR ANGIOGRAM: Carotids: Great vessels demonstrate a conventional anatomy as they arise from the aortic arch. The origins of the common carotid arteries appear patent. The calibers and courses of both common carotid arteries are normal. The bifurcation regions appear normal bilaterally. The internal carotid arteries demonstrate normal course and caliber. Posterior circulation: The origins of the vertebral arteries appear patent. More superior portions of both vertebral arteries demonstrate normal course and caliber, and join to form a normal appearing basilar artery. Miscellaneous: Subclavian arteries appear patent. Pre-contrast images through the neck show no soft tissue abnormalities. IMPRESSION: BRAIN MRI: 1. No recent infarct. 2. Resolving subacute appearing left parietal subarachnoid hemorrhage. 3. No change in multiple bilateral chronic hemorrhagic foci within the cerebral and cerebellar hemispheres. 4. Volume loss and small vessel ischemic disease. 5. No change in small chronic right occipital lobe infarct. BRAIN MR ANGIOGRAM: Negative cerebral MR angiography. NECK MR ANGIOGRAM: 1. No internal carotid artery stenosis bilaterally. 2. Patent bilateral vertebral arteries. Dictated by: Tae Baxter M.D. on 1 year 03/14/2021 at 8:21 Approved by: Tae Baxter M.D. on 01/11/2022 at 8:26
== END ==
PROVIDERS: PCP Family Medicine; Referring Provider Family Medicine; Visit Provider Family Medicine
DX: I63.9 Cerebral infarction, unspecified (principal)
CPT/HCPCS: 70548; 70553; A9579

== ENCOUNTER → 2022-01-18 09:56 | Outpatient (ROUT) | payer MEDICARE, OTHER, SELFPAY ==
[2022-01-18 10:14] LABS: INR 2.5 (0.9-1.3); Prothrombin Time 29.1 SECONDS (10.1-12.7)
== END ==
PROVIDERS: PCP Family Medicine; Visit Provider Family Medicine
DX: Z79.01 Long term (current) use of anticoagulants (principal)
CPT/HCPCS: 85610

== ENCOUNTER → 2022-02-11 11:58 | Outpatient (CLI) | payer MEDICARE, OTHER, SELFPAY ==
--- NOTE | 2022-02-11 12:00 | DI.RAD.S_ITS ---
PROCEDURE: XR LUMBAR SPINE MIN 4V INDICATIONS: BACK PAIN TECHNIQUE: 5 views of the lumbar spine were acquired, including bilateral oblique views. COMPARISON: [facility], , XR LUMBAR SPINE MIN 4V, 09/17/2019, 12:02. FINDINGS: Bones: 5 nonrib-bearing vertebrae are present. There is stable bony alignment. No acute vertebral body compression fractures. No suspicious bony lesions. Multilevel lumbar spondylosis is again noted with degenerative endplate changes, disc space loss, and prominent endplate osteophyte formation. There is been mild progression at L5-S1, and at L2-3. Moderate mid and lower lumbar facet arthropathy. Degenerative changes noted in the thoracolumbar junction and imaged portions of the lower thoracic spine. Soft tissues: Overlying bowel gas pattern is normal. No suspicious soft tissue calcifications. Dense atherosclerotic calcifications noted in a tortuous abdominal aorta. Oblique images: No pars defects. IMPRESSION: Lumbar spine without acute fracture. Moderate multilevel lumbar spondylosis demonstrating mild progression compared to September 17, 2019 study. Dictated by: Solomon Bellamy M.D. on 02/11/2022 at 14:06 Approved by: Solomon Bellamy M.D. on 02/11/2022 at 14:08
== END ==
PROVIDERS: PCP Family Medicine; Referring Provider Physical Medicine & Rehabilitation; Visit Provider Physical Medicine & Rehabilitation
DX: M47.817 Spondylosis without myelopathy or radiculopathy, lumbosacral region (principal); M47.816 Spondylosis without myelopathy or radiculopathy, lumbar region; M47.815 Spondylosis without myelopathy or radiculopathy, thoracolumbar region; M48.00 Spinal stenosis, site unspecified; I70.0 Atherosclerosis of aorta
CPT/HCPCS: 72110

== ENCOUNTER → 2022-02-18 10:18 | Outpatient (ROUT) | payer MEDICARE, OTHER, SELFPAY ==
[2022-02-18 10:52] LABS: INR 2.3 (0.9-1.3)
== END ==
PROVIDERS: PCP Family Medicine; Visit Provider Family Medicine
DX: I48.91 Unspecified atrial fibrillation (principal); Z79.01 Long term (current) use of anticoagulants
CPT/HCPCS: 85610

== ENCOUNTER → 2022-02-25 11:54 | Outpatient (ROUT) | payer MEDICARE, OTHER, SELFPAY ==
[2022-02-25 12:03] LABS: Prothrombin Time 23.5 SECONDS (10.1-12.7)
== END ==
PROVIDERS: PCP Family Medicine; Visit Provider Family Medicine
DX: Z79.01 Long term (current) use of anticoagulants (principal)
CPT/HCPCS: 85610

== ENCOUNTER 2022-03-02 14:38 | Outpatient (CLI) | payer MEDICARE, OTHER, SELFPAY ==
[2022-03-02] VITALS (8 sets, daily range): BP systolic 104–146; BP diastolic 55–81; PULSE 58–68; RESP 16–22; TEMP 36.5; O2SAT 96–100
--- NOTE | 2022-03-02 14:42 | DI.RAD.S_ITS ---
PROCEDURE: PAIN L/SI FACET INJ/BLK 1STL INDICATIONS: SPONDYLOSIS COMPARISON: [facility], , PAIN L/SI FACET INJ/BLK 1STL, 10/16/2019, 13:34. FINDINGS: Fluoroscopic spot filming was performed to verify placement of spinal needles at the right L3-L4, L4-L5 and L5-S1 facets level(s), as labeled on the films. Appropriate location(s) of the needle tip(s) was confirmed by injection of iodinated contrast. IMPRESSION: Access needle tips in the right L3-L4, L4-L5 and L5-S1 facets for facet joint injection. Dictated by: Leydi Olson MD, PhD on 03/02/2022 at 16:09 Approved by: Leydi Olson MD, PhD on 03/02/2022 at 16:10
[2022-03-02] MEDS: MIDAZOLAM 2 MG/2 ML VIAL IV (15:35)
[2022-03-02] MEDS: BETAMETHASONE 30 MG/5 ML MDV 12 MG INJ (15:39)
[2022-03-02] MEDS: IOPAMIDOL 15 ML VIAL 3 ML INJ (15:39)
[2022-03-02] MEDS: BUPIVACAINE 0.5% MDV 5 ML SUBCUT (15:40)
--- NOTE | 2022-03-02 15:51 | P.PCN_ITS ---
Date/Time/Diagnoses Date of procedure: 03/02/22 Time of procedure: 15:51 Pre-procedure diagnosis: 1. FACET ARTHROPATHY, 2. AXIAL LBP, 3. MULTILEVEL DDD Post-procedure diagnosis: same Procedure Notes Procedure: 1. FLUOROSCOPICALLY GUIDED CONTRAST CONTROLLED FACET JOINT INJECTIONS RIGHT L3/4, L4/5, L5/S1 Indications: Иван is referred by Dr. Stockton for treatment of Axial LBP Physician: Blake Ventura Total Fluoroscopy time (seconds): 6 Total sedation minutes: 11 Complications: none Procedure in detail & Post-procedure care: FINDINGS Multilevel Facet Arthropathy with Clinically significant axial LBP DESCRIPTION OF PROCEDURE Fluoroscopically guided, contrast-controlled right L3/4, L4/5, L5/S1 facet joint injections. Following review of allergy and review of potential side effects and complications, including, but not necessarily limited to, infection, allergic reaction, local tissue breakdown, stroke, temporary or permanent nerve injury, paralysis, and possible , the patient indicated that the patient understood and agreed to proceed. An informed consent document was signed by the patient, witnessed by a nurse, and placed in the patient's chart. Additionally, other treatment options including medications, modalities, and physical therapy were reviewed with the patient. After review of previous anaesthesic history and IV conscious sedation the yolie ent was deemed safe to proceed with today?s procedure with IV conscious sedation as ASA class II designation. Safety time-out was performed to confirm patient ID, procedure to be performed and site of procedure. IV sedation was accomplished with a combination of 2mg of Versed was administered by the RN after DO order, titrated to patient comfort during the course of the procedure while the patient remained responsive to all verbal commands. In the prone position, following sterile prep and drape of the lumbar region, the posterior aspect of the right L3/4, L4/5, L5/S1 facet joints were identified fluoroscopically. The skin was anesthetized via a 25-gauge 1.5-inch needle with 1% lidocaine solution into the corresponding facet joints. At this point, a 22- gauge 3.5-inch spinal needle was atraumatically introduced and advanced under fluoroscopic guidance into the corresponding facet joints. Following negative aspiration, injections of approximately 0.2-cc of Isovue 200 confirmed int erarticular placement without vascular uptake. Radiological data, including multiple fluoroscopic views of the lumbosacral spine, reveal a spinal needle at the right L3/4, L4/5, L5/S1 facet joints. Subsequent views show flow of contrast material both superiorly and inferiorly within the joint space without vascular or intrathecal uptake. At this point, a total of 0.5 cc including a mixture of 0.25cc Marcaine and 0.25cc betamethasone was injected without complication into each of the corresponding facet joints. The procedure tolerated the procedure well without signs or symptoms of c omplications prior to transfer to the recovery area continued monitoring without incident. The patient was then transferred to the recovery area where they were observed for an appropriate period of time after the injection. The patient reported a VAS score of 7 prior to the procedure and a post-procedure VAS of 0. POST OP INSTRUCTIONS The patient was provided a Pain Log to continue to record their response to the target-specific procedure prior to follow-up visit with their referring physician. Additionally, specific post-injection care instructions and a contact number to our office were provided if concerns arise regarding possible complications associated with the procedure are suspected.
== END 2022-03-02 16:09 | disposition home or self-care (01) ==
PROVIDERS: PCP Family Medicine; Referring Provider Physical Medicine & Rehabilitation; Visit Provider Physical Medicine & Rehabilitation
DX: M47.817 Spondylosis without myelopathy or radiculopathy, lumbosacral region (principal); M47.816 Spondylosis without myelopathy or radiculopathy, lumbar region; M51.36 Other intervertebral disc degeneration, lumbar region; M51.37 Other intervertebral disc degeneration, lumbosacral region
CPT/HCPCS: 64493; 64494; 64495; 99152; J0702; J2250

== ENCOUNTER → 2022-03-23 10:30 | Outpatient (ROUT) | payer MEDICARE, OTHER, SELFPAY ==
[2022-03-23 10:37] LABS: INR 2.1 (0.9-1.3); Prothrombin Time 24.5 SECONDS (10.1-12.7)
== END ==
PROVIDERS: PCP Family Medicine; Visit Provider Family Medicine
DX: I48.91 Unspecified atrial fibrillation (principal); Z79.01 Long term (current) use of anticoagulants
CPT/HCPCS: 85610

== ENCOUNTER → 2022-04-20 09:05 | Outpatient (ROUT) | payer MEDICARE, OTHER, SELFPAY ==
[2022-04-20 09:22] LABS: INR 2.2 (0.9-1.3); Prothrombin Time 24.9 SECONDS (10.1-12.7)
== END ==
PROVIDERS: PCP Family Medicine; Visit Provider Family Medicine
DX: Z79.01 Long term (current) use of anticoagulants (principal)
CPT/HCPCS: 85610

== ENCOUNTER → 2022-05-21 08:56 | Outpatient (ROUT) | payer MEDICARE, OTHER, SELFPAY ==
[2022-05-21 09:03] LABS: INR 1.7 (0.9-1.3); Prothrombin Time 20.1 SECONDS (10.1-12.7)
== END ==
PROVIDERS: PCP Family Medicine; Visit Provider Family Medicine
DX: Z79.01 Long term (current) use of anticoagulants (principal)
CPT/HCPCS: 85610

== ENCOUNTER → 2022-05-26 10:47 | Outpatient (ROUT) | payer MEDICARE, OTHER, SELFPAY ==
[2022-05-26 10:55] LABS: INR 2.5 (0.9-1.3); Prothrombin Time 28.7 SECONDS (10.1-12.7)
== END ==
PROVIDERS: PCP Family Medicine; Visit Provider Family Medicine
DX: Z79.01 Long term (current) use of anticoagulants (principal)
CPT/HCPCS: 85610

== ENCOUNTER → 2022-06-02 09:57 | Outpatient (ROUT) | payer MEDICARE, OTHER, SELFPAY ==
[2022-06-02 10:07] LABS: INR 1.9 (0.9-1.3); Prothrombin Time 21.4 SECONDS (10.1-12.7)
== END ==
PROVIDERS: PCP Family Medicine; Visit Provider Family Medicine
DX: I48.91 Unspecified atrial fibrillation (principal); Z79.01 Long term (current) use of anticoagulants
CPT/HCPCS: 85610

== ENCOUNTER → 2022-06-16 08:58 | Outpatient (ROUT) | payer MEDICARE, OTHER, SELFPAY ==
[2022-06-16 09:05] LABS: INR 1.8 (0.9-1.3); Prothrombin Time 20.5 SECONDS (10.1-12.7)
== END ==
PROVIDERS: PCP Family Medicine; Visit Provider Family Medicine
DX: Z79.01 Long term (current) use of anticoagulants (principal)
CPT/HCPCS: 85610

== ENCOUNTER → 2022-07-08 09:58 | Outpatient (ROUT) | payer MEDICARE, OTHER, SELFPAY ==
[2022-07-08 10:18] LABS: INR 3.3 (0.9-1.3); Prothrombin Time 38.7 SECONDS (10.1-12.7)
== END ==
PROVIDERS: PCP Family Medicine; Visit Provider Family Medicine
DX: Z79.01 Long term (current) use of anticoagulants (principal)
CPT/HCPCS: 85610

== ENCOUNTER → 2022-07-15 09:28 | Outpatient (ROUT) | payer MEDICARE, OTHER, SELFPAY ==
[2022-07-15 09:38] LABS: INR 2.7 (0.9-1.3); Prothrombin Time 31.6 SECONDS (10.1-12.7)
== END ==
PROVIDERS: PCP Family Medicine; Visit Provider Family Medicine
DX: Z79.01 Long term (current) use of anticoagulants (principal)
CPT/HCPCS: 85610

== ENCOUNTER → 2022-08-19 09:56 | Outpatient (ROUT) | payer MEDICARE, OTHER, SELFPAY ==
[2022-08-19 10:22] LABS: INR 2.1 (0.9-1.3); Prothrombin Time 24.8 SECONDS (10.1-12.7)
== END ==
PROVIDERS: PCP Family Medicine; Visit Provider Family Medicine
DX: Z79.01 Long term (current) use of anticoagulants (principal)
CPT/HCPCS: 85610

== ENCOUNTER → 2022-09-23 09:29 | Outpatient (ROUT) | payer MEDICARE, OTHER, SELFPAY ==
[2022-09-23 09:59] LABS: INR 2.8 (0.9-1.3); Prothrombin Time 32.2 SECONDS (10.1-12.7)
== END ==
PROVIDERS: PCP Family Medicine; Visit Provider Family Medicine
DX: Z79.01 Long term (current) use of anticoagulants (principal)
CPT/HCPCS: 85610

== ENCOUNTER → 2022-10-27 08:35 | Outpatient (ROUT) | payer MEDICARE, OTHER, SELFPAY ==
[2022-10-27 09:06] LABS: INR 4.4 (0.9-1.3); Prothrombin Time 51.6 SECONDS (10.1-12.7)
== END ==
PROVIDERS: PCP Family Medicine; Visit Provider Family Medicine
DX: Z79.01 Long term (current) use of anticoagulants (principal); I48.91 Unspecified atrial fibrillation
CPT/HCPCS: 85610

== ENCOUNTER → 2022-10-28 10:11 | Outpatient (ROUT) | payer MEDICARE, OTHER, SELFPAY ==
[2022-10-28 10:33] LABS: INR 3.9 (0.9-1.3); Prothrombin Time 45.1 SECONDS (10.1-12.7)
[2022-11-04 08:51] LABS: INR 1.9 (0.9-1.3); Prothrombin Time 21.6 SECONDS (10.1-12.7)
== END ==
PROVIDERS: PCP Family Medicine; Visit Provider Family Medicine
DX: Z79.01 Long term (current) use of anticoagulants (principal); I48.91 Unspecified atrial fibrillation
CPT/HCPCS: 85610

== ENCOUNTER → 2022-11-04 | Outpatient (ROUT) | payer MEDICARE, OTHER, SELFPAY | LOC: LAB 12-14 11:50 | PROVIDERS: PCP Family Medicine; Visit Provider Family Medicine | DX: Z01.812 Encounter for preprocedural laboratory examination (principal); Z79.01 Long term (current) use of anticoagulants; I48.91 Unspecified atrial fibrillation | CPT/HCPCS: 85610 ==

== ENCOUNTER 2022-11-09 11:56 | Outpatient (CLI) | payer MEDICARE, OTHER, SELFPAY ==
[2022-11-09] VITALS (8 sets, daily range): BP systolic 113–145; BP diastolic 56–90; PULSE 59–68; RESP 15–20; TEMP 36.1; O2SAT 96–100
--- NOTE | 2022-11-09 12:00 | DI.RAD.S_ITS ---
PROCEDURE: PAIN L/SI FACET INJ/BLK 1STL INDICATIONS: SPONDYLOSIS COMPARISON: [facility], , PAIN L/SI FACET INJ/BLK 1STL, 03/02/2022, 16:40. FINDINGS: Fluoroscopic spot filming was performed to verify placement of spinal needles at the bilateral L4, L5 and S1 Clau-pedicle level(s), as labeled on the films. Appropriate location(s) of the needle tip(s) was confirmed by injection of iodinated contrast. IMPRESSION: Bilateral L4, L5 and S1 access needles for bilateral L4, L5 and S1 medial branch block Dictated by: Leydi Olson MD, PhD on 11/09/2022 at 14:05 Approved by: Leydi Olson MD, PhD on 11/09/2022 at 14:06
[2022-11-09] MEDS: MIDAZOLAM 2 MG/2 ML VIAL IV (13:20)
[2022-11-09] MEDS: BUPIVACAINE 0.5% (PF) 10 ML VIAL 2 ML INJ (13:24)
[2022-11-09] MEDS: iopamidoL 15 ML VIAL 3 ML INJ (13:25)
--- NOTE | 2022-11-09 13:34 | PM.PROC.IR.1 ---
Date/Time/Diagnoses Date of procedure: 11/09/22 Time of procedure: 13:34 Pre-procedure diagnosis: 1. FACET ARTHROPATHY Post-procedure diagnosis: same Procedure Notes Procedure: 1. Right L4, L5 and S1 MB BLOCKS LA Indications: Иван is referred by Dr. Stockton for treatment of Right Axial LBP. Physician: Blake Ventura Total Fluoroscopy time (seconds): 5 Total sedation minutes: 10 Complications: none Procedure in detail & Post-procedure care: DESCRIPTION OF PROCEDURE Fluoroscopically guided, contrast-controlled right L4, L5 and S1 medial branch blocks with 0.5cc of 0.5% Marcaine. Following review of allergy and review of potential side effects and complications, including, but not necessarily limited to, infection, allergic reaction, local tissue breakdown, nerve injury, paralysis, stroke and possible , the patient indicated that the patient understood and agreed to proceed. An informed consent document was signed by the patient, witnessed by a nurse, and placed in the patient's chart. After review of previous anaesthesic history and IV conscious sedation the patient was deemed safe to proceed with today?s procedure with IV conscious sedation as ASA class II designation. Safety time-out was performed to confirm patient ID, procedure to be performed and site of procedure. IV sedation was accomplished with a combination of 2mg of Versed was administered by the RN after DO order, titrated to patient comfort during the course of the procedure while the patient remained responsive to all verbal commands In the prone position, following sterile prep and drape of the lumbar region, the right L4, L5 and S1 anatomical location of the medial branch of the dorsal ramus was identified fluoroscopically. Subsequently an anesthetic skin wheal using 1% lidocaine solution was initiated at each of the anatomical spots. Subsequently then a 22-gauge 3.5-inch spinal needle was atraumatically introduced and advanced under fluoroscopic guidance at each of the corresponding sites at the right L4, L5 and S1 MB. After negative aspiration, 0.2 cc of Isovue 200 was injected, confirming placement without vascular or intrathecal uptake. Subsequently then 0.5 cc of 0.5% Marcaine solution was injected at each of the corresponding sites at the right L4, L5 and S1 medial branch locations. The patient tolerated the procedure well without signs or symptoms of complications. The procedure tolerated the procedure well without signs or symptoms of complications prior to transfer to the recovery area continued monitoring without incident. Post-procedure, the patient was monitored initiating provocative activities to measure the amount of relief from block of the facetogenic pain. The patient reported a VAS of 7 prior to the procedure and a post-procedure VAS of 1. It has been a pleasure to assist in the diagnostic and therapeutic care of your patient. POST OP INSTRUCTIONS The patient was provided with a Pain Log to complete over the next several hours and subsequent days prior to the patient's follow up with the ordering physician. If the patient has supervisor shuttle veneering relief to the solution applied, then they may be a candidate for medial branch rhizotomy. The patient is aware, was provided, once again, with a Pain Log and will follow up with the referring physician for review and clinical correlation.
== END 2022-11-09 13:55 | disposition home or self-care (01) ==
LOC: RAD 11:57
PROVIDERS: PCP Family Medicine; Referring Provider Physical Medicine & Rehabilitation; Visit Provider Physical Medicine & Rehabilitation
DX: M47.817 Spondylosis without myelopathy or radiculopathy, lumbosacral region (principal); M47.816 Spondylosis without myelopathy or radiculopathy, lumbar region
CPT/HCPCS: 64493; 64494; 99152; J2250

== ENCOUNTER → 2022-11-30 09:24 | Outpatient (ROUT) | payer MEDICARE, OTHER, SELFPAY ==
[2022-11-30 09:33] LABS: INR 2.6 (0.9-1.3); Prothrombin Time 30.3 SECONDS (10.1-12.7)
== END ==
PROVIDERS: PCP Family Medicine; Visit Provider Family Medicine
DX: I48.91 Unspecified atrial fibrillation (principal); Z79.01 Long term (current) use of anticoagulants
CPT/HCPCS: 85610

== ENCOUNTER → 2022-12-14 08:18 | Outpatient (ROUT) | payer MEDICARE, OTHER, SELFPAY ==
[2022-12-14 09:04] LABS: INR 2.5 (0.9-1.3); Prothrombin Time 28.5 SECONDS (10.1-12.7)
== END ==
PROVIDERS: PCP Family Medicine; Visit Provider Family Medicine
DX: Z79.01 Long term (current) use of anticoagulants (principal)
CPT/HCPCS: 85610

== ENCOUNTER 2023-01-11 10:46 | Outpatient (CLI) | payer MEDICARE, OTHER, SELFPAY ==
[2023-01-11] VITALS (8 sets, daily range): BP systolic 118–138; BP diastolic 64–81; PULSE 62–92; RESP 16–21; TEMP 37.1; O2SAT 97–100
--- NOTE | 2023-01-11 11:15 | DI.RAD.S_ITS ---
PROCEDURE: PAIN L/SI FACET INJ/BLK 1STL INDICATIONS: SPONDYLOSIS COMPARISON: [facility], , PAIN L/SI FACET INJ/BLK 1STL, 11/09/2022, 13:23. FINDINGS: Fluoroscopic spot filming was performed to verify placement of spinal needles at the right L4, L5 and S1 level(s), as labeled on the films. Appropriate location(s) of the needle tip(s) was confirmed by injection of iodinated contrast. IMPRESSION: Right L4, L5 and S1 access for medial branch block. Dictated by: Ermias Plata M.D. on 01/11/2023 at 14:25 Approved by: Ermias Plata M.D. on 01/11/2023 at 14:26
[2023-01-11] MEDS: MIDAZOLAM 2 MG/2 ML VIAL 1 MG IV (11:59)
[2023-01-11] MEDS: iopamidoL 15 ML VIAL 3 ML INJ (12:05)
[2023-01-11] MEDS: LIDOCAINE 2% INJ SDV 5ML 2 ML INJ (12:06)
--- NOTE | 2023-01-11 12:12 | P.PCN_ITS ---
Date/Time/Diagnoses Date of procedure: 01/11/23 Time of procedure: 12:12 Pre-procedure diagnosis: Lumbar Facet Arthropathy Post-procedure diagnosis: same Procedure Notes Procedure: 1. Right L4, L5 and S1 MB BLOCKS SA Indications: Иван is referred by Dr. Stockton for treatment of Right Axial LBP. Physician: Blake Ventura Total Fluoroscopy time (seconds): 5 Total sedation minutes: 10 Complications: none Procedure in detail & Post-procedure care: DESCRIPTION OF PROCEDURE Fluoroscopically guided, contrast-controlled right L4, L5 and S1 medial branch blocks with 0.5cc of 2% Lidocaine. Following review of allergy and review of potential side effects and complications, including, but not necessarily limited to, infection, allergic reaction, local tissue breakdown, nerve injury, paralysis, stroke and possible , the patient indicated that the patient understood and agreed to proceed. An informed consent document was signed by the patient, witnessed by a nurse, and placed in the patient's chart. After review of previous anaesthesic history and IV conscious sedation the patient was deemed safe to proceed with today?s procedure with IV conscious sedation as ASA class II designation. Safety time-out was performed to confirm patient ID, procedure to be performed and site of procedure. IV sedation was accomplished with a combination of 1mg of Versed was administered by the RN after DO order, titrated to patient comfort during the course of the procedure while the patient remained responsive to all verbal commands In the prone position, following sterile prep and drape of the lumbar region, the right L4, L5 and S1 anatomical location of the medial branch of the dorsal ramus was identified fluoroscopically. Subsequently an anesthetic skin wheal using 1% lidocaine solution was initiated at each of the anatomical spots. Subsequently then a 22-gauge 3.5-inch spinal needle was atraumatically introduced and advanced under fluoroscopic guidance at each of the corresponding sites at the right L4, L5 and S1 MB. After negative aspiration, 0.2 cc of Isovue 200 was injected, confirming placement without vascular or intrathecal uptake. Subsequently then 0.5 cc of 2% Lidocaine solution was injected at each of the corresponding sites at the right L4, L5 and S1 medial branch locations. The patient tolerated the procedure well without signs or symptoms of complications. The procedure tolerated the procedure well without signs or symptoms of complications prior to transfer to the recovery area continued monitoring without incident. Post-procedure, the patient was monitored initiating provocative activities to measure the amount of relief from block of the facetogenic pain. The patient reported a VAS of 7 prior to the procedure and a post-procedure VAS of 1. It has been a pleasure to assist in the diagnostic and therapeutic care of your patient. POST OP INSTRUCTIONS The patient was provided with a Pain Log to complete over the next several hours and subsequent days prior to the patient's follow up with the ordering physician. If the patient has vice president of software development relief to the solution applied, then they may be a candidate for medial branch rhizotomy. The patient is aware, was provided, once again, with a Pain Log and will follow up with the referring physician for review and clinical correlation.
--- NOTE | 2023-01-11 14:47 | PC.NURSE ---
Patient steady when returning from procedure to pre-post room, however; at time of discharge patient with unsteady gait in BLE. Assisted back into recliner. Patient remained unsteady until 1445 when he was able to ambulate without assistance and reported feeling at his baseline gait. Discharged per protocol.
== END 2023-01-11 14:45 | disposition home or self-care (01) ==
PROVIDERS: PCP Family Medicine; Referring Provider Physical Medicine & Rehabilitation; Visit Provider Physical Medicine & Rehabilitation
DX: M47.817 Spondylosis without myelopathy or radiculopathy, lumbosacral region (principal); M47.816 Spondylosis without myelopathy or radiculopathy, lumbar region
CPT/HCPCS: 64493; 64494; 99152; J2250

== ENCOUNTER 2023-03-08 07:27 | Outpatient (CLI) | payer MEDICARE, OTHER, SELFPAY ==
[2023-03-08] VITALS (10 sets, daily range): BP systolic 118–141; BP diastolic 68–80; PULSE 58–64; RESP 16–21; TEMP 36.3; O2SAT 95–98
[2023-03-08] MEDS: MIDAZOLAM 2 MG/2 ML VIAL 1 MG IV ×2 (07:59→08:11)
--- NOTE | 2023-03-08 08:00 | DI.RAD.S_ITS ---
PROCEDURE: PAIN L/S MED/LAT N RFA INDICATIONS: facet arthopathy COMPARISON: [facility], , PAIN L/S MED/LAT N RFA, 10/24/2018, 12:14. FINDINGS: Fluoroscopic spot filming was performed to verify placement of spinal needles at the right L4, L5 and S1 level(s), as labeled on the films. Appropriate location(s) of the needle tip(s) was confirmed by injection of iodinated contrast. IMPRESSION: Intra procedural examination demonstrating appropriate positions of the needles. Dictated by: Ermias Plata M.D. on 03/08/2023 at 10:27 Approved by: Ermias Plata M.D. on 03/08/2023 at 10:31
[2023-03-08] MEDS: BUPIVACAINE 0.5% (PF) 10 ML VIAL 2 ML INJ (08:10)
[2023-03-08] MEDS: LIDOCAINE 1% 20 ML 5 ML INJ (08:11)
--- NOTE | 2023-03-08 08:39 | P.PCN_ITS ---
Date/Time/Diagnoses Date of procedure: 03/08/23 Time of procedure: 08:39 Pre-procedure diagnosis: 1. RECALCITRANT FACET ARTHROPATHY Post-procedure diagnosis: same Procedure Notes Procedure: 1. RIGHT L4 AND L5 MEDIAL BRANCH RADIOFREQUENCY NEUROTOMY AND RIGHT S1 DORSAL RAMUS BRANCH RADIOFREQUENCY NEUROTOMY Indications: Иван is referred by Dr. Stockton for treatment of facet arthropathy. Physician: Blake Ventura Total Fluoroscopy time (seconds): 14 Total sedation minutes: 34 Complications: none Procedure in detail & Post-procedure care: DESCRIPTION OF PROCEDURE Right L4 and L5 medial branch radiofrequency neurotomy and right S1 dorsal ramus branch radiofrequency neurotomy under fluoroscopy with conscious sedation. The patient is well known to this clinic having undergone previous facet injections with good but temporary relief. The patient has experienced appropriate, concordant relief with previous facet and median branch blocks but the patient's pain has been recalcitrant to further conservative measures. Therefore, based upon the patient's relief and persistent symptoms, the patient is considered an appropriate candidate for facet rhizotomy. All of the patient's questions regarding the risks versus benefits of the procedure, including, but not limited to, bleeding, infection, temporary as well as lasting nerve injury, paralysis, stroke, and , as well treatment alternatives were answered to satisfaction. After review of previous anaesthesic history and IV conscious sedation the patient was deemed safe to proceed with today?s procedure with IV conscious sedation as ASA class II designation. Safety time-out was performed to confirm patient ID, procedure to be performed and site of procedure. IV sedation was accomplished with a combination of 2mg of Versed was administered by the RN after DO order, titrated to patient comfort during the course of the procedure while the patient remained responsive to all verbal commands. After obtaining informed consent, denial of pertinent drug allergies, as well as being made aware of the potential risks of bleeding, infection, spinal cord trauma, paralysis, temporary and permanent nerve damage, seizure, stroke, and possible , the patient was brought to the fluoroscopy suite and positioned prone on the fluoroscopy table. The lumbar region was prepped with Betadine and covered with a fenestrated drape in the usual sterile fashion. Appropriate monitors applied including pulse oximeter, pulse, and blood pressure for regular monitoring throughout the procedure. After local infiltration using 1% lidocaine, under fluoroscopic guidance, a 10- cm RF insulated needle with a 10-mm active tip was positioned parallel to the junction of the right sacral ala and the superior articulating process where the S1 dorsal ramus resides. Needle placement was confirmed with sensory stimulation at 50 Hz, with motor stimulation of .5v on the right which produced local stimulation without radicular component. The stimulation was then increased to 2v with, once again, only local multifidus stimulation without radicular component. This was then followed by two discreet lesions performed at 80 degrees Celsius for 90 seconds each. The needle was then removed and the identical procedure was performed along the length of the right L5 medial branch with motor stimulation at .7v on the right. The identical procedure was once again performed along the length of the right L4 medial branch with motor stimulation of .5v on the right. The patient tolerated the procedure well without signs or symptoms of complications prior to transfer to the recovery area continued monitoring without incident. The patient was then transferred to the recovery area where they were observed for an appropriate period of time after the injection. The patient was then transferred to the recovery area where they were observed for an appropriate period of time after the injection. The patient reported a VAS score of 8 prior to the procedure and a post- procedure VAS of 1. POST OP INSTRUCTIONS The patient was provided a Pain Log to continue to record the patient's response to the target-specific procedure prior to the patient's follow-up visit with the referring physician. Additionally, specific post-injection care instructions and a contact number to our office were provided if concerns arise regarding possible complications associated with the procedure are suspected.
== END 2023-03-08 08:48 | disposition home or self-care (01) ==
LOC: RAD 07:28
PROVIDERS: PCP Family Medicine; Referring Provider Physical Medicine & Rehabilitation; Visit Provider Physical Medicine & Rehabilitation
DX: M47.817 Spondylosis without myelopathy or radiculopathy, lumbosacral region (principal); M47.816 Spondylosis without myelopathy or radiculopathy, lumbar region
CPT/HCPCS: 64635; 64636; 99152; 99153; J2250

== ENCOUNTER 2023-08-09 07:17 | Observation (INO) | payer MEDICARE, SELFPAY ==
[2023-08-09] VITALS (44 sets, daily range): BP systolic 98–160; BP diastolic 52–88; PULSE 59–89; RESP 18–53; TEMP 36.7–36.9; O2SAT 94–98; BMI 27.1
--- NOTE | 2023-08-09 07:42 | DI.RAD.S_ITS ---
PROCEDURE: XR CHEST 1V INDICATIONS: covid, weakness, fall TECHNIQUE: One view of the chest was acquired. COMPARISON: [facility], CR, XR CHEST 2V, 08/02/2019, 8:37. FINDINGS: Surgical changes and devices: None. Lungs and pleura: Lungs are clear. No pleural effusions or pneumothorax. Mediastinum: Mildly tortuous thoracic aorta. Heart size is enlarged. Bones and chest wall: No suspicious bony lesions. Overlying soft tissues appear unremarkable. IMPRESSION: No acute cardiopulmonary pathology. Dictated by: Jay Jung M.D. on 08/09/2023 at 8:42 Approved by: Jay Jung M.D. on 08/09/2023 at 8:42
--- NOTE | 2023-08-09 07:43 | ED.GENADULT ---
HPI - General Adult General Chief complaint: Weakness Stated complaint: Weak Time Seen by Provider: 08/09/23 07:18 Source: patient and EMS Mode of arrival: EMS History of Present Illness HPI narrative: 83-year-old gentleman with a history of coronary artery disease, hypertension, hyperlipidemia, chronic atrial fibrillation no longer anticoagulated secondary to increased bruising and risk of falling soft diagnosed with COVID at home 3 days ago with increasing weakness. He has not complaining of significant cough or dyspnea. He has a minor runny nose. He has been increasingly weak and last night was trying to stand from a chair and simply slid down to the floor and was unable to get up. He did have an episode of fecal incontinence. Was found this morning and brought in by medics. Initial pressure noted by medics was 70/40. He was given 250 cc with a nice response and blood pressure on arrival in the emergency department is 101/64. He is hard of hearing, but otherwise alert and complaining of no pain, dyspnea, cough just global weakness to the point that he is having difficulty sitting up or roll over. He does not describe significant fevers, headache, chest pain, palpitations. Related Data Home Medications Medication Instructions Recorded Confirmed allopurinol 100 mg tablet 100 mg PO DAILY 02/15/22 03/30/23 atorvastatin 40 mg tablet 40 mg PO BEDTIME 02/15/22 03/30/23 metoprolol succinate 25 mg 25 mg PO DAILY 02/15/22 03/30/23 tablet,extended release 24 hr aspirin 81 mg chewable tablet 1 tab PO DAILY 02/15/23 03/30/23 Previous Rx's Medication Instructions Recorded tramadol 50 mg tablet 50 mg PO TID PRN pain #30 tabs 02/15/23 Allergies Allergy/AdvReac Type Severity Reaction Status Date / Time No Known Drug Allergies Allergy Verified 03/30/23 09:39 Review of Systems Review of Systems Narrative: Pertinent positive and negative findings as per HPI Patient History Medical History (Updated 08/09/23 @ 09:57 by Chanel Penny MD) CVA (cerebral vascular accident) Myocardial infarction Social History Smoking Status: Former smoker Smoking Status: Former smoker Substance Use Type: does not use Exam Initial Vital Signs Initial Vital Signs: Vital Signs Pulse Rate 62 08/09/23 07:25 Respiratory Rate 22 08/09/23 07:25 Pulse Oximetry 97 08/09/23 07:25 General: Healthy appearing, in no acute distress. Able to give a complete and coherent history. Well-nourished well-developed HEENT: Moist mucous membranes, normal sclera with reactive pupils, hard of hearing Respiratory: Lungs are clear to auscultation, no wheezing no rales no rhonchi. Full and symmetrical air movement Cardiac: Irregular rate in the 60s various no murmurs appreciated. Abdomen: Soft, nontender, good bowel tones, no flank pain Skin: Patient is cleaned up. He has a minor contusion to the right flank. Some dry skin over the top of the right buttock. No significant skin breakdown Neurologic: Dramatic global weakness but otherwise Grossly neurologically intact with no obvious asymmetries or abnormalities Extremities: No trauma beyond the minor contusion to the right flank, well perfused Psych: Cooperative, appropriate insight and affect Course Orders Ordered: ED Orders 08/09/23 07:20 BNP [NT-proBNP (BNP-Adult 18+)] Stat Complete Blood Count AUTO DIFF Stat Comprehensive Metabolic Panel Stat Troponin & CK Cardiac Panel Stat 08/09/23 07:42 XR chest 1V Stat 08/09/23 07:48 EKG-12 Lead Stat Discontinued Medications Sodium Chloride (Normal Saline 0.9%) 1,000 mls @ 1,000 mls/hr IV BOLUS ONE Stop: 08/09/23 08:41 Last Infusion: 08/09/23 09:03 Dose: Infused Documented By: Admin: 08/09/23 07:52 Dose: 1,000 mls/hr Documented By: SHANNA Ondansetron HCl (Ondansetron 4 Mg/2 Ml Inj) 4 mg IV NOW ONE Stop: 08/09/23 07:43 Last Admin: 08/09/23 07:52 Dose: Not Given Documented By: SHANNA Vital Signs Vital signs: Vital Signs - 8 hr 08/09/23 07:25 08/09/23 07:26 08/09/23 07:26 Temperature Pulse Rate 62 62 Respiratory Rate 22 23 Blood Pressure 124/62 Pulse Oximetry 97 98 Oxygen Delivery Method 08/09/23 07:27 08/09/23 07:30 08/09/23 07:30 Temperature 98.0 F Pulse Rate 63 64 Respiratory Rate 20 21 Blood Pressure 101/64 124/58 L Pulse Oximetry 97 98 Oxygen Delivery Method Room Air Room Air 08/09/23 07:40 08/09/23 07:40 08/09/23 07:50 Temperature Pulse Rate 68 Respiratory Rate 40 H Blood Pressure 145/67 H 143/60 H Pulse Oximetry 96 Oxygen Delivery Method 08/09/23 07:50 08/09/23 08:00 08/09/23 08:00 Temperature Pulse Rate 89 87 Respiratory Rate 23 28 H Blood Pressure 139/66 Pulse Oximetry 97 97 Oxygen Delivery Method 08/09/23 08:10 08/09/23 08:10 08/09/23 08:20 Temperature Pulse Rate 65 Respiratory Rate 22 Blood Pressure 146/70 H 132/69 Pulse Oximetry 98 Oxygen Delivery Method 08/09/23 08:20 08/09/23 08:30 08/09/23 08:31 Temperature Pulse Rate 60 60 Respiratory Rate 25 H 21 Blood Pressure 144/65 H Pulse Oximetry 97 95 Oxygen Delivery Method 08/09/23 08:31 08/09/23 08:40 08/09/23 08:40 Temperature Pulse Rate 61 61 Respiratory Rate 21 24 Blood Pressure 135/61 Pulse Oximetry 96 97 Oxygen Delivery Method 08/09/23 08:50 08/09/23 08:50 08/09/23 09:00 Temperature Pulse Rate 61 Respiratory Rate 23 Blood Pressure 131/68 129/68 Pulse Oximetry 96 Oxygen Delivery Method 08/09/23 09:00 08/09/23 09:10 08/09/23 09:10 Temperature Pulse Rate 59 L 59 L Respiratory Rate 24 19 Blood Pressure 141/71 H Pulse Oximetry 95 96 Oxygen Delivery Method 08/09/23 09:20 08/09/23 09:20 08/09/23 09:30 Temperature Pulse Rate 59 L Respiratory Rate 20 Blood Pressure 145/71 H 142/74 H Pulse Oximetry 96 Oxygen Delivery Method Room Air 08/09/23 09:30 08/09/23 09:40 08/09/23 09:40 Temperature Pulse Rate 59 L 59 L Respiratory Rate 20 22 Blood Pressure 151/77 H Pulse Oximetry 96 97 Oxygen Delivery Method 08/09/23 09:50 08/09/23 09:50 Temperature Pulse Rate 60 Respiratory Rate 19 Blood Pressure 144/69 H Pulse Oximetry 97 Oxygen Delivery Method Medical Decision Making Lab Data 08/09/23 07:20 08/09/23 07:20 Labs: Lab Results 08/09/23 Range/Units 07:20 WBC 7.0 (4.5-11.0) X10^3/uL RBC 4.51 (4.5-5.9) X10^6/uL Hgb 13.9 (13.5-17.5) g/dL Hct 41.9 (41-53) % MCV 92.9 (80-100) fL MCH 30.9 (26-34) PG MCHC 33.2 (30-36) % RDW 14.2 (11.6-14.8) % Plt Count 159 (150-400) X10^3/uL Neut % (Auto) 66.5 (50-75) % Lymph % (Auto) 22.5 L (25-40) % [place] % (Auto) 10.3 (3-14) % Eos % (Auto) 0.4 L (2-4) % Baso % (Auto) 0.3 (0-2) % Neut # (Auto) 4600 (6441-0357) /uL Lymph # (Auto) 1600 (2667-3558) /uL [place] # (Auto) 700 (0-900) /uL Eos # (Auto) 0 (0-450) /uL Baso # (Auto) 0 (0-100) /uL Sodium 136 L (137-145) mmol/L Potassium 4.1 (3.4-5.1) mmol/L Chloride 103 (98-107) mmol/L Carbon Dioxide 22 (22-32) mmol/L BUN 36 H (9-20) mg/dL Creatinine 1.52 H (0.66-1.25) mg/dL Estimated GFR 45 L (>60) mL/min BUN/Creatinine Ratio 23.7 H (6-22) Glucose 172 H (80-110) mg/dL Calcium 8.9 (8.4-10.2) mg/dL Total Bilirubin 0.9 (0.2-1.3) mg/dL AST 45 (17-59) IU/L ALT 29 (<50) IU/L Alkaline Phosphatase 53 (38-126) U/L Total Creatine Kinase 170 (55-170) U/L Troponin I < 0.012 (0.01-0.034) ng/mL NT-Pro-B Natriuret Pep 1050 H (<450) pg/mL Total Protein 7.6 (6.3-8.2) g/dL Albumin 4.4 (3.5-5.0) g/dL Globulin 3.2 (1.7-4.1) g/dL Albumin/Globulin Ratio 1.4 (1.0-2.8) MDM Narrative Medical decision making narrative: CC: Weakness, slid to the floor approximately 6 hours on the floor. COVID diagnosis positive 3 days ago Complicating co-morbidities: COVID, coronary artery disease, hypertension, hyperlipidemia Data collected from: patient Social determinants of health that may influence the patients condition: Age Medical records reviewed: Outpatient notes regarding back pain are reviewed. Primary care notes are not available Differential considered: Weakness secondary to COVID, acute coronary syndrome, sepsis, renal failure, rhabdomyolysis Exam documented above, pertinent findings include: Aside from dramatic weakness, his chronic atrial fibrillation in the minor contusion to the right flank exam is otherwise quite benign. He has not hypoxic and pulmonary exam is benign Lab Test results independently reviewed as above. Pertinent findings: CBC is unremarkable Chemistries show creatinine at 1.5 with no prior comparison. Glucose minimally elevated at 172. ProBNP slightly elevated at 1050 Troponin is undetectable Independently reviewed EKG: Sinus rhythm at a rate of 89. He does have a right bundle branch block but no other acute ischemic changes Imaging studies independently reviewed: Chest x-ray does not show acute abnormalities Discussion: 83-year-old gentleman on day 3-4 of COVID infection with global weakness, no hypoxia. He is far enough into his course that Paxlovid is not going to be of any benefit, he is not hypoxic so dexamethasone is not going to be helpful. Based on his global weakness in the fact that he has 4-5 more days of likely symptomatic COVID I am going to recommend hospitalization. We will contact his primary care provider Dr. Stockton Discharge Plan Departure Patient Disposition: Admitted as Observation Clinical Impression: Weakness, COVID
[2023-08-09] MEDS: SODIUM CHLORIDE 0.9% 1,000 ML 1000 ML IV (07:52)
[2023-08-09 07:59] LABS: Add Manual Diff / Slide Review NO; Basophils Absolute Auto 0 /uL (0-100); Basophils Percent Auto 0.3 % (0-2); Eosinophils Absolute Auto 0 /uL (0-450); Eosinophils Percent Auto 0.4 % (2-4); Hematocrit 41.9 % (41-53); Hemoglobin 13.9 g/dL (13.5-17.5); Lymphocytes Absolute Auto 1600 /uL (1100-4500); Lymphocytes Percent Auto 22.5 % (25-40); Mean Corpuscular HGB Conc 33.2 % (30-36); Mean Corpuscular Hemoglobin 30.9 PG (26-34); Mean Corpuscular Volume 92.9 fL (80-100); Monocytes Absolute Auto 700 /uL (0-900); Monocytes Percent Auto 10.3 % (3-14); Neutrophils Absolute Auto 4600 /uL (1500-7000); Neutrophils Percent Auto 66.5 % (50-75); Platelet Count 159 X10^3/uL (150-400); Red Blood Cell Count 4.51 X10^6/uL (4.5-5.9); Red Cell Distribution Width 14.2 % (11.6-14.8)
--- NOTE | 2023-08-09 08:00 | EKG_ITS ---
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
[2023-08-09 08:06] LABS: Alanine Aminotransferase 29 IU/L (<50); Albumin 4.4 g/dL (3.5-5.0); Albumin Globulin Ratio 1.4 (1.0-2.8); Alkaline Phosphatase 53 U/L (38-126); Aspartate Aminotransferase 45 IU/L (17-59); BUN Creatinine Ratio 23.7 (6-22); Bilirubin Total 0.9 mg/dL (0.2-1.3); Blood Urea Nitrogen 36 mg/dL (9-20); Calcium 8.9 mg/dL (8.4-10.2); Carbon Dioxide 22 mmol/L (22-32); Chloride 103 mmol/L (98-107); Creatine Kinase 170 U/L (55-170); Estimated Glomerular Filt Rate 45 mL/min (>60); Globulin 3.2 g/dL (1.7-4.1); Glucose 172 mg/dL (80-110); HEMOLYSIS 18 (0-50); Potassium 4.1 mmol/L (3.4-5.1); Sodium 136 mmol/L (137-145); Total Protein 7.6 g/dL (6.3-8.2)
[2023-08-09 08:15] LABS: NT-proBNP (BNP-Adult 18+) 1050 pg/mL (<450)
[2023-08-09 08:18] LABS: Troponin I < 0.012 ng/mL (0.01-0.034)
--- NOTE | 2023-08-09 13:22 | P.HP_ITS ---
History of Present Illness History of Present Illness Date Patient Seen: 08/09/23 Time Patient Seen: 18:06 Chief complaint: Weak Narrative: This is a very pleasant 83-year-old gentleman with past medical history of previous AFib with Watchman, CVA, coronary artery disease, hypertension hyperlipidemia with mild cognitive dysfunction who presents to the ER with profound weakness and frequent falling due to COVID-19 respiratory illness. Workup in the ER showed patient was afebrile with normal oxygenation and due to acute kidney injury, global weakness and frequent falling patient was admitted to the hospital for further treatment and workup. Patient has been in his usual state of health and was exposed to COVID through his . Patient denies any other symptoms. He feels slightly short of breath but denies chest pain or palpitations or lightheadedness or dizziness. He denies any presyncope or syncope but fell just due to weakness in his legs giving out. He has not been able to keep up on his fluids and has not been able to eat much since he was diagnosed with COVID-19 illness. He also had a bout of diarrhea. Denies any blood in his stools or black tarry stools or hematochezia. Twelve point review of systems is otherwise negative Past medical history: 1. Atrial fibrillation but patient underwent Watchman left atrial appendage closure device. 2. History of CVA 3. Coronary artery disease 4. Hypertension 5. Hyperlipidemia 6. Gout 7. Degenerative joint disease 8. Lumbar radiculopathy 9. 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 Cervical and lumbar spinal stenosis 11. Psoriasis 12. 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 Patient has a daughter and a son who live locally for very involved in his care Family history: Negative for any respiratory abnormalities [facility] Medical History (Updated 08/09/23 @ 14:00 by Brandi A.M. Shook, RN) Presence of Watchman left atrial appendage closure device Afib Hyperlipemia Hypertension CAD (coronary artery disease) CVA (cerebral vascular accident) Myocardial infarction Social History household members: spouse Smoking Status: Former smoker alcohol intake: current Meds Home Medications and Allergies Home Medications Medication Instructions Recorded Confirmed Type allopurinol 100 mg tablet 100 mg PO DAILY 02/15/22 08/09/23 History atorvastatin 40 mg tablet 40 mg PO BEDTIME 02/15/22 08/09/23 History metoprolol succinate 25 mg 25 mg PO DAILY 02/15/22 08/09/23 History tablet,extended release 24 hr aspirin 81 mg chewable tablet 1 tab PO DAILY 08/09/23 08/09/23 History Allergies Allergy/AdvReac Type Severity Reaction Status Date / Time No Known Drug Allergies Allergy Verified 03/30/23 09:39 Exam Vital Signs (past 8 hours): - 08/09/23 07:25 08/09/23 07:26 08/09/23 07:26 Temperature Pulse Rate 62 62 Respiratory Rate 22 23 Blood Pressure 124/62 Pulse Oximetry 97 98 Oxygen Delivery Method 08/09/23 07:27 08/09/23 07:30 08/09/23 07:30 Temperature 98.0 F Pulse Rate 63 64 Respiratory Rate 20 21 Blood Pressure 101/64 124/58 L Pulse Oximetry 97 98 Oxygen Delivery Method Room Air Room Air 08/09/23 07:40 08/09/23 07:40 08/09/23 07:50 Temperature Pulse Rate 68 Respiratory Rate 40 H Blood Pressure 145/67 H 143/60 H Pulse Oximetry 96 Oxygen Delivery Method 08/09/23 07:50 08/09/23 08:00 08/09/23 08:00 Temperature Pulse Rate 89 87 Respiratory Rate 23 28 H Blood Pressure 139/66 Pulse Oximetry 97 97 Oxygen Delivery Method 08/09/23 08:10 08/09/23 08:10 08/09/23 08:20 Temperature Pulse Rate 65 Respiratory Rate 22 Blood Pressure 146/70 H 132/69 Pulse Oximetry 98 Oxygen Delivery Method 08/09/23 08:20 08/09/23 08:30 08/09/23 08:31 Temperature Pulse Rate 60 60 Respiratory Rate 25 H 21 Blood Pressure 144/65 H Pulse Oximetry 97 95 Oxygen Delivery Method 08/09/23 08:31 08/09/23 08:40 08/09/23 08:40 Temperature Pulse Rate 61 61 Respiratory Rate 21 24 Blood Pressure 135/61 Pulse Oximetry 96 97 Oxygen Delivery Method 08/09/23 08:50 08/09/23 08:50 08/09/23 09:00 Temperature Pulse Rate 61 Respiratory Rate 23 Blood Pressure 131/68 129/68 Pulse Oximetry 96 Oxygen Delivery Method 08/09/23 09:00 08/09/23 09:10 08/09/23 09:10 Temperature Pulse Rate 59 L 59 L Respiratory Rate 24 19 Blood Pressure 141/71 H Pulse Oximetry 95 96 Oxygen Delivery Method 08/09/23 09:20 08/09/23 09:20 08/09/23 09:30 Temperature Pulse Rate 59 L Respiratory Rate 20 Blood Pressure 145/71 H 142/74 H Pulse Oximetry 96 Oxygen Delivery Method Room Air 08/09/23 09:30 08/09/23 09:40 08/09/23 09:40 Temperature Pulse Rate 59 L 59 L Respiratory Rate 20 22 Blood Pressure 151/77 H Pulse Oximetry 96 97 Oxygen Delivery Method 08/09/23 09:50 08/09/23 09:50 08/09/23 10:00 Temperature Pulse Rate 60 Respiratory Rate 19 Blood Pressure 144/69 H 149/70 H Pulse Oximetry 97 Oxygen Delivery Method 08/09/23 10:00 08/09/23 10:10 08/09/23 10:10 Temperature Pulse Rate 62 61 Respiratory Rate 23 22 Blood Pressure 135/70 Pulse Oximetry 97 96 Oxygen Delivery Method Room Air 08/09/23 10:20 08/09/23 10:20 08/09/23 10:30 Temperature Pulse Rate 62 60 Respiratory Rate 53 H 21 Blood Pressure 141/66 H Pulse Oximetry 96 96 Oxygen Delivery Method 08/09/23 10:30 08/09/23 10:40 08/09/23 10:40 Temperature Pulse Rate 62 Respiratory Rate 24 Blood Pressure 132/68 160/70 H Pulse Oximetry 97 Oxygen Delivery Method 08/09/23 10:50 08/09/23 10:50 08/09/23 11:00 Temperature Pulse Rate 64 62 Respiratory Rate 22 24 Blood Pressure 151/56 H Pulse Oximetry 97 97 Oxygen Delivery Method 08/09/23 11:01 08/09/23 11:01 08/09/23 11:11 Temperature Pulse Rate 62 63 Respiratory Rate 24 28 H Blood Pressure 148/67 H Pulse Oximetry 97 95 Oxygen Delivery Method 08/09/23 11:11 08/09/23 11:20 08/09/23 11:20 Temperature Pulse Rate 61 Respiratory Rate 21 Blood Pressure 135/69 131/71 Pulse Oximetry 95 Oxygen Delivery Method 08/09/23 11:30 08/09/23 11:30 08/09/23 11:40 Temperature Pulse Rate 62 Respiratory Rate 21 Blood Pressure 135/74 138/75 Pulse Oximetry 95 Oxygen Delivery Method 08/09/23 11:40 08/09/23 11:50 08/09/23 11:50 Temperature Pulse Rate 63 62 Respiratory Rate 22 20 Blood Pressure 128/72 Pulse Oximetry 96 96 Oxygen Delivery Method 08/09/23 12:00 08/09/23 12:01 08/09/23 12:01 Temperature Pulse Rate 67 67 Respiratory Rate 22 22 Blood Pressure 119/88 Pulse Oximetry 97 96 Oxygen Delivery Method 08/09/23 12:21 08/09/23 12:21 08/09/23 12:30 Temperature Pulse Rate 74 69 Respiratory Rate 37 H 27 H Blood Pressure 132/68 Pulse Oximetry 94 96 Oxygen Delivery Method 08/09/23 12:30 08/09/23 12:40 08/09/23 12:40 Temperature Pulse Rate 68 Respiratory Rate 24 Blood Pressure 127/71 119/67 Pulse Oximetry 97 Oxygen Delivery Method 08/09/23 12:50 08/09/23 12:50 08/09/23 13:00 Temperature Pulse Rate 69 74 Respiratory Rate 23 33 H Blood Pressure 120/75 Pulse Oximetry 95 96 Oxygen Delivery Method 08/09/23 13:01 08/09/23 13:01 Temperature Pulse Rate 74 Respiratory Rate 30 H Blood Pressure 98/52 L Pulse Oximetry 95 Oxygen Delivery Method Oxygen Delivery Method Room Air Narrative Exam Narrative: Patient is alert and oriented x3 Blood pressure is low 98/52 Vital signs are otherwise stable HEENT shows nasal congestion oropharynx shows no erythema or exudates Neck: Supple without adenopathy or thyromegaly Lungs show fine expiratory wheezes posteriorly but no rhonchi. No increased work of breathing Cor: Regular rate and rhythm with distant S1-S2 Abdomen: Positive bowel sounds, soft, nontender, nondistended Extremities no edema, pulses intact Skin with diffuse bruising Neurologic exam nonfocal Objective Labs 08/09/23 07:20 08/09/23 07:20 Labs: Laboratory Results - last 24 hr 08/09/23 07:20 WBC 7.0 RBC 4.51 Hgb 13.9 Hct 41.9 MCV 92.9 MCH 30.9 MCHC 33.2 RDW 14.2 Plt Count 159 Neut % (Auto) 66.5 Lymph % (Auto) 22.5 L [place] % (Auto) 10.3 Eos % (Auto) 0.4 L Baso % (Auto) 0.3 Neut # (Auto) 4600 Lymph # (Auto) 1600 [place] # (Auto) 700 Eos # (Auto) 0 Baso # (Auto) 0 Sodium 136 L Potassium 4.1 Chloride 103 Carbon Dioxide 22 BUN 36 H Creatinine 1.52 H Estimated GFR 45 L BUN/Creatinine Ratio 23.7 H Glucose 172 H Calcium 8.9 Total Bilirubin 0.9 AST 45 ALT 29 Alkaline Phosphatase 53 Total Creatine Kinase 170 Troponin I < 0.012 NT-Pro-B Natriuret Pep 1050 H Total Protein 7.6 Albumin 4.4 Globulin 3.2 Albumin/Globulin Ratio 1.4 Assessment & Plan Assessment & Plan narrative: 83-year-old male with COVID-19 acute rest illness with acute kidney injury in profound global weakness [facility] for further treatment and workup. Supportive care. At this point I do not feel patient indicates acuity for Paxlovid No evidence of bacterial secondary infection at this time. We will recheck labs in the morning Supportive care and oxygen as needed. IV fluids have been given over the last 15 hours. We will discontinue in assessed tomorrow. 2. Acute kidney injury. Patient with normal kidney function as outpatient. Suspect related to ongoing illness and dehydration Plan: Patient was given IV fluid hydration and will switch to oral hydration and reassess in the morning Assessment 3. Acute global weakness which I think is related to COVID-19 illness and dehydration associated with that. Plan: Will consult PT. Will reassess in a.m.. Assessment 4. Hyperlipidemia Plan: Will continue atorvastatin Assessment 5. Hypertension with current hypotension Plan: Will hold metoprolol Will monitor blood pressure and reassess in a.m. hopefully we can start tomorrow Assessment 6. GI prophylaxis Plan: Oral pantoprazole Assessment 7. DVT prophylaxis Plan: Lovenox Assessment 8. Moderate cognitive dysfunction related to cerebral amyloid angiopathy Plan: No acute issues. Will continue to follow Code status is full code 76 minutes was spent with patient in reviewing his chart and discussing with physicians and nursing and reviewing clinic chart and reviewing workup in the hospital, meeting with patient, formulating a plan and documentation.
[2023-08-09] MEDS: SODIUM CHLORIDE 0.45% 1,000 ML 100 ML IV (14:35)
--- NOTE | 2023-08-09 16:19 | PC.NURSE ---
Admit Note Patient to room 223 from ER, pivot transferred to bed, SBA. Alert and oriented x3 but forgetful on some points. Requested this song writer to call [id number] Elizabeth to reconcile home meds which was done. Pt denies pain. RA with SpO2 in the upper 90s. Oriented to room and to call light and bed/tv controls. Bed alarm on.
[2023-08-09] MEDS: SODIUM CHLORIDE 0.9% FLUSH 10 ML IV (20:50)
[2023-08-09] MEDS: SENNOSIDES 8.6 MG TABLET 17.2 MG PO (20:50)
[2023-08-09] MEDS: ATORVASTATIN 20 MG TABLET 40 MG PO (20:50)
[2023-08-10 05:09] LABS: Add Manual Diff / Slide Review NO; Basophils Absolute Auto 0 /uL (0-100); Basophils Percent Auto 0.5 % (0-2); Eosinophils Absolute Auto 200 /uL (0-450); Eosinophils Percent Auto 4.4 % (2-4); Hematocrit 38.5 % (41-53); Hemoglobin 12.9 g/dL (13.5-17.5); Lymphocytes Absolute Auto 900 /uL (1100-4500); Lymphocytes Percent Auto 24.2 % (25-40); Mean Corpuscular HGB Conc 33.4 % (30-36); Mean Corpuscular Hemoglobin 30.7 PG (26-34); Mean Corpuscular Volume 91.8 fL (80-100); Monocytes Absolute Auto 400 /uL (0-900); Neutrophils Absolute Auto 2200 /uL (1500-7000); Neutrophils Percent Auto 58.9 % (50-75); Platelet Count 125 X10^3/uL (150-400); Red Blood Cell Count 4.19 X10^6/uL (4.5-5.9); Red Cell Distribution Width 14.1 % (11.6-14.8); White Blood Cell Count 3.7 X10^3/uL (4.5-11.0)
[2023-08-10 05:28] LABS: NT-proBNP (BNP-Adult 18+) 333 pg/mL (<450)
[2023-08-10] MEDS: PANTOPRAZOLE DR 20 MG TABLET PO (06:26)
[2023-08-10 08:00] VITALS: BP 107/74; PULSE 77; RESP 18; TEMP 37.1; O2SAT 95
[2023-08-10] MEDS: ENOXAPARIN 40 MG/0.4 ML SYRINGE SUBCUT (08:40)
[2023-08-10] MEDS: ASPIRIN EC 81 MG TABLET PO (08:40)
[2023-08-10] MEDS: SODIUM CHLORIDE 0.9% FLUSH 10 ML IV ×2 (08:41→22:00)
--- NOTE | 2023-08-10 13:35 | CM.DANOTE ---
Initial DCP Assessment Note Reviewed EMR and team rounds for status updates. This WEIGH BOX TENDER did not meet with pt in the room due to covid+ status. Pt lives independently with his in their own home in [place]. Family will transport pt back home once medically cleared for d/c, anticipated for tomorrow, 08/10. Payor: Medicare PCP: Dr. Stockton Pt is a 83 year-old M who self diagnosed himself with covid 3-days ago. He's had increasing weakness, had a soft fall to the floor and couldn't get back up. EMS was called, he was found to have low blood pressure and incontinent of stool when paramedics arrived. He's also very very hard of hearing. Unfortunately, pt had been laying on the floor for 6-hours before his found him and called EMS, resulting in rhabdomyelysis. His dx was weakness secondary to covid, and he was brought to the floor for further tx and monitoring in OBS status. DCP will continue to follow and assist with any d/c recommendations for assistance prior to his departure. Discharge Planning/Care Management CM Discharge Assessment Start: 08/10/23 13:33 Freq: Status: Active Protocol: Document 08/10/23 13:33 DPL (Rec: 08/10/23 13:35 DPL [id number]) Discharge Planning Assessment Assigned Steel Tier TOBY Whitten Advance Directives? No History Provided By Medical Record Has Patient been admitted in last 30 No days? Prior Living Arrangements House Household Members spouse Type of transporation used prior to Drives own vehicle admit Independent with ADL's Yes Is patient alert and oriented? Yes Caregiver for Another No Comment No identified d/c needs for DCP at this time. Barriers to Discharge No Discharge Plan Home Transportation Arrangement Family Referrals Initiated None needed Whiteboard Updated in Patient Room with Yes name and ext. # of [employer] Tier Review Status In Process Please Provide Date Initial DC 08/10/23 Assessment Was Performed
--- NOTE | 2023-08-10 13:45 | P.PN_ITS ---
Subjective Subjective Interval history: Patient had unremarkable night. He is still feeling weak but improved from yesterday. No focal abnormalities. He is eating without difficulty remained stable on room air. He is drinking ample fluids. Patient denies any chest pain. Patient has some shortness of breath. No nausea vomiting or diarrhea. No change in bowel movements. Patient was able to get up and shower today 12 point review of systems otherwise negative Exam Vital Signs (past 8 hours): - 08/10/23 07:00 08/10/23 08:00 Temperature 98.8 F Pulse Rate 77 Respiratory Rate 18 Blood Pressure 107/74 Pulse Oximetry 95 Oxygen Delivery Method Room Air Oxygen Flow Rate 0 Oxygen Delivery Method Room Air Oxygen Flow Rate 0 Narrative Exam Narrative: Afebrile vital signs are stable Blood pressure still low normal and patient has been off his metoprolol 25 mg O2 sats remained stable HEENT still with significant nasal congestion and coughing. Mucous membranes are moist and pink Neck is supple without adenopathy or thyromegaly and no jugular venous distention Chest: Improved air exchange. No obvious wheezing. No increased work of breathing Cor: Regular rate and rhythm without murmur Abdomen: Positive bowel sounds, soft, nontender, nondistended Extremities no edema Neurologic exam nonfocal although poor memory Objective Labs 08/10/23 04:05 08/09/23 07:20 Labs: Laboratory Results - last 24 hr 08/10/23 04:05 WBC 3.7 L RBC 4.19 L Hgb 12.9 L Hct 38.5 L MCV 91.8 MCH 30.7 MCHC 33.4 RDW 14.1 Plt Count 125 L Neut % (Auto) 58.9 Lymph % (Auto) 24.2 L [place] % (Auto) 12.0 Eos % (Auto) 4.4 H Baso % (Auto) 0.5 Neut # (Auto) 2200 Lymph # (Auto) 900 L [place] # (Auto) 400 Eos # (Auto) 200 Baso # (Auto) 0 NT-Pro-B Natriuret Pep 333 PFSH Medical History (Updated 08/09/23 @ 14:00 by Brandi Toscano RN) Presence of Watchman left atrial appendage closure device Afib Hyperlipemia Hypertension CAD (coronary artery disease) CVA (cerebral vascular accident) Myocardial infarction Social History household members: spouse Smoking Status: Former smoker alcohol intake: current Assessment & Plan Assessment & Plan narrative: 83-year-old male with COVID-19 acute rest illness with acute kidney injury in profound global weakness Assessment 1. COVID-19 illness improving slowly. Weakness has improved. Supportive care. At this point I do not feel patient indicates acuity for Paxlovid No evidence of bacterial secondary infection at this time. White blood cell count is low H&H slightly low oxygen as needed. Patient given IV fluids 1st 15 hours of hospitalization. Now drinking fluids. BNP is pending. 2. Acute kidney injury. Patient with normal kidney function as outpatient. Suspect related to ongoing illness and dehydration Plan: Patient was given IV fluid hydration and will switch to oral hydration. Will check BNP now as this was not done this morning. Assessment 3. Acute global weakness which I think is related to COVID-19 illness and dehydration associated with that. Plan: Will consult PT. Improving. I suspect patient will continue to improve with assistance and will discharge home likely tomorrow as long as he continues to improve Assessment 4. Hyperlipidemia Plan: Will continue atorvastatin Assessment 5. Hypertension with current hypotension. Blood pressure is starting to come back up but at this point and will not initiate metoprolol yet. Plan: Will hold metoprolol and reassess in a.m. Will monitor blood pressure and reassess in a.m. hopefully we can start tomorrow Assessment 6. GI prophylaxis Plan: Oral pantoprazole Assessment 7. DVT prophylaxis Plan: Lovenox Assessment 8. Moderate cognitive dysfunction related to cerebral amyloid angiopathy Plan: No acute issues. Patient seems clear today. Certainly suspect that acute infection and dehydration were contributing to overall cognitive state. Will continue to follow Assessment 9. Neutropenia. Suspect related to viral illness. Plan: Recheck in a.m. Assessment 10. Seborrheic dermatitis Plan will resume ketoconazole tomorrow Assessment 11. Elevated BNP on admit then received IV fluids. BNP surprisingly is normal today. BNP is pending. Suspect it was elevated due to acute kidney injury Code status is full code 51 minutes was spent with patient in reviewing his chart and discussing with physicians and nursing and reviewing clinic chart and reviewing workup in the hospital, meeting with patient, formulating a plan and documentation. Time-Based Coding :: [TOTAL MINUTES] spent with patient and on the chart (including review of chart, obtaining history, exam, reviewing outside data, placing orders, documenting exam and treatment plan, and counseling patient) on [DATE]. Quality VTE Deep Vein Thrombosis/Pulmonary Embolism Present on Admission: No
[2023-08-10 14:00] LABS: BUN Creatinine Ratio 28.7 (6-22); Blood Urea Nitrogen 33 mg/dL (9-20); Calcium 8.7 mg/dL (8.4-10.2); Carbon Dioxide 21 mmol/L (22-32); Chloride 109 mmol/L (98-107); Estimated Glomerular Filt Rate > 60 mL/min (>60); Glucose 98 mg/dL (80-110); HEMOLYSIS < 15 (0-50); Sodium 139 mmol/L (137-145)
[2023-08-10 19:00] VITALS: BP 157/74; PULSE 72; RESP 18; TEMP 36.7; O2SAT 95
[2023-08-10] MEDS: ATORVASTATIN 20 MG TABLET 40 MG PO (22:00)
[2023-08-10] MEDS: SENNOSIDES 8.6 MG TABLET 17.2 MG PO (22:00)
[2023-08-11 05:00] LABS: Add Manual Diff / Slide Review NO; Basophils Absolute Auto 0 /uL (0-100); Basophils Percent Auto 0.6 % (0-2); Eosinophils Absolute Auto 200 /uL (0-450); Eosinophils Percent Auto 6.7 % (2-4); Hematocrit 37.4 % (41-53); Hemoglobin 12.7 g/dL (13.5-17.5); Lymphocytes Absolute Auto 1000 /uL (1100-4500); Lymphocytes Percent Auto 28.7 % (25-40); Mean Corpuscular Hemoglobin 31.1 PG (26-34); Mean Corpuscular Volume 91.5 fL (80-100); Monocytes Absolute Auto 300 /uL (0-900); Monocytes Percent Auto 10.1 % (3-14); Neutrophils Absolute Auto 1800 /uL (1500-7000); Neutrophils Percent Auto 53.9 % (50-75); Platelet Count 131 X10^3/uL (150-400); Red Blood Cell Count 4.09 X10^6/uL (4.5-5.9); White Blood Cell Count 3.4 X10^3/uL (4.5-11.0)
[2023-08-11 05:15] LABS: BUN Creatinine Ratio 28.3 (6-22); Blood Urea Nitrogen 30 mg/dL (9-20); Calcium 8.8 mg/dL (8.4-10.2); Carbon Dioxide 23 mmol/L (22-32); Chloride 109 mmol/L (98-107); Estimated Glomerular Filt Rate > 60 mL/min (>60); Glucose 98 mg/dL (80-110); HEMOLYSIS < 15 (0-50); Sodium 139 mmol/L (137-145)
[2023-08-11] MEDS: PANTOPRAZOLE DR 20 MG TABLET PO (05:35)
[2023-08-11 08:00] VITALS: BP 124/82; PULSE 90; RESP 16; TEMP 36.6; O2SAT 96
[2023-08-11] MEDS: ASPIRIN EC 81 MG TABLET PO (08:59)
[2023-08-11] MEDS: ENOXAPARIN 40 MG/0.4 ML SYRINGE SUBCUT (08:59)
[2023-08-11] MEDS: SODIUM CHLORIDE 0.9% FLUSH 10 ML IV (09:00)
--- NOTE | 2023-08-11 09:32 | PM.DS.1 ---
History of Present Illness History of Present Illness Date Patient Seen: 08/11/23 Chief complaint: Weak Narrative: This is a very pleasant 83-year-old gentleman with past medical history of previous AFib with Watchman, CVA, coronary artery disease, hypertension hyperlipidemia with mild cognitive dysfunction who presents to the ER with profound weakness and frequent falling due to COVID-19 respiratory illness. Workup in the ER showed patient was afebrile with normal oxygenation and due to acute kidney injury, global weakness and frequent falling patient was admitted to the hospital for further treatment and workup. Patient has been in his usual state of health and was exposed to COVID through his . Patient denies any other symptoms. He feels slightly short of breath but denies chest pain or palpitations or lightheadedness or dizziness. He denies any presyncope or syncope but fell just due to weakness in his legs giving out. He has not been able to keep up on his fluids and has not been able to eat much since he was diagnosed with COVID-19 illness. He also had a bout of diarrhea. Denies any blood in his stools or black tarry stools or hematochezia. Twelve point review of systems is otherwise negative Discharge Providers Provider Date of admission: 08/09/23 10:13 Discharge Date: 08/11/23 Primary care physician: Sol Stockton MD Consults: 08/09/23 13:21 Consult to Discharge Planning Routine Comment: Discharge provider: Deborah Tarango MD Summary Hospital Course Discharge Diagnosis: COVID-19 MARISOL Acute global weakness Hyperlipidemia Hypotension superimposed on baseline hypertension Hospital Course: The pt was admitted with acute weakness and MARISOL after being found down at home. Weakness attributed to recent COVID infection and dehydration. His kidney function improved with hydration, as did his weakness. His home Metoprolol was held at admission due to mild hypotension. This was not continued at discharge due to persistently lower ranged BPs, not requiring treatment. This will likely need to be restarted as an outpatient. The pt was discharged home back to baseline, ambulating without difficulty with his walker. Status at Discharge Cognitive/behavioral status at discharge: at baseline, oriented Functional status at discharge: uses cane/walker Overall status at discharge: patient is back to baseline Exam Vital Signs (past 8 hours): - 08/11/23 08:00 Temperature 97.8 F Pulse Rate 90 Respiratory Rate 16 Blood Pressure 124/82 Pulse Oximetry 96 Oxygen Flow Rate 0 Oxygen Delivery Method Room Air Oxygen Flow Rate 0 Narrative Exam Narrative: Gen: NAD, sitting comfortably in chair CV: RRR, no murmurs Resp: clear to auscultation bilaterally Abd: soft, nontender, nondistended Ext: no edema Objective Labs 08/11/23 04:01 08/11/23 04:01 Labs: Laboratory Results - last 24 hr 08/10/23 08/11/23 04:05 04:01 WBC 3.4 L RBC 4.09 L Hgb 12.7 L Hct 37.4 L MCV 91.5 MCH 31.1 MCHC 34.0 RDW 14.0 Plt Count 131 L Neut % (Auto) 53.9 Lymph % (Auto) 28.7 [place] % (Auto) 10.1 Eos % (Auto) 6.7 H Baso % (Auto) 0.6 Neut # (Auto) 1800 Lymph # (Auto) 1000 L [place] # (Auto) 300 Eos # (Auto) 200 Baso # (Auto) 0 Sodium 139 139 Potassium 4.0 4.0 Chloride 109 H 109 H Carbon Dioxide 21 L 23 BUN 33 H 30 H Creatinine 1.15 1.06 Estimated GFR > 60 > 60 BUN/Creatinine Ratio 28.7 H 28.3 H Glucose 98 98 Calcium 8.7 8.8 PFSH Medical History (Updated 08/09/23 @ 14:00 by Brandi Toscano RN) Presence of Watchman left atrial appendage closure device Afib Hyperlipemia Hypertension CAD (coronary artery disease) CVA (cerebral vascular accident) Myocardial infarction Social History household members: spouse Smoking Status: Former smoker alcohol intake: current Discharge Plan Discharge Plan Patient Disposition: Home Discharge orders & Medications Prescriptions: Continued aspirin 81 mg tablet,chewable 1 tab PO DAILY atorvastatin 40 mg tablet 40 mg PO BEDTIME allopurinol 100 mg tablet 100 mg PO DAILY Discontinued metoprolol succinate 25 mg tablet extended release 24 hr 25 mg PO DAILY Follow up/Referrals: Sol Stockton MD [Primary Care Provider] - 1 Week Diet/Activity/Treatments Diet: Diet as Tolerated and Regular Skin/Wound/Dressing Care Report to your healthcare provider any signs of infection, such as:: chills, fever Visit Report/Discharge Packet Stand Alone Forms: Patient Portal/API, Stroke Signs & Symptoms Discharge Data Primary Care Provider: Sol Stockton Attending Provider: Sol Stockton Admit Date/Time: 08/09/23 10:13 Discharges patient from system. Discharge Date/Time: 08/11/23 11:30 Quality VTE Deep Vein Thrombosis/Pulmonary Embolism Present on Admission: No
== END 2023-08-11 11:30 | disposition home or self-care (01) ==
LOC: ED 07:53 → AC 10:14
PROVIDERS: Admitting Provider Family Medicine; Emergency Provider Emergency Medicine; PCP Family Medicine; Visit Provider Family Medicine
DX: U07.1 COVID-19 (principal); N17.9 Acute kidney failure, unspecified; E86.0 Dehydration; I95.9 Hypotension, unspecified; R53.1 Weakness; I10 Essential (primary) hypertension; I48.91 Unspecified atrial fibrillation
CPT/HCPCS: 36415; 71045; 80048; 80053; 82550; 83880; 84484; 85025; 93005; 96360; 96372; 99238; 99284; G0378; J1650; J7050

== ENCOUNTER → 2023-10-24 | Outpatient (CLI) | payer MEDICARE, OTHER, SELFPAY ==
[2023-08-09 10:24] VITALS: BMI 27.1
--- NOTE | 2023-10-24 12:07 | DI.MRI.S_ITS ---
PROCEDURE: MR STROKE Pre- and post-contrast brain MRI, non-contrast brain MR angiogram, pre- and postcontrast neck MR angiogram INDICATIONS: VERTIGO/FREQUENT FALLS/MODERATE VASCULAR DEMENTIA TECHNIQUE: Brain: Noncontrast axial T1 spin echo, axial T2 fast spin echo, sagittal and axial FLAIR, coronal T2 fast spin echo, axial gradient echo, axial diffusion and ADC through the brain. After the administration of contrast, axial 3D VIBE of the cranial vasculature and brain. Brain MRA: Non-contrast 3-D time of flight MR angiogram, with multiple yflrzkh-jkxqyvkwa-htzmdheita (MIP) reformats performed. Neck MRA: Axial and sagittal TruFISP through the neck. Coronal dynamic MR angiogram during administration of contrast in the arterial and venous phases, with 3-dimenstional bzjrlbg-xwdyygesf-gtrprlcxoa (MIP) reformats constructed from subtraction images. COMPARISON: [facility], MR, MR STROKE, 01/08/2022, 20:05. FINDINGS: Image quality: Excellent. BRAIN: CSF spaces: Ventricles are normal in size and shape. Basal cisterns are patent. No extra-axial fluid collections. 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 Underlying atrophy and multifocal white matter chronic ischemic change present. No abnormal enhancement. Susceptibility sequences shows old left parietal parenchymal hemorrhage as well as evidence of subarachnoid siderosis scattered throughout both cerebral hemispheres in a pattern similar prior reflecting prior subarachnoid hemorrhage Skull and face: Calvarial marrow signal is normal. Orbits appear normal. Sinuses: Sinuses and mastoids are clear. BRAIN MR ANGIOGRAM: Anterior circulation: Intracranial internal carotid arteries are normal in size and enhancement. The flow within the paired anterior cerebral arteries is normal and symmetric. The flow within the middle cerebral arteries is normal and symmetric. The anterior communicating artery is seen. No stenoses, occlusions, or aneurysms. Posterior circulation: The visualized portions of the vertebral arteries demonstrate normal caliber, and join to form a normal appearing basilar artery. The flow within the posterior cerebral arteries is normal and symmetric. No stenoses, occlusions, or aneurysms. NECK MR ANGIOGRAM: Carotids: Great vessels demonstrate a conventional anatomy as they arise from the aortic arch. The origins of the common carotid arteries appear patent. The calibers and courses of both common carotid arteries are normal. The bifurcation regions appear normal bilaterally. The internal carotid arteries demonstrate normal course and caliber. Posterior circulation: The origins of the vertebral arteries appear patent. More superior portions of both vertebral arteries demonstrate normal course and caliber, and join to form a normal appearing basilar artery. Miscellaneous: Subclavian arteries appear patent. Pre-contrast images through the neck show no soft tissue abnormalities. 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 Old right occipital infarct, stable. Atrophy and white matter chronic ischemic change, moderate. Atherosclerotic plaque in both proximal internal carotid arteries without hemodynamically significant stenosis. No focal aneurysm or large vessel occlusion. Approved by: Ney Campbell M.D. on 10/24/2023 at 19:03
== END ==
LOC: MRI 12:06
PROVIDERS: Family Provider Family Medicine; PCP Family Medicine; Referring Provider Family Medicine; Visit Provider Family Medicine
DX: R42 Dizziness and giddiness (principal); F01.B0 Vascular dementia, moderate, without behavioral disturbance, psychotic disturbance, mood disturbance, and anxiety; I65.23 Occlusion and stenosis of bilateral carotid arteries; R29.6 Repeated falls; Z86.73 Personal history of transient ischemic attack (TIA), and cerebral infarction without residual deficits
CPT/HCPCS: 70544; 70549; 70553; A9579

== ENCOUNTER → 2024-04-09 10:50 | Outpatient (CLI) | payer MEDICARE, OTHER, SELFPAY ==
[2023-08-09 10:24] VITALS: BMI 27.1
--- NOTE | 2024-04-09 10:52 | DI.RAD.S_ITS ---
PROCEDURE: XR LUMBAR SPINE MIN 4V INDICATIONS: BACK PAIN TECHNIQUE: 5 views of the lumbar spine were acquired, including bilateral oblique views. COMPARISON: [facility], CR, XR LUMBAR SPINE MIN 4V, 02/11/2022, 12:18. FINDINGS: Bones: 5 nonrib-bearing vertebrae are present. Mild grade 1 retrolisthesis of L2 on L3 noted. There is otherwise normal bony alignment. Moderate to severe L5-S1 disc height loss noted. There is moderate L1-L2 and L2-L3 disc height loss with corresponding anterior osteophytosis. No vertebral body compression fractures. No suspicious bony lesions. Soft tissues: Overlying bowel gas pattern is normal. No suspicious soft tissue calcifications. Atherosclerotic vascular calcifications are noted. Oblique images: No pars defects. IMPRESSION: Multilevel spondylosis and mild grade 1 retrolisthesis of L2 on L3 without evidence of acute osseous abnormality. Dictated by: Pedro Marr M.D. on 04/10/2024 at 5:04 Approved by: Pedro Marr M.D. on 04/10/2024 at 5:06
--- NOTE | 2024-04-09 10:52 | DI.RAD.S_ITS ---
PROCEDURE: XR HIP W PEL IF DONE MELISSA MIN 4V INDICATIONS: RIGHT HIP PAIN TECHNIQUE: AP pelvis with lateral view(s) of the bilateral hip(s). COMPARISON: None. FINDINGS: Bones: Mild degenerative changes are noted bilaterally within the hips including acetabular subchondral sclerosis. No fractures or dislocations. Pelvic ring appears intact. No suspicious bony lesions. Soft tissues: The visualized bowel gas pattern is normal. No suspicious soft tissue calcifications. IMPRESSION: Mild degenerative change without evidence of acute osseous abnormality. Dictated by: Pedro Marr M.D. on 04/10/2024 at 5:03 Approved by: Pedro Marr M.D. on 04/10/2024 at 5:04
== END ==
PROVIDERS: Family Provider Family Medicine; PCP Family Medicine; Referring Provider Physical Medicine & Rehabilitation; Visit Provider Physical Medicine & Rehabilitation
DX: M47.27 Other spondylosis with radiculopathy, lumbosacral region (principal); M25.551 Pain in right hip; M47.26 Other spondylosis with radiculopathy, lumbar region; M48.061 Spinal stenosis, lumbar region without neurogenic claudication; M43.16 Spondylolisthesis, lumbar region; M47.22 Other spondylosis with radiculopathy, cervical region; Z79.01 Long term (current) use of anticoagulants
CPT/HCPCS: 72110; 73522; 99214

== ENCOUNTER 2024-04-17 12:22 | Outpatient (CLI) | payer MEDICARE, OTHER, SELFPAY ==
[2023-08-09 10:24] VITALS: BMI 27.1
[2024-04-17] VITALS (9 sets, daily range): BP systolic 104–146; BP diastolic 59–79; PULSE 57–66; RESP 13–18; TEMP 36.4; O2SAT 95–97
[2024-04-17] MEDS: MIDAZOLAM 2 MG/2 ML VIAL 1 MG IV (13:18)
[2024-04-17] MEDS: BETAMETHASONE 30 MG/5 ML MDV 12 MG INJ (13:24)
[2024-04-17] MEDS: BUPIVACAINE 0.25% (PF) VIAL 2 ML INJ (13:24)
[2024-04-17] MEDS: DEXAMETHASONE 10 MG/ML VIAL INJ (13:24)
[2024-04-17] MEDS: iopamidoL 15 ML VIAL 3 ML INJ (13:25)
--- NOTE | 2024-04-17 13:33 | P.PCN_ITS ---
Date/Time/Diagnoses Date of procedure: 04/17/24 Time of procedure: 13:33 Pre-procedure diagnosis: 1. HNP WITH RADICULAR FEATURES, 2. MULTILEVEL CENTRAL STENOSIS, Post-procedure diagnosis: same Procedure Notes Procedure: 1. FLUOROSCOPICALLY GUIDED CONTRAST CONTROLLED INTERLAMINAR EPIDURAL STEROID INJECTION - L5/S1 Indications: Иван is referred by Dr. Stockton for treatment of Bilateral Foraminal Stenosis L>R LE symptoms. Physician: Blake Ventura Total Fluoroscopy time (seconds): 5 Total sedation minutes: 11 Complications: none Procedure in detail & Post-procedure care: FINDINGS Multilevel Central Spinal Stenosis with Nerve Root Compression DESCRIPTION OF PROCEDURE Fluoroscopically guided, contrast-controlled L5/S1 translaminar epidural steroid injection. Following review of allergy and review of potential side effects and complications, including, but not necessarily limited to, infection, allergic reaction, local tissue breakdown, temporary as well as permanent nerve injury, paralysis, stroke and possible , the patient indicated that the patient understood and agreed to proceed. An informed consent document was signed by the patient, witnessed by a nurse, and placed in the patient's chart. Additionally, other treatment options including modalities, medications, and physical therapy were reviewed with the patient. After review of previous anaesthesic history and IV conscious sedation the patient was deemed safe to proceed with today?s procedure with IV conscious sedation as ASA class II designation. Safety time-out was performed to confirm patient ID, procedure to be performed and site of procedure. IV sedation was accomplished with a combination of 1mg of Versed administered by the RN after DO order, titrated to patient comfort during the course of the procedure while the patient remained responsive to all verbal commands. In the prone position, following sterile prep and drape of the lumbar region, the L5/S1 translaminar space was identified fluoroscopically. The skin was anesthetized via a 25-gauge, 1.5-inch needle with 1% lidocaine solution. At this point, a 22-gauge short bevel spinal needle was atraumatically introduced and advanced under fluoroscopic guidance into the region of the L5/S1 translaminar space. Depth was confirmed on lateral view. Radiological data, including multiple fluoroscopic views of the lumbar spine, reveal a spinal needle at the L5/S1 translaminar space. Lateral views then show placement of the needle in the epidural space. Subsequent views show contrast material flowing superiorly and inferiorly in the epidural space. No vascular or intrathecal uptake is observed. At this point, using loss of resistance technique with saline and air, the epidural space was entered. This was confirmed following negative aspiration with injection of approximately 1.5cc of Isovue 200, showing excellent epidural flow without vascular or intrathecal uptake. At this point, 1 cc of 1% lidocai ne solution combined with 3cc or 10mg of dexamethasone and 12mg of betamethasone was injected without incident. The patent tolerated the procedure without signs of symptoms of complications prior to transfer to the recovery area for further monitoring. The patient was then transferred to the recovery area where they were observed for an appropriate period of time after the injection. The patient reported a VAS score of 6 prior to the procedure and a post-procedure VAS of 0. POST OP INSTRUCTIONS The patient was provided a Pain Log to continue to record their response to the target-specific procedure prior to follow-up visit with their referring physician. Additionally, specific post-injection care instructions and a contact number to our office were provided if concerns arise regarding possible complications associated with the procedure are suspected.
== END 2024-04-17 13:55 | disposition home or self-care (01) ==
PROVIDERS: Family Provider Family Medicine; PCP Family Medicine; Referring Provider Physical Medicine & Rehabilitation; Visit Provider Physical Medicine & Rehabilitation
DX: M51.17 Intervertebral disc disorders with radiculopathy, lumbosacral region (principal); M48.07 Spinal stenosis, lumbosacral region
CPT/HCPCS: 62323; 99152; J0702; J1100; J2250; J3490